=== PATIENT | female | born 1960 | race Caucasian/White ===

== ENCOUNTER → 2019-02-14 17:22 | Outpatient (CLI) | payer BC, SELFPAY ==
[2019-02-20 10:00] LABS: HPV Reflexed? NOT INDICATED
== END ==
PROVIDERS: Referring Provider Obstetrics & Gynecology; Visit Provider Obstetrics & Gynecology
DX: Z12.4 Encounter for screening for malignant neoplasm of cervix (principal)
CPT/HCPCS: 88175; G0145

== ENCOUNTER 2021-03-31 11:30 | Outpatient (CLI) | payer BC, SELFPAY ==
[2021-04-06 20:32] LABS: HPV Reflexed? NOT INDICATED
== END 2021-03-31 23:59 | disposition home or self-care (01) ==
LOC: LABSPEC 04-01 09:04
PROVIDERS: Visit Provider Obstetrics & Gynecology
DX: Z12.4 Encounter for screening for malignant neoplasm of cervix (principal)
CPT/HCPCS: 88175; G0145

== ENCOUNTER 2024-02-27 14:28 | Inpatient (IN) | payer BC, SELFPAY ==
[2024-02-27 14:30] VITALS: BP 147/79; PULSE 113; RESP 18; TEMP 37.2; O2SAT 98; BMI 37.2
--- NOTE | 2024-02-27 15:13 | EX.ED.DYSGE1 ---
HPI History of Present Illness Chief Complaint: Flank Pain PFSH PFSH Medical History (Updated 02/27/24 @ 17:29 by Disha Taylor) Hyperthyroidism Kidney stones Kidney disease Non-smoker Acid reflux Hypothyroid Home Medications ?Medication ?Instructions ?Recorded ?Last Taken ?Type cholestyramine (with sugar) 4 gram 4 ea PO 4X/DAY 02/27/24 Unknown History oral powder ciprofloxacin HCl 500 mg tablet 500 mg PO BID #14 tabs 02/27/24 Unknown Rx (Cipro) levothyroxine 100 mcg tablet 100 mcg PO DAILY 02/27/24 Unknown History levothyroxine 25 mcg tablet mcg PO MOWEFR tue and tuesday02/27/24 Unknown History takes 25 mcg omeprazole 20 mg capsule,delayed 20 mg PO DAILY 02/27/24 Unknown History release oxycodone 5 mg tablet 5 mg PO Q6H PRN pain 3 days #14 02/27/24 Unknown Rx tabs sulfamethoxazole 800 1 tab PO BID 02/27/24 Unknown History mg-trimethoprim 160 mg tablet Allergy/AdvReac Type Severity Reaction Status Date / Time iodine Allergy PT UNSURE Verified 02/27/24 14:29 OF REACTION Surgical History (Updated 02/27/24 @ 16:37 by Sonia Cazares) History of cholecystectomy Social History Smoking Status: Never smoker EXAM Physical Exam Const Vital Signs: 02/27/24 14:30 02/27/24 16:29 Temperature 98.9 F Temperature Source Oral Pulse Rate 113 H 88 Respiratory Rate 18 16 Blood Pressure 147/79 H 99/40 L Blood Pressure Mean 101 59 Pulse Ox 98 98 Oxygen Delivery Method Room Air Room Air [facility] MDM Narrative Medical decision making narrative: HISTORY OF PRESENT ILLNESS: 63-year-old female presents concern for increased pain, nausea, vomiting diarrhea. No she was recently seen and diagnosed with a kidney stone./Kidney infection. She notes she was referred to urologist. She further states REVIEW OF SYSTEMS: Pertinent positives: Flank pain, vomiting, nausea, diarrhea Pertinent negatives: hematuria PHYSICAL EXAM: Nursing triage notes reviewed, Vital signs reviewed Constitutional: please see mdm HENT: MMM Eyes: Pupils equal round and reactive to light, Extraocular muscles intact Neck: No stridor, no JVD, full neck ROM Lungs: Clear to auscultation, No wheezing or rales. No increased work of breathing, no conversational dyspnea, no accessory muscle use, no nasal flaring. No respiratory distress noted Heart: Regular rate and rhythm, No murmurs, No rubs and No gallops, 2+ distal pulses (radial, femoral, posterior tibial) in all extremities Abdomen: Soft, there is no tenderness, rigidity, rebound or guarding, no obvious peritoneal signs, no palpable pulsatile abdominal masses, no auscultated abdominal bruit : Left CVA tenderness Extremities: No edema Neuro: No new focal neurological deficits, cranial nerves II through XII intact, 5/5 strength in all present extremities. Intact sensation to light touch in all present extremities, 2+ reflexes bilateral patella tendons. Skin: No rash or lesions noted MEDICAL DECISION MAKING: Chief Complaint: Flank pain External records reviewed: Reviewed Clinisync: Reviewed results from [facility]. Reviewed CT scan of the abdomen pelvis no contrast from February 21, 2024 which showed nonobstructing kidney stones Factors affecting care: Nephrolithiasis Social determinants of health: none History obtained from others: none Consults: Urology (Dr. Peñaloza) -recommended admission for definitive urologic intervention. MDM Narrative: Patient was initially tachycardic (rate of 113) otherwise afebrile and nontoxic-appearing. Exam left CVA tenderness I considered the following differential diagnosis: Nephrolithiasis, pyelonephritis ALL IMAGES (IF OBTAINED) HAVE BEEN PERSONALLY REVIEWED AND INTERPRETED BY MYSELF. CT scan of the abdomen pelvis reviewed by myself showed evidence of left nephrolithiasis. Awaiting radiology's interpretation CBC without leukocytosis, severe anemia, no thrombocytopenia. BMP with signs of dehydration with hyponatremia and hypokalemia, no significant electrolyte abnormalities otherwise, no signs of metabolic acidosis or endorgan hypoperfusion LFTs show no evidence of hepatobiliary pathology. Urinalysis without evidence of urinary inflammation, some bacteria but negative nitrite. Given patient is already on oral antibiotics will cover with IV ceftriaxone. On reevaluation patient's vital signs improved with heart rate of 94. Discussed case with urologist on-call recommends admission for definitive urologic intervention. Patient medicine condition. The patient and/or family, caregivers express understanding. The patient and/or family, caregivers agrees with the plan. Shared decision making: I will have a discussion with the patient and or visitors regarding risk/benefits of further testing or admission. They will be made aware of of the risk/benefits inherent in this decision they will be given the opportunity to voice understanding. Total critical care time today provided was at least 0 minutes. This excludes separately billable procedures. Critical care time (if documented) is secondary to the patient having high probability of clinically significant/life threatening deterioration in the patient's condition which required my urgent intervention. Impression: 1. Flank pain 2. Nephrolithiasis 3. UTI Dispo: Admit This note was generated with UserTesting dictation software. It may contain incorrect words, spelling, and punctuation that were not noted in review of the chart prior to signing. Lab Data Labs: Laboratory Results - last 24 hr 02/27/24 15:04 WBC 6.8 RBC 4.56 Hgb 12.9 Hct 39.3 MCV 86.2 MCH 28.3 MCHC 32.8 RDW Std Deviation 42.9 RDW Coeff of Naty 13.7 Plt Count 191 MPV 10.5 Immature Gran % (Auto) 0.400 Neut % (Auto) 84.7 H Lymph % (Auto) 6.7 [place] % (Auto) 7.8 Eos % (Auto) 0.3 Baso % (Auto) 0.1 Absolute Neuts (auto) 5.7 Absolute Lymphs (auto) 0.45 L Nucleated RBC % 0 Sodium 130 L Potassium 3.3 L Chloride 102 Carbon Dioxide 21.0 Anion Gap 7 BUN 11 Creatinine 1.24 H Estim Creat Clear Calc 50.32 Est GFR (MDRD) Af Amer 56 L Est GFR (MDRD) Non-Af 46 L BUN/Creatinine Ratio 8.9 L Glucose 133 H Calcium 8.6 Total Bilirubin 0.50 AST 39 H ALT 39 Alkaline Phosphatase 89 Total Protein 7.3 Albumin 3.4 Globulin 3.9 Albumin/Globulin Ratio 0.9 Urine Color Yellow Urine Clarity Sl. Cloudy Urine pH 6.0 Ur Specific [place] 1.015 Urine Protein 30 H Urine Glucose (UA) Normal Urine Ketones Negative Urine Occult Blood 250 H Urine Nitrite Negative Urine Bilirubin 1 H Urine Urobilinogen 1 H Ur Leukocyte Esterase 100 H Urine RBC 0-5 SEEN Urine WBC 0-5 SEEN Ur Squamous Epith Cells 0-5 SEEN Ur Transition Epith Cell 0-5 SEEN Urine Bacteria 1+ Urine Mucus 1+ Urine Yeast 1+ Radiography Diagnostic Testing: Clinical Impression(s) from Imaging Studies Abdomen/Pelvis CT 02/27/24 15:52 IMPRESSION: Left greater than right nonobstructive uroliths as above Electronically Signed: Eze Bryant MD at 16:32 EST , Discharge Plan Disposition Disposition: Acute Care Hospital [facility] Discharge Date/Time: 02/27/24 17:09
[2024-02-27 15:17] LABS: Absolute Lymphocyte Count 0.45 X10^3/uL (0.83-4.51); Absolute Neutrophil Count 5.7 X10^3/uL (2.0-7.7); Basophil# 0.01 X10^3/uL; Basophil% 0.1 % (0-1); Eosinophil# 0.02 X10^3/uL; Eosinophils% 0.3 % (0-5); Hematocrit 39.3 % (37-47); Hemoglobin 12.9 g/dL (12.0-15.0); Lymphocyte # 0.45 X10^3/ul (0.83-4.51); Lymphocyte % 6.7 % (19-41); Mean Corp Hgb Conc 32.8 g/dL (32-36); Mean Corpuscular Hgb 28.3 pg (27.0-32.0); Mean Corpuscular Volume 86.2 fL (81-99); Mean Platelet Vol. 10.5 fl (6.2-12.0); Monocyte# 0.53 X10^3/uL; Monocyte% 7.8 % (0-10); NRBC Flagged by Analyzer 0 % (0-5); Neutrophil # 5.72 X10^3/uL (2.7-7.7); Neutrophil % 84.7 % (47-70); POSITIVE DIFFERENTIAL YES; Platelet Count 191 K/mm3 (150-450); RBC Distribution Width CV 13.7 % (11.6-14.6); RBC Distribution Width SD 42.9 fl (35.1-43.9); Red Blood Count 4.56 M/mm3 (4.2-5.4); White Blood Count 6.8 K/mm3 (4.4-11.0)
[2024-02-27 15:18] LABS: Color, Urine Yellow (Yellow); Glucose, Dipstick Normal (Normal); Ketone-Dipstick Negative (Negative); Leukocyte Esterase-Dipstick 100 /ul (Negative); Nitrite-Dipstick Negative (Negative); Occult Blood-Urine 250 /ul (Negative); Protein-Dipstick 30 mg/dl (Negative); Specific Gravity, Urine 1.015 (1.002-1.030); Urine Clarity Sl. Cloudy (Clear); Urine Urobilinogen 1 mg/dl (Normal)
[2024-02-27 15:25] LABS: Urine Bilirubin Dipstick 1 mg/dL (Negative)
[2024-02-27] MEDS: Ketorolac 15 MG/ML Vial IV (15:27)
[2024-02-27] MEDS: Ondansetron 4 MG/2 ML Vial IV (15:27)
[2024-02-27 15:28] LABS: Red Blood Cells-Urine 0-5 SEEN /hpf (0-5); Squamous Epithelial Cells - UA 0-5 SEEN /hpf (5-10); White Blood Cells 0-5 SEEN /hpf (0-5)
[2024-02-27 15:29] LABS: Mucous, Urine 1+ /hpf (<or=2+); Transitional Epithelial - Ur 0-5 SEEN /hpf (0-5)
[2024-02-27 15:30] LABS: ALB/GLOB Ratio 0.9 RATIO (0.9-2.4); AST(SGOT) 39 U/L (15-37); Alanine Aminotransfer ALT/SGPT 39 U/L (13-56); Albumin, Serum 3.4 g/dL (3.2-5.0); Alkaline Phosphatase 89 U/L (45-117); Anion Gap 7 (5-15); BUN 11 mg/dL (7-18); BUN/Creat Ratio 8.9 RATIO (10-20); Bacteria 1+ /hpf (None Seen); Calcium,Total 8.6 mg/dL (8.5-10.1); Chloride 102 mmol/L (98-107); Creatinine, Serum 1.24 mg/dL (0.55-1.02); EST Glomerular Filtration Rate 46 mL/min (>60); Est Glom Filt Rate - Afr Amer 56 mL/min (>60); Estimated Creatinine Clearance 50.32 ml/min; Globulin 3.9 g/dL (2.2-4.2); Glucose 133 mg/dL (74-106); Potassium 3.3 mmol/L (3.5-5.1); Protein, Total 7.3 g/dL (6.4-8.2); Sodium Level 130 mmol/L (136-145); Yeast-Urine 1+ /hpf (None Seen)
--- NOTE | 2024-02-27 15:52 | CT_ITS ---
STUDY: CT ABDOMEN AND PELVIS WITHOUT CONTRAST REASON FOR EXAM: Female, 63 years old. Kidney Stone RADIATION DOSAGE (If Supplied By Facility): CTDIvol = ( 20.83 ) mGy, DLP = ( 1191.77 ) mGycm TECHNIQUE: Transaxial images were obtained from the dome of the diaphragm to the symphysis pubis without oral contrast, and without intravenous contrast. Sagittal and coronal images were reconstructed. Individualized dose optimization techniques were used for this CT. The protocol utilizes one or more of the following dose reduction techniques: automated exposure control, adjustment of mA and/or kV according to patient size,and/or use of iterative reconstruction technique. COMPARISON: None. FINDINGS: The visualized lung bases are unremarkable. The visualized portions of the heart are within normal limits. Normal liver. Gallbladder is surgically absent. Normal spleen. Normal pancreas. Normal bilateral adrenal glands. Bilateral nonobstructing nephroliths. There is a 1.5 cm urolith within the left renal pelvis with no significant hydronephrosis noted. No distal ureterolithiasis are identified Normal visualized stomach. Normal small intestine. Colonic diverticulosis. The appendix is visualized and appears normal. Normal abdominal aorta. Normal inferior vena cava. Normal retroperitoneum. Normal urinary bladder. Normal abdominal wall. Normal osseous structures. CT/Abdomen/Pelvis without Cont IMPRESSION: Left greater than right nonobstructive uroliths as above Electronically Signed: Eze Bryant MD at 16:32 EST ,
[2024-02-27 16:29] VITALS: BP 99/40; PULSE 88; RESP 16; O2SAT 98
--- NOTE | 2024-02-27 16:29 | HP.PCM_ITS ---
HPI - General General Date of Service: 02/27/24 HPI Narrative MELANIA JIMENEZ, is a 63 F who presents with 17 mm stone in the left renal pelvis severe off and on, comes in for more and subjective fevers, plan to admit, and add for tomorrow for surgery to laser stone and stent left side. [facility] Medical History Acid reflux Hypothyroid Allergy/AdvReac Type Severity Reaction Status Date / Time iodine Allergy PT UNSURE Verified 02/27/24 14:29 OF REACTION Social History Smoking Status: Never smoker ROS Constitutional Constitutional: Denies chills, fever(s) or malaise Eyes Eyes: Denies blurry vision or change in vision ENT HEENT: Reports none Cardiovascular Cardiovascular: Denies chest pain or palpitations Respiratory/Chest Respiratory/Chest: Denies cough or shortness of breath with exertion Gastrointestinal Gastrointestinal: Denies abdominal pain, constipation or diarrhea Musculoskeletal Musculoskeletal: Denies back pain, joint stiffness or joint swelling Integumentary Integumentary: Denies dry skin, jaundice, lesions or rash Neurologic Neurologic: Denies confusion, syncope or weakness Psychiatric Psychiatric: Reports none; Denies anxiety or depression Endocrine Endocrinology: Denies excessive sweating, fatigue or flushing Hematologic/Lymphatic Hematologic/Lymphatic: Denies anemia, easy bleeding or easy bruising Vital Signs Vital Signs Vital Signs: 02/27/24 14:30 Temperature 98.9 F Temperature Source Oral Pulse Rate 113 H Respiratory Rate 18 Blood Pressure 147/79 H Blood Pressure Mean 101 Pulse Ox 98 Oxygen Delivery Method Room Air Weight Weight: 95.254 kg Body Mass Index (BMI) 37.2 Physical Exam Const alert and oriented x3 General Appearance: cooperative HEENT normocephalic, head/scalp atraumatic, EAC's normal and TM's normal bilaterally Eyes PERRL and EOMs intact bilaterally Pupil: sluggish Neck no lymphadenopathy, supple and no JVD General: trachea midline Lymph Lymphatic: no lymphadenopathy noted, lymphedema and lymphadenopathy Resp normal respiratory effort, normal air movement and clear to auscultation bilaterally Cardio regular rate, regular rhythm and peripheral pulses 2+ throughout GI soft to palpation, non-tender and non-distended Extremity normal capillary refill and no clubbing, cyanosis or edema General Extremity: no tenderness to palpation of joints or extremities Skin no rashes or lesions noted General Skin Exam: turgor normal Lesions: no lesions Rashes: no rashes Neuro CN's II-XII intact bilaterally Speech: speech normal Motor Exam: strength 5/5 throughout; Negative for general weakness Psych thought process normal, cooperative and affect normal Appearance: appropriate Results Medical Records Data Attestation: I reviewed the patient's medical records Lab / Micro Data 02/27/24 15:04 02/27/24 15:04 Labs: Laboratory Results - last 24 hr 02/27/24 15:04: WBC 6.8, RBC 4.56, Hgb 12.9, Hct 39.3, MCV 86.2, MCH 28.3, MCHC 32.8, RDW Std Deviation 42.9, RDW Coeff of Naty 13.7, Plt Count 191, MPV 10.5, Immature Gran % (Auto) 0.400, Neut % (Auto) 84.7 H, Lymph % (Auto) 6.7 L, [place] % (Auto) 7.8, Eos % (Auto) 0.3, Baso % (Auto) 0.1, Absolute Neuts (auto) 5.7, A bsolute Lymphs (auto) 0.45 L, Nucleated RBC % 0, Sodium 130 L, Potassium 3.3 L, Chloride 102, Carbon Dioxide 21.0, Anion Gap 7, BUN 11, Creatinine 1.24 H, Estim Creat Clear Calc 50.32, Est GFR (MDRD) Af Amer 56 L, Est GFR (MDRD) Non-Af 46 L, BUN/Creatinine Ratio 8.9 L, Glucose 133 H, Calcium 8.6, Total Bilirubin 0.50, A ST 39 H, ALT 39, Alkaline Phosphatase 89, Total Protein 7.3, Albumin 3.4, Globulin 3.9, Albumin/Globulin Ratio 0.9, Urine Color Yellow, Urine Clarity Sl. Cloudy, Urine pH 6.0, Ur Specific [place] 1.015, Urine Protein 30 H, Urine Glucose (UA) Normal, Urine Ketones Negative, Urine Occult Blood 250 H, Urine Nitrite Negative, Urine Bilirubin 1 H, Urine Urobilinogen 1 H, Ur Leukocyte Esterase 100 H, Urine RBC 0-5 SEEN, Urine WBC 0-5 SEEN, Ur Squamous Epith Cells 0-5 SEEN, Ur Transition Epith Cell 0-5 SEEN, Urine Bacteria 1+, Urine Mucus 1+, Urine Yeast 1+ Imaging stone in left UPJ 15mm with obstruction
--- NOTE | 2024-02-27 16:41 | DCINST_ITS ---
Discharge Instructions Diet Discharge Diet: No restrictions DC O2, CPAP, BIPAP needs Home O2 Discharge instructions: No Dressing / Incision Discharge Activity: Return to Normal Activity and May Not Drive (while taking narcotic pain medications.) Dressing / Incision Call your doctor if you observe: Fever of 101 or Higher Follow Up Care Please Follow Up With: Domenico Peñaloza MD When: Call [phone] for an appointment Test Results: Test results from this visit will be discussed in further detail at your follow- up appointment, if applicable. Discharge Plan Triage Chief Complaint: Flank Pain ED Provider: Isaiah Monroy Dx/Rx/DC Orders Instructions: ED Kidney Stone with Pain Prescriptions: New ciprofloxacin HCl [Cipro] 500 mg tablet 500 mg PO BID Qty: 14 0RF oxycodone 5 mg tablet 5 mg PO Q6H PRN (Reason: pain) 3 Days Qty: 14 0RF No Action levothyroxine 25 mcg tablet PO Patient Comments: TAKE 1 TABLET BY MOUTH ON TUESDAY, TUESDAY AND TUESDAY , TAKE WITH 100 MCG levothyroxine 100 mcg tablet 100 mcg PO DAILY omeprazole 20 mg capsule,delayed release(DR/EC) 20 mg PO DAILY sulfamethoxazole-trimethoprim 800-160 mg tablet 1 tab PO BID Primary Care Provider: Melva Han Referrals: Domenico Peñaloza MD [Med Staff - Active Staff] - Melva Han MD [Primary Care Provider] - Print Language: [place] Disposition Disposition: Home, Self Care
[2024-02-27] MEDS: 0.9% Normal Saline (1000mL) 1,000 ML 999 ML IV (16:43)
[2024-02-27] MEDS: Ceftriaxone 2 GM in 0.9% Normal Saline (50mL MB+) 50 ML IV (17:04)
[2024-02-27 17:08] VITALS: BP 109/74; PULSE 89; RESP 16; TEMP 36.9; O2SAT 97
[2024-02-27 17:22] VITALS: BMI 40.0
[2024-02-27] MEDS: Acetaminophen 325 MG Tablet 650 MG PO (17:38)
[2024-02-27] MEDS: oxyCODONE 5 MG Tablet PO (17:39)
[2024-02-27 17:59] VITALS: BP 125/56; PULSE 94; RESP 20; TEMP 36.3; O2SAT 98
[2024-02-27] MEDS: Metoclopramide 10 MG/2 ML Vial IV (19:42)
[2024-02-27 19:46] VITALS: BP 92/37; PULSE 78; RESP 18; TEMP 37.2; O2SAT 97
[2024-02-27 20:31] VITALS: BP 107/52
[2024-02-27] MEDS: Mag Hydrox/Al Hydrox/Simeth 30 ML UDC PO (20:31)
[2024-02-27] MEDS: Ciprofloxacin 400 MG/200 ML BAG 200 MG IV (22:07)
[2024-02-27] MEDS: Docusate Sodium 100 MG Capsule 200 MG PO (22:07)
[2024-02-27] MEDS: 0.9% Normal Saline (1000mL) 1,000 ML 50 ML IV (22:07)
[2024-02-28] VITALS (53 sets, daily range): BP systolic 69–167; BP diastolic 39–97; PULSE 84–115; RESP 12–26; TEMP 36.5–39.4; O2SAT 85–99; BMI 40.0
[2024-02-28] MEDS: Ondansetron 4 MG/2 ML Vial IV ×3 (00:10→22:52)
[2024-02-28] MEDS: Mag Hydrox/Al Hydrox/Simeth 30 ML UDC PO ×2 (00:46→20:12)
--- NOTE | 2024-02-28 00:57 | EKG12_ITS ---
Test Reason : CP Blood Pressure : */* mmHG Vent. Rate : 78 BPM Atrial Rate : 78 BPM P-R Int : 156 ms QRS Dur : 90 ms QT Int : 392 ms P-R-T Axes : 37 22 34 degrees QTcB Int : 446 ms Normal sinus rhythm Normal ECG No previous ECGs available Confirmed by GREG RICKETTS, KE ([id number]), digital editor BÁRBARA GUTIERREZ ([id number]) on 03/06/2024 7:46:53 AM Referred By: SUSANA Confirmed By: KE GARZA MD
--- NOTE | 2024-02-28 01:01 | EKG12_ITS ---
Test Reason : P Blood Pressure : */* mmHG Vent. Rate : 90 BPM Atrial Rate : 90 BPM P-R Int : 140 ms QRS Dur : 84 ms QT Int : 376 ms P-R-T Axes : 64 22 40 degrees QTcB Int : 459 ms Normal sinus rhythm with sinus arrhythmia Low voltage QRS Nonspecific ST abnormality Abnormal ECG When compared with ECG of 28-Feb-2024 00:57, MANUAL COMPARISON REQUIRED DATA IS UNCONFIRMED Confirmed by GREG RICKETTS, KE ([id number]), fan mail editor DENISHA SELLERS ([id number]) on 03/05/2024 2:05:47 PM Referred By: Confirmed By: KE GARZA MD
[2024-02-28] MEDS: 0.9% Normal Saline (1000mL) 1,000 ML 15 ML IV (07:00)
--- NOTE | 2024-02-28 07:20 | PCM.PN.GU ---
Subjective Subjective Plan to proceed with laser lithotripsy of the left kidney stone today patient is n.p.o. and ready for surgery Objective Data Objective Data Vital Signs: Vital Signs Temp Pulse Resp BP Pulse Ox O2 Del Method 99.7 F H 98 18 108/65 96 Room Air 02/28/24 06:19 02/28/24 06:19 02/28/24 06:19 02/28/24 06:19 02/28/24 06:19 02/28/24 06:19 Oxygen Delivery Method Room Air Weight: 102.5 kg Body Mass Index (BMI) 40.0 Intake & Output: Intake and Output for Last 24 Hours 02/26/24 02/27/24 02/28/24 23:59 23:59 23:59 Intake Total 1250 / 1250 300 / 300 Balance 1250 / 1250 300 / 300 Lab / Micro Data 02/27/24 15:04 02/27/24 15:04 Labs: Laboratory Results - last 24 hr 02/27/24 15:04: WBC 6.8, RBC 4.56, Hgb 12.9, Hct 39.3, MCV 86.2, MCH 28.3, MCHC 32.8, RDW Std Deviation 42.9, RDW Coeff of Naty 13.7, Plt Count 191, MPV 10.5, Immature Gran % (Auto) 0.400, Neut % (Auto) 84.7 H, Lymph % (Auto) 6.7 L, [place] % (Auto) 7.8, Eos % (Auto) 0.3, Baso % (Auto) 0.1, Absolute Neuts (auto) 5.7, Absolute Lymphs (auto) 0.45 L, Nucleated RBC % 0, Sodium 130 L, Potassium 3.3 L, Chloride 102, Carbon Dioxide 21.0, Anion Gap 7, BUN 11, Creatinine 1.24 H, Estim Creat Clear Calc 50.32, Est GFR (MDRD) Af Amer 56 L, Est GFR (MDRD) Non-Af 46 L, BUN/Creatinine Ratio 8.9 L, Glucose 133 H, Calcium 8.6, Total Bilirubin 0.50, AST 39 H, ALT 39, Alkaline Phosphatase 89, Total Protein 7.3, Albumin 3.4, Globulin 3.9, Albumin/Globulin Ratio 0.9, TSH 1.020, Urine Color Yellow, Urine Clarity Sl. Cloudy, Urine pH 6.0, Ur Specific [place] 1.015, Urine Protein 30 H, Urine Glucose (UA) Normal, Urine Ketones Negative, Urine Occult Blood 250 H, Urine Nitrite Negative, Urine Bilirubin 1 H, Urine Urobilinogen 1 H, Ur Leukocyte Esterase 100 H, Urine RBC 0-5 SEEN, Urine WBC 0-5 SEEN, Ur Squamous Epith Cells 0-5 SEEN, Ur Transition Epith Cell 0-5 SEEN, Urine Bacteria 1+, Urine Mucus 1+, Urine Yeast 1+ Radiography Diagnostic Testing: Radiology Impression Abdomen/Pelvis CT 02/27/24 15:52 IMPRESSION: Left greater than right nonobstructive uroliths as above Electronically Signed: Eze Bryant MD at 16:32 EST , Assessment & Plan Assessment/Plan (1) Left renal stone:
--- NOTE | 2024-02-28 07:26 | PRE.ANES_ITS ---
ASA Classification* ASA Classification ASA Classification: 3 (BMI) Assessment & Plan Anesthesia* Anesthesia Assessment Anesthesia Assessment: Discussed sedation and/or anesthesia options, risks, benefits, and alternatives with patient/parents/legal guardian/POA. Questions invited. The patient/parents/legal guardian/POA seems to understand and agrees to proceed with anesthesia plan. Reviewed the physical assessment, medical history, allergy history and patient home medications list prior to surgery/procedure/anesthetic and documented any changes. Performed airway and anesthesia risk assessments. Anesthesia Type Anesthesia Type: General History Source History Obtained from:: Patient and Chart Anesthesia Focused Assessment* Temperature: 99.7 F Pulse Rate: 98 Blood Pressure: 108/65 Respiratory Rate: 18 Pulse Ox: 96 Oxygen Delivery Method: Room Air Airway Assessment Mouth opens: >3 cm Mallampati Score: II Teeth Condition: Chipped/Broken (Patient has a silver filling which is partially following up per patient) Neck Range of motion (ROM): Limited ROM Focused Labs Anesthesia Preop lab: CBC WBC 6.8 K/mm3 (4.4-11.0) 02/27/24 15:04 RBC 4.56 M/mm3 (4.2-5.4) 02/27/24 15:04 Hgb 12.9 g/dL (12.0-15.0) 02/27/24 15:04 Hct 39.3 % (37-47) 02/27/24 15:04 Plt Count 191 K/mm3 (150-450) 02/27/24 15:04 CHEMISTRY Potassium 3.3 mmol/L (3.5-5.1) L 02/27/24 15:04 Sodium 130 mmol/L (136-145) L 02/27/24 15:04 BUN 11 mg/dL (7-18) 02/27/24 15:04 Creatinine 1.24 mg/dL (0.55-1.02) H 02/27/24 15:04 Glucose 133 mg/dL (74-106) H 02/27/24 15:04 TSH 1.020 uIU/mL (0.358-3.740) 02/27/24 15:04 COAG Pre-Assessment Diagnosis/Proposed Procedure Planned Operative Procedure(s): Cystoscopy. Left urethroscopy. Laser of stone and stent placement Anesthesia History Anesthesia History - health and wellness director: Anesthesia History - health and wellness director Hx Hospitalization Any Problems With Anesthesia No 02/27/24 18:06 Cholinesterase deficiency No 02/27/24 18:06 You/Your Family Experience No 02/27/24 18:06 fever (hyperthermia) with Relationship Recent Exposure to Contagious No 02/27/24 18:06 Disease Does patient have nerve No 02/27/24 18:06 stimulator Patient instructed to have No 02/27/24 18:06 device shut off --Does patient have Pacemaker No 02/28/24 06:19 or ICD? When Was Last Pacemaker Check QUESTION #4 FULL TEXT: You/Your Family Experience fever (hyperthermia) with Anesthesia Last Oral Intake Last Oral intake: Last Oral Intake NPO since 00:30 02/28/24 06:19 Meds taken in AM with sips of No 02/28/24 06:19 water? Meds patient instructed to take am of surgery PONV PONV - health and wellness director: PONV - health and wellness director Female HX of Motion Sickness HX of N/V After Surgery Non-Smoker Duration of Surgery greater than 60 minutes Number of Risk Factors PONV Score Height & Weight Height & Weight: Anesthesia: Height & Weight Height 5 ft 2.99 in 02/28/24 06:19 Weight: 102.5 kg 02/28/24 06:19 Body Mass Index (BMI) 40.0 02/28/24 06:19 Respiratory Assessment Respiratory Assessment - health and wellness director: Respiratory Tract Infection Hx - health and wellness director Hx Respiratory Tract Infection No 02/27/24 18:06 Any additional information?: Yes Hx Respiratory Tract Infection: Yes (Patient has a slight allergy cough.) STOP Sleep Apnea STOP Sleep Apnea - health and wellness director: STOP Sleep Apnea - health and wellness director Hx Hypertension No 02/27/24 17:22 Hx Sleep Apnea No 02/27/24 17:22 CPAP BIPAP Do you snore loudly (louder Yes 02/27/24 17:22 than talking or can be heard Do you often feel tired/ No 02/27/24 17:22 fatigued/ sleepy during daytime? Has anyone observed you stop No 02/27/24 17:22 breathing during sleep? STOP Results Negative 02/27/24 17:22 QUESTION #5 FULL TEXT : Do you snore loudly (louder than talking or can be heard through closed doors)? Tobacco Use History Tobacco Use History - health and wellness director: Tobacco Use History - health and wellness director Tobacco Use Smoking Status Never smoker 02/27/24 17:22 Hx Tobacco Use No 02/27/24 17:22 Years Smoking Packs Smoked per Day Smoking Cessation Date was within the last 15 years Hx Smoking Cessation Date Hx Smoking Cessation Counseling Hematologic Medial History Hematologic Hx - health and wellness director: Hematologic Medical Hx - payroll benefits administrator Hx of Blood Transfusion No 02/27/24 17:22 Hx of Transfusion in last 3 No 02/27/24 17:22 Months Date of Last Transfusion (if within last 3 months) Ever experience any problems No 02/27/24 17:22 with transfusion(s)? Specify any problems Hx of Preganancy in last 3 N/A 02/27/24 17:22 Months Nurse Filling Out Transfusion TWOLF 02/27/24 17:22 & Questions: Date: 02/27/24 02/27/24 17:22 Time: 17:26 02/27/24 17:22 Patient unable to answer at this time (ie. confused, unrespo /Reproduction History /Reproductive History - health and wellness director: /Reproductive Hx- health and wellness director Hx Now No 02/27/24 18:06 Gestational Age (in weeks): EDC: Hx Hx Para Hx Section SAB No 02/27/24 18:06 Active Medications Active Medications: Current Medications Generic Name Dose Route Start Last Admin Trade Name Freq PRN Reason Stop Dose Admin Acetaminophen 650 mg 02/27/24 16:36 02/27/24 17:38 Acetaminophen 325 Mg Tablet PO 650 mg Q6H PRN PRN Administration Pain Score 1-10 Al Hydroxide/Mg Hydroxide 30 ml 02/27/24 16:36 02/28/24 00:46 Mag Hydrox/Al Hydrox/Simeth 30 Ml Udc PO 30 ml Q4H PRN PRN Administration HEARTBURN Docusate Sodium 200 mg 02/27/24 22:00 02/27/24 22:07 Docusate Sodium 100 Mg Capsule PO 200 mg BID SAUNDRA Administration Sodium Chloride 1,000 mls @ 50 mls/hr 02/27/24 16:40 02/27/24 22:07 IV 03/01/24 07:59 50 mls/hr .Q20H SAUNDRA Administration Ciprofloxacin 400 mg in 200 mls @ 200 mls/hr 02/27/24 22:00 02/27/24 23:12 Cipro IV Infused Q12 SAUNDRA Infusion Sodium Chloride 100 mls @ 15 mls/hr 02/27/24 17:29 IV .Q6H40M PRN Saline Flush Sodium Chloride 100 mls @ 15 mls/hr 02/27/24 17:29 IV .Q6H40M PRN Additional IVPB Infusion Sodium Chloride 1,000 mls @ 15 mls/hr 02/28/24 06:55 02/28/24 07:00 IV 03/04/24 20:14 15 mls/hr .Q48H SAUNDRA Administration Protocol Metoclopramide HCl 10 mg 02/27/24 16:36 02/27/24 19:42 Metoclopramide 10 Mg/2 Ml Vial IV 10 mg Q8H PRN PRN Administration Nausea/vomiting Morphine Sulfate 2 mg 02/27/24 16:36 Morphine 2 Mg/Ml Syringe IV Q2H PRN Pain Score 6-10 Nutritional Formula (Lactose Free) 120 ml 02/28/24 08:00 Ensure Plus High Protein 120 Ml Liquid PO TIDCM SAUNDRA Ondansetron HCl 4 mg 02/27/24 16:36 02/28/24 00:10 Ondansetron 4 Mg/2 Ml Vial IV 4 mg Q8H PRN Administration NAUSEA/VOMITING Oxycodone HCl 5 - 10 mg 02/27/24 16:36 02/27/24 17:39 Oxycodone 5 Mg Tablet PO 5 mg Q6H PRN PRN Administration Pain Score 4-10 Sodium Chloride 10 - 40 ml 02/27/24 17:29 0.9% Saline Lock 10 Ml Syringe IV UD PRN SALINE FLUSH PFSH Medical History Hyperthyroidism Kidney stones Kidney disease Non-smoker Acid reflux Hypothyroid Home Medications ?Medication ?Instructions ?Recorded ?Last Taken ?Type cholestyramine (with sugar) 4 gram 4 ea PO 4X/DAY 02/27/24 Unknown History oral powder ciprofloxacin HCl 500 mg tablet 500 mg PO BID #14 tabs 02/27/24 Unknown Rx (Cipro) levothyroxine 100 mcg tablet 100 mcg PO DAILY 02/27/24 Unknown History levothyroxine 25 mcg tablet mcg PO FR tue and tuesday02/27/24 Unknown History takes 25 mcg omeprazole 20 mg capsule,delayed 20 mg PO DAILY 02/27/24 Unknown History release oxycodone 5 mg tablet 5 mg PO Q6H PRN pain 3 days #14 02/27/24 Unknown Rx tabs Allergy/AdvReac Type Severity Reaction Status Date / Time iodine Allergy PT UNSURE Verified 02/27/24 14:29 OF REACTION Surgical History History of cholecystectomy Social History Smoking Status: Never smoker Review of Systems (Anesthesia) ROS Narrative System reviewed and no additional complaints, except as documented.
--- NOTE | 2024-02-28 08:41 | PCM.OPRPT ---
Operative Report (Standard) Operative Information Date of Procedure: 02/28/24 Pre-Operative Diagnosis: Large left renal calculi Post-Operative Diagnosis: The same Surgery/Procedure Performed: Cystoscopy, balloon dilation of left ureter, left ureteroscopy laser lithotripsy of stone and left stent placement food and beverage assistant: No Type of Anesthesia: General RN Documented Start/Stop Times: Operation Date: 02/28/24 07:30 Case Time Into Pre-Op 02/28/24 06:50 Out of Pre-Op 02/28/24 07:33 Anesthesia Start 02/28/24 07:37 Into Room 02/28/24 07:37 Procedure Start 02/28/24 07:52 Procedure Start Time: 07:52 Procedure Stop Time: 08:41 Select all DRAINS/GRAFTS/IMPLANTS that apply: Drains Drain details: 6 x 26 stent Estimated Blood Loss: None Specimen collected: No Description of surgery: Patient was taken back to the operating room after smooth induction of anesthesia she was placed in dorsolithotomy position. Went into the bladder with a 21 [place] rigid cystourethroscope, cannulated the left ureteral orifice with a wire and a balloon dilator balloon dilated the distal left ureter I then went up the left ureter with the flexible ureteroscope was able to get into the renal pelvis and identified a very large 15 mm stone in her left renal pelvis we then used a 200 ?m laser fiber and we used a thulium laser energy settings were 1.5 J at 10 Hz and 0.4 J at 200 Hz we then performed laser lithotripsy and lasered the stone completely into small little pieces it took about 45 minutes to laser the stone completely. After the stone was lasered completely into smaller pieces that should all pass on their own I then put a wire through the ureteroscope backed out the ureteroscope and over the wire placed a stent up in the left kidney the stent coiled in the kidney and bladder in good position patient's bladder was drained left the string of the stent but cut it short to prevent early extraction and then patient anesthetic was reversed taken back to PACU in good condition she will go home today and she has a follow-up in the office in about a week for cystoscopy stent removal. Surgical Findings: Large 15 mm stone lasered completely into small little pieces Complications Complications: No Admit VTE Documentation VTE Present on Admission: No VTE Mechan Device Prophylaxis: SCD's VTE Pharm Prophylaxis ordered?: No
--- NOTE | 2024-02-28 09:25 | PCM.POSTANE2 ---
Anesthesia Postop Eval I Sum Anesthesia Postop Eval I Summary Anesthesia Postop Eval I Summary: Anesthesia Postop Eval I: Assessment Summary Airway patent Spontaneous unlabored respirations Mental status nausea Vomiting Anesthesia Postop Eval I: Fluid Summary Crystalloid volume administer (ml) Colloids volume administered ( ml) Blood Product volume administered (ml) Total IV fluid infused Anesthesia Postop Eval I: Summary Notes Anesthesia Complication Anesthesia Complication Comment: Post-operative progress note Anesthesia: Postop Eval II Evaluation Mental status: Awake and Calm Pain Level: 1 nausea: No Vomiting: No Complications Anesthesia Complication: No
--- NOTE | 2024-02-28 09:27 | PCM.POST.ANE ---
Anesthesia: Postop Eval I Current Vital Signs Temperature: 97.9 F Pulse Rate: 102 Blood Pressure: 131/69 Respiratory Rate: 18 Pulse Ox: 93 Oxygen Delivery Method: Simple Mask Oxygen Flow Rate (L/min): 8 Assessment Airway patent: Yes Spontaneous unlabored respirations: Yes Mental status: Awake and Calm nausea: No Vomiting: No Anesthesia Complication: No Fluid Hydration Crystalloid volume administer (ml): 1,000 Total IV fluid infused: 1,000 Progress Note Anesthesia document: Postop Eval 1 completed: Yes
[2024-02-28] MEDS: Ciprofloxacin 400 MG/200 ML BAG 200 MG IV (10:12)
[2024-02-28] MEDS: Morphine 2 MG/ML Syringe IV (10:32)
--- NOTE | 2024-02-28 11:29 | NURSING ---
warehouse helper notified Dr. Barreto called and requesting patient to be moved to ICU for sepsis. Primary RN also updated.
[2024-02-28] MEDS: 0.9% Normal Saline (1000mL) 1,000 ML 999 ML IV ×3 (11:30→13:51)
--- NOTE | 2024-02-28 11:35 | RAD_ITS ---
STUDY: X-RAY CHEST REASON FOR EXAM: Female, 63 years old. Fever TECHNIQUE: Single AP portable view of the chest. COMPARISON: None. FINDINGS: The lungs are clear and expanded. There is no demonstrated pleural abnormality. There is moderate cardiac enlargement. Normal mediastinum and lino. Normal visualized pulmonary arteries. Normal visualized aortic arch and descending thoracic aorta. There are degenerative changes of the visualized thoracic spine. Normal visualized ribs, clavicles, and shoulders. There is no demonstrated abnormality of the visualized soft tissue structures of the upper abdomen. RAD/Chest 1 View (Portable) IMPRESSION: Cardiomegaly. The lungs are clear. Electronically Signed: Erick Ferreira MD at 12:19 [facility] ,
--- NOTE | 2024-02-28 11:37 | CON.PCM.HO_ITS ---
Assessment & Plan Assessment/Plan (1) Sepsis: (2) Left renal stone: (3) UTI (urinary tract infection): PLAN: Plan This 63-year-old female was transferred from [facility] to ICU for sepsis due to UTI 1. Sepsis secondary to UTI/genitourinary source from large left renal pelvis stone: Patient is being admitted in ICU from [facility] with sepsis with clinical indicators of tachycardia, hypotension, leukopenia due to large left renal pelvis stone after procedure with acute sepsis-related organ dysfunction as evidenced by hypotension, lactic acidosis, thrombocytopenia, hyperbilirubinemia and ORIANA. Sepsis protocol with 30 mL/kg isotonic fluid bolus, broad-spectrum antibiotic IV Zosyn with labs and cultures ordered. Dope Worker consulted as per protocol. 2. Bilateral large left greater than right nonobstructing stone, 1.5 cm in left renal pelvis with no significant hydronephrosis: Patient had cystoscopy, balloon dilatation of left ureter, laser lithotripsy of stone and left stent placement today on 02/28/2024. Blood culture and urine culture pending. IV ceftriaxone changed to Zosyn 3. ORIANA most likely due to obstructive stone and sepsis: Patient admitting creatinine 1.24 jumped to 1.61. BUN/creatinine ratio 8.1 suggestive of high risk going to [facility]. 4. Hypothyroidism: Patient on levothyroxine regimen. 5. Other comorbidities include GERD, history of kidney stone in the past: On PPI. 6. DVT prophylaxis, high risk: Lovenox 40 mg subcu daily. Clinical Impression(s) from Imaging Studies Abdomen/Pelvis CT 02/27/24 15:52 IMPRESSION: Left greater than right nonobstructive uroliths as above Electronically Signed: Eze Bryant MD at 16:32 EST , Chest X-Ray 02/28/24 11:35 IMPRESSION: Cardiomegaly. The lungs are clear. Electronically Signed: Erick Ferreira MD at 12:19 EST , Laboratory Results 02/27/24 15:04: WBC 6.8, RBC 4.56, Hgb 12.9, Hct 39.3, MCV 86.2, MCH 28.3, MCHC 32.8, RDW Std Deviation 42.9, RDW Coeff of Naty 13.7, Plt Count 191, MPV 10.5, Immature Gran % (Auto) 0.400, Neut % (Auto) 84.7 H, Lymph % (Auto) 6.7 L, [place] % (Auto) 7.8, Eos % (Auto) 0.3, Baso % (Auto) 0.1, Absolute Neuts (auto) 5.7, A bsolute Lymphs (auto) 0.45 L, Nucleated RBC % 0, Sodium 130 L, Potassium 3.3 L, Chloride 102, Carbon Dioxide 21.0, Anion Gap 7, BUN 11, Creatinine 1.24 H, Estim Creat Clear Calc 50.32, Est GFR (MDRD) Af Amer 56 L, Est GFR (MDRD) Non-Af 46 L, BUN/Creatinine Ratio 8.9 L, Glucose 133 H, Calcium 8.6, Total Bilirubin 0.50, AST 39 H, ALT 39, Alkaline Phosphatase 89, Total Protein 7.3, Albumin 3.4, Globulin 3.9, Albumin/Globulin Ratio 0.9, TSH 1.020, Urine Color Yellow, Urine Clarity Sl. Cloudy, Urine pH 6.0, Ur Specific [place] 1.015, Urine Protein 30 H, Urine Glucose (UA) Normal, Urine Ketones Negative, Urine Occult Blood 250 H, Urine Nitrite Negative, Urine Bilirubin 1 H, Urine Urobilinogen 1 H, Ur Leukocyte Esterase 100 H, Urine RBC 0-5 SEEN, Urine WBC 0-5 SEEN, Ur Squamous Epith Cells 0-5 SEEN, Ur Transition Epith Cell 0-5 SEEN, Urine Bacteria 1+, Urine Mucus 1+, Urine Yeast 1+ 02/28/24 11:27: WBC 3.5 L, RBC 3.90 L, Hgb 11.5 L, Hct 35.5 L, MCV 91.0 D, MCH 29.5, MCHC 32.4, RDW Std Deviation 48.3 H, RDW Coeff of Naty 14.4, Plt Count 89 L , MPV 11.3, Immature Gran % (Auto) 1.400 H, Neut % (Auto) 91.4 H, Lymph % (Auto) 4.8 L, [place] % (Auto) 0.8, Eos % (Auto) 0.8, Baso % (Auto) 0.8, Absolute Neuts (auto) 3.2, Absolute Lymphs (auto) 0.17 L, Nucleated RBC % 0, Differential Comment COMMENT, Platelet Estimate MOD DEC, Sodium Cancelled 02/28/24 11:27: Sodium 133 L, Potassium Cancelled 02/28/24 11:27: Potassium 3.2 L, Chloride Cancelled 02/28/24 11:27: Chloride 105, Carbon Dioxide Cancelled 02/28/24 11:27: Carbon Dioxide 17.0 L, Anion Gap Cancelled 02/28/24 11:27: Anion Gap 11, BUN Cancelled 02/28/24 11:27: BUN 13, Creatinine Cancelled 02/28/24 11:27: Creatinine 1.61 H, Estim Creat Clear Calc Cancelled 02/28/24 11:27: Estim Creat Clear Calc 39.60, Est GFR (MDRD) Af Amer Cancelled 02/28/24 11:27: Est GFR (MDRD) Af Amer 41 L, Est GFR (MDRD) Non-Af Cancelled 02/28/24 11:27: Est GFR (MDRD) Non-Af 34 L, BUN/Creatinine Ratio Cancelled 02/28/24 11:27: BUN/Creatinine Ratio 8.1 L, Glucose Cancelled 02/28/24 11:27: Glucose 140 H, Calcium Cancelled 02/28/24 11:27: Calcium 7.3 L, Magnesium 1.7, Total Bilirubin 2.80 H, AST 74 H, ALT 40, Alkaline Phosphatase 115, Total Creatine Kinase 205 H, Total Protein 5.0 L, Albumin 2.4 L, Globulin 2.6, Albumin/Globulin Ratio 0.9 02/28/24 11:56: PT 18.0 H, INR 1.5, APTT 33.3, Lactic Acid 5.0 H* 02/28/24 13:10: POC Glucose 115 H HPI Consult Data Date of Consult: 02/28/24 HPI Narrative Reason for Consultation: Sepsis management HPI Narrative: MELANIA JIMENEZ, is a 63 F who was admitted under Dr. Jh service for increased left-sided abdominal pain, vomiting and diarrhea on [facility] third floor. She was diagnosed with kidney stone and infection/UTI. Imaging shows 17 mm stone in the left lower pelvis and was taken to the OR today. She had cystoscopy, balloon dilatation of left ureter, laser lithotripsy of the stone and left sided stent placement. She started having fever 102.1 Fahrenheit, tachycardia 110/min, hypotension, 78/41 x 2. Then hospitalist service was consulted for management of sepsis. Patient was ordered IV ceftriaxone and 1 L bolus normal saline. I ordered total fluid 30 mill per KG body weight, IV Zosyn and sepsis workup ordered stat and transferred to ICU [facility] Medical History Hyperthyroidism Kidney stones Kidney disease Non-smoker Acid reflux Hypothyroid Home Medications ?Medication ?Instructions ?Recorded ?Last Taken ?Type cholestyramine (with sugar) 4 gram 4 ea PO 4X/DAY 02/27/24 Unknown History oral powder ciprofloxacin HCl 500 mg tablet 500 mg PO BID #14 tabs 02/27/24 Unknown Rx (Cipro) levothyroxine 100 mcg tablet 100 mcg PO DAILY 02/27/24 Unknown History levothyroxine 25 mcg tablet mcg PO MOWEFR tue and tuesday02/27/24 Unknown History takes 25 mcg omeprazole 20 mg capsule,delayed 20 mg PO DAILY 02/27/24 Unknown History release oxycodone 5 mg tablet 5 mg PO Q6H PRN pain 3 days #14 02/27/24 Unknown Rx tabs Allergy/AdvReac Type Severity Reaction Status Date / Time iodine Allergy PT UNSURE Verified 02/27/24 14:29 OF REACTION Surgical History History of cholecystectomy Social History Smoking Status: Never smoker ROS ROS Narrative Constitutional: Reports fatigue and weakness. Fever, sweating, chills HEENT: Reports systems reviewed and no addt'l complaints, except as documented Respiratory/Chest: No acute shortness of breath or respiratory distress or wheezing. CVS: Denies chest pressure or pain. Hypotension. Gastrointestinal: Was admitted with nausea vomiting. Left-sided abdominal pain/left lumbar area with radiation to left anterior abdominal wall Genitourinary: Burning pain/dysuria, increased frequency and urgency. Musculoskeletal: Denies acute joint pain or limited range of motion. No acute injury. Chronic degenerative arthritis Neurologic: Denies seizure-like symptoms. skin: No ulcer. No rash Endocrinology: Reports systems reviewed and no addt'l complaints, except as documented Hematologic/Lymphatic: Reports systems reviewed and no addt'l complaints, except as documented Rest 14 ROS are negative except as mentioned in HPI Physical Exam Narrative General: Oriented x3, Cooperative. Mild lethargy and sick HEENT: Atraumatic, PERRLA, EOMI, Normocephalic Oral: Oral mucosa dry. No Gingival or Mucosal Lesions/ Ulcerations Neck: Supple, No JVD, Negative Carotid Bruits Chest wall/Lungs: Air entry diminished in bilateral lung bases. No crepitation/rhonchi Cardiovascular: Sinus tachycardia normal S1, Normal S2, No M/G/R Abdomen: Mild tenderness present over left lumbar area. Bowel Sounds Present, Soft, : Left renal angle tenderness. Urinary retention. Dysuria/UTI Extremities: No edema, Capillary Refill Less than 3 Seconds Skin: No rashes, No breakdown Musculoskeletal: Degenerative arthritis but no Tenderness to Palpation of Joints or Extremities Neurological: Cranial nerves II-XII grossly intact, DTR 2+/4. No acute focal neurological deficit. Psych/Mental Status: Flat affect. Lab / Micro Data 02/28/24 11:27 02/28/24 11:27 Labs: Laboratory Results - last 24 hr 02/27/24 15:04: WBC 6.8, RBC 4.56, Hgb 12.9, Hct 39.3, MCV 86.2, MCH 28.3, MCHC 32.8, RDW Std Deviation 42.9, RDW Coeff of Naty 13.7, Plt Count 191, MPV 10.5, Immature Gran % (Auto) 0.400, Neut % (Auto) 84.7 H, Lymph % (Auto) 6.7 L, [place] % (Auto) 7.8, Eos % (Auto) 0.3, Baso % (Auto) 0.1, Absolute Neuts (auto) 5.7, A bsolute Lymphs (auto) 0.45 L, Nucleated RBC % 0, Sodium 130 L, Potassium 3.3 L, Chloride 102, Carbon Dioxide 21.0, Anion Gap 7, BUN 11, Creatinine 1.24 H, Estim Creat Clear Calc 50.32, Est GFR (MDRD) Af Amer 56 L, Est GFR (MDRD) Non-Af 46 L, BUN/Creatinine Ratio 8.9 L, Glucose 133 H, Calcium 8.6, Total Bilirubin 0.50, A ST 39 H, ALT 39, Alkaline Phosphatase 89, Total Protein 7.3, Albumin 3.4, Globulin 3.9, Albumin/Globulin Ratio 0.9, TSH 1.020, Urine Color Yellow, Urine Clarity Sl. Cloudy, Urine pH 6.0, Ur Specific [place] 1.015, Urine Protein 30 H, Urine Glucose (UA) Normal, Urine Ketones Negative, Urine Occult Blood 250 H, Urine Nitrite Negative, Urine Bilirubin 1 H, Urine Urobilinogen 1 H, Ur Leukocyte Esterase 100 H, Urine RBC 0-5 SEEN, Urine WBC 0-5 SEEN, Ur Squamous Epith Cells 0-5 SEEN, Ur Transition Epith Cell 0-5 SEEN, Urine Bacteria 1+, Urine Mucus 1+, Urine Yeast 1+ Imaging Radiology Impression Abdomen/Pelvis CT 02/27/24 15:52 IMPRESSION: Left greater than right nonobstructive uroliths as above Electronically Signed: Eze Bryant MD at 16:32 EST Reading Location ID and State: [facility] [place] Tel , Service support , Charges/Coding Visit Charges Office Visits / Consults: [id number] L5 Est 40min
[2024-02-28 11:39] LABS: Absolute Lymphocyte Count 0.17 X10^3/uL (0.83-4.51); Absolute Neutrophil Count 3.2 X10^3/uL (2.0-7.7); Basophil# 0.03 X10^3/uL; Basophil% 0.8 % (0-1); Eosinophil# 0.03 X10^3/uL; Eosinophils% 0.8 % (0-5); Hematocrit 35.5 % (37-47); Hemoglobin 11.5 g/dL (12.0-15.0); Lymphocyte # 0.17 X10^3/ul (0.83-4.51); Lymphocyte % 4.8 % (19-41); Mean Corp Hgb Conc 32.4 g/dL (32-36); Mean Corpuscular Hgb 29.5 pg (27.0-32.0); Mean Platelet Vol. 11.3 fl (6.2-12.0); Monocyte# 0.03 X10^3/uL; Monocyte% 0.8 % (0-10); NRBC Flagged by Analyzer 0 % (0-5); Neutrophil # 3.23 X10^3/uL (2.7-7.7); Neutrophil % 91.4 % (47-70); POSITIVE COUNT YES; POSITIVE DIFFERENTIAL YES; POSITIVE MORPHOLOGY YES; Platelet Count 89 K/mm3 (150-450); RBC Distribution Width CV 14.4 % (11.6-14.6); RBC Distribution Width SD 48.3 fl (35.1-43.9); White Blood Count 3.5 K/mm3 (4.4-11.0)
[2024-02-28 11:40] LABS: Differential Indicated SCAN CRITERIA MET
[2024-02-28] MEDS: Acetaminophen 325 MG Tablet 650 MG PO ×2 (11:40→20:14)
[2024-02-28 11:56] LABS: ALB/GLOB Ratio 0.9 RATIO (0.9-2.4); AST(SGOT) 74 U/L (15-37); Alanine Aminotransfer ALT/SGPT 40 U/L (13-56); Albumin, Serum 2.4 g/dL (3.2-5.0); Alkaline Phosphatase 115 U/L (45-117); Anion Gap 11 (5-15); BUN 13 mg/dL (7-18); BUN/Creat Ratio 8.1 RATIO (10-20); CPK Total, Creatine Kinase 205 U/L (26-192); Calcium,Total 7.3 mg/dL (8.5-10.1); Chloride 105 mmol/L (98-107); Creatinine, Serum 1.61 mg/dL (0.55-1.02); EST Glomerular Filtration Rate 34 mL/min (>60); Est Glom Filt Rate - Afr Amer 41 mL/min (>60); Globulin 2.6 g/dL (2.2-4.2); Glucose 140 mg/dL (74-106); Magnesium 1.7 mg/dL (1.6-2.6); Potassium 3.2 mmol/L (3.5-5.1); Sodium Level 133 mmol/L (136-145)
[2024-02-28 12:00] LABS: Platelet Estimate MOD DEC (ADEQ)
[2024-02-28 12:31] LABS: International Normalized Ratio 1.5
[2024-02-28 12:33] LABS: Partial Thromboplast Time 33.3 Seconds (24.1-36.2)
--- NOTE | 2024-02-28 12:52 | CON.PCM.CC_ITS ---
Assessment & Plan Assessment/Plan (1) Sepsis: PLAN: Plan RECOMMENDATIONS: 1. Sepsis fluids per protocol 2. Continue empiric broad-spectrum antimicrobials. 3. Lactate with reflex. 4. Initiate vasopressor support for fluid refractory hypotension. 5. Send blood and urine cultures. 6. Continue appropriate DVT prophylaxis. IMPRESSIONS: 1. Sepsis The patient developed sepsis due to genitourinary source of infection with acute sepsis related organ dysfunction as evidenced by lactic acidemia, hyperbilirubinemia, thrombocytopenia and hypotension. She has been ordered to receive supplemental IV fluid hydration per protocol. The patient will be maintained on appropriate broad-spectrum antimicrobial therapy. The patient was noted to have a large left renal calculi on CT imaging, for which she is status post cystoscopy with laser lithotripsy and stent placement. Will plan to initiate vasopressor support, if the patient develops fluid refractory hypotension. Otherwise, continue current supportive care. 2. Acute kidney injury Most likely prerenal in etiology in the setting of #1. The patient is currently receiving IV fluid resuscitation. Continue to monitor urine output for now. No current indication for renal replacement therapy. 3. Morbid obesity/hypothyroidism/GERD Complicates care, management, recovery and prognosis. Continue home medications as indicated. TIME: 34 minutes of critical care time, independent of procedures, was spent addressing the patient's sepsis, acute kidney injury, review of all data and collaboration with care team. HPI Consult Data Date of Consult: 02/28/24 HPI Narrative Reason for Consultation: Sepsis HPI Narrative: The patient is a 63-year-old female, with a history as outlined below, who presented to the emergency department on February 26 with flank pain, nausea and vomiting. The patient did report some associated increasing urinary frequency and dysuria. CT imaging of the abdomen completed at [facility] in mid February 2024 demonstrated nonobstructing kidney stones. The patient denied any pre-existing lung conditions. He is not currently a smoker. She has never been diagnosed with sleep apnea. She does not utilize supplemental oxygen at her baseline. On presentation, the patient was noted to be afebrile and hemodynamically stable. She was initially saturating 98% on room air. Laboratory evaluation initially demonstrated a normal white blood cell count. Chemistry profile was notable for a potassium of 3.3 and creatinine of 1.24. Total bilirubin was normal at 0.50. TSH was normal at 1.020. Urine analysis was positive for leukocyte esterase and 1+ urine bacteria. CT abdomen/pelvis demonstrated a 1.5 cm urolith within the left renal pelvis without any evidence of hydronephrosis. Nonobstructing stones were noted on the right as well. The patient was placed on antimicrobials and was seen in consultation by urology. She was ultimately taken to the OR on the morning of February 27 where she underwent cystoscopy with balloon dilation of the left ureter along with left ureteroscopy laser lithotripsy and left stent placement. The patient did receive 1 L of crystalloid volume intraoperatively. Postprocedure, the patient returned to the medical surgical floor. During the hours following the completion of her urologic procedure, the patient developed fevers, tachycardia and hypotension. In light of her hypotension, she was transferred to the medical intensive care unit, where sepsis fluids were ordered. Follow-up laboratory evaluation revealed evidence of pancytopenia with a platelet count of 89,000. Serum bicarbonate was low at 17 with a creatinine of 1.6. Total bilirubin had increased to 2.8. [facility] Medical History Hyperthyroidism Kidney stones Kidney disease Non-smoker Acid reflux Hypothyroid Home Medications ?Medication ?Instructions ?Recorded ?Last Taken ?Type cholestyramine (with sugar) 4 gram 4 ea PO 4X/DAY 02/27/24 Unknown History oral powder ciprofloxacin HCl 500 mg tablet 500 mg PO BID #14 tabs 02/27/24 Unknown Rx (Cipro) levothyroxine 100 mcg tablet 100 mcg PO DAILY 02/27/24 Unknown History levothyroxine 25 mcg tablet mcg PO MOWEFR tue and tuesday02/27/24 Unknown History takes 25 mcg omeprazole 20 mg capsule,delayed 20 mg PO DAILY 02/27/24 Unknown History release oxycodone 5 mg tablet 5 mg PO Q6H PRN pain 3 days #14 02/27/24 Unknown Rx tabs Allergy/AdvReac Type Severity Reaction Status Date / Time iodine Allergy PT UNSURE Verified 02/27/24 14:29 OF REACTION Surgical History History of cholecystectomy Social History Smoking Status: Never smoker ROS ROS Narrative 10 systems were reviewed with pertinent positives as noted in the HPI above. Physical Exam Const alert and no apparent distress General Appearance: cooperative and ill appearing HEENT normocephalic and head/scalp atraumatic Eyes PERRL, EOMs intact bilaterally and conjunctivae normal Neck supple General: trachea midline Chest inspection of chest normal Resp normal respiratory effort Effort and Inspection: tachypneic Auscultation: Negative for rales, rhonchi or wheezes Cardio S1 normal heart sound and S2 normal heart sound Rate: tachycardic GI normal to inspection, nondistended, normoactive bowel sounds Extremity no clubbing, cyanosis or edema Skin no rashes or lesions noted Neuro CN's II-XII intact bilaterally, moves all extremities and no focal motor deficits Psych Mood & Affect: flat affect Lab / Micro Data 02/28/24 11:27 02/28/24 11:27 Labs: Laboratory Results - last 24 hr 02/27/24 15:04: WBC 6.8, RBC 4.56, Hgb 12.9, Hct 39.3, MCV 86.2, MCH 28.3, MCHC 32.8, RDW Std Deviation 42.9, RDW Coeff of Naty 13.7, Plt Count 191, MPV 10.5, Immature Gran % (Auto) 0.400, Neut % (Auto) 84.7 H, Lymph % (Auto) 6.7 L, [place] % (Auto) 7.8, Eos % (Auto) 0.3, Baso % (Auto) 0.1, Absolute Neuts (auto) 5.7, A bsolute Lymphs (auto) 0.45 L, Nucleated RBC % 0, Sodium 130 L, Potassium 3.3 L, Chloride 102, Carbon Dioxide 21.0, Anion Gap 7, BUN 11, Creatinine 1.24 H, Estim Creat Clear Calc 50.32, Est GFR (MDRD) Af Amer 56 L, Est GFR (MDRD) Non-Af 46 L, BUN/Creatinine Ratio 8.9 L, Glucose 133 H, Calcium 8.6, Total Bilirubin 0.50, A ST 39 H, ALT 39, Alkaline Phosphatase 89, Total Protein 7.3, Albumin 3.4, Globulin 3.9, Albumin/Globulin Ratio 0.9, TSH 1.020, Urine Color Yellow, Urine Clarity Sl. Cloudy, Urine pH 6.0, Ur Specific [place] 1.015, Urine Protein 30 H, Urine Glucose (UA) Normal, Urine Ketones Negative, Urine Occult Blood 250 H, Urine Nitrite Negative, Urine Bilirubin 1 H, Urine Urobilinogen 1 H, Ur Leukocyte Esterase 100 H, Urine RBC 0-5 SEEN, Urine WBC 0-5 SEEN, Ur Squamous Epith Cells 0-5 SEEN, Ur Transition Epith Cell 0-5 SEEN, Urine Bacteria 1+, Urine Mucus 1+, Urine Yeast 1+ 02/28/24 11:27: WBC 3.5 L, RBC 3.90 L, Hgb 11.5 L, Hct 35.5 L, MCV 91.0 D, MCH 29.5, MCHC 32.4, RDW Std Deviation 48.3 H, RDW Coeff of Naty 14.4, Plt Count 89 L , MPV 11.3, Immature Gran % (Auto) 1.400 H, Neut % (Auto) 91.4 H, Lymph % (Auto) 4.8 L, [place] % (Auto) 0.8, Eos % (Auto) 0.8, Baso % (Auto) 0.8, Absolute Neuts (auto) 3.2, Absolute Lymphs (auto) 0.17 L, Nucleated RBC % 0, Differential Comment COMMENT, Platelet Estimate MOD DEC, Sodium Cancelled 02/28/24 11:27: Sodium 133 L, Potassium Cancelled 02/28/24 11:27: Potassium 3.2 L, Chloride Cancelled 02/28/24 11:27: Chloride 105, Carbon Dioxide Cancelled 02/28/24 11:27: Carbon Dioxide 17.0 L, Anion Gap Cancelled 02/28/24 11:27: Anion Gap 11, BUN Cancelled 02/28/24 11:27: BUN 13, Creatinine Cancelled 02/28/24 11:27: Creatinine 1.61 H, Estim Creat Clear Calc Cancelled 02/28/24 11:27: Estim Creat Clear Calc 39.60, Est GFR (MDRD) Af Amer Cancelled 02/28/24 11:27: Est GFR (MDRD) Af Amer 41 L, Est GFR (MDRD) Non-Af Cancelled 02/28/24 11:27: Est GFR (MDRD) Non-Af 34 L, BUN/Creatinine Ratio Cancelled 02/28/24 11:27: BUN/Creatinine Ratio 8.1 L, Glucose Cancelled 02/28/24 11:27: Glucose 140 H, Calcium Cancelled 02/28/24 11:27: Calcium 7.3 L, Magnesium 1.7, Total Bilirubin 2.80 H, AST 74 H, ALT 40, Alkaline Phosphatase 115, Total Creatine Kinase 205 H, Total Protein 5.0 L, Albumin 2.4 L, Globulin 2.6, Albumin/Globulin Ratio 0.9 02/28/24 11:56: PT 18.0 H, INR 1.5, APTT 33.3, Lactic Acid 5.0 H* Imaging Radiology Impression Abdomen/Pelvis CT 02/27/24 15:52 IMPRESSION: Left greater than right nonobstructive uroliths as above Electronically Signed: Eze Bryant MD at 16:32 EST , Chest X-Ray 02/28/24 11:35 IMPRESSION: Cardiomegaly. The lungs are clear. Electronically Signed: Erick Ferreira MD at 12:19 EST , Sepsis Attestation Sepsis Alert: Yes Sepsis Attestation: Agree w/Sepsis Date exam was performed: 02/28/24 Time exam was performed: 13:02 Possible Source of Sepsis: Genitourinary Sepsis Organ Dysfunction Criteria Present: SBP < 90 mmHg or MAP < 65 mmHg, Total Bilirubin > 2 mg/dl, Platelets <100,000 / uL and Lactic Acid > 2 mmol/L Fluid Resuscitation Fluid resuscitation indicated?: Yes Fluid Resuscitation ordered: 30 ml/kg fluid bolus ordered Amount of fluid ordered: 3,000 Sepsis Note Date exam was performed: 02/28/24 Time exam was performed: 14:02 Sepsis Attestation: Sepsis re-evaluation was performed Response to fluids: Non Fluid responsive hypotension and Vasopressors started Charges/Coding Procedures Hospitalists Procedures: 88033 Critical Care 1st Hr
[2024-02-28] MEDS: Potassium Chloride 10mEq/100mL 10 MEQ/100 ML IV.SOLN. 100 MEQ IV BOLUS ×4 (13:26→16:24)
[2024-02-28 13:29] LABS: Bedside Glucose 115 mg/dL (74-106)
--- NOTE | 2024-02-28 13:50 | RAD_ITS ---
STUDY: X-RAY CHEST REASON FOR EXAM: Female, 63 years old. Central line placement TECHNIQUE: Single AP portable view of the chest. COMPARISON: Comparison is made with prior study done earlier today. FINDINGS: A right-sided central venous catheter has been placed with the tip at the junction of the superior vena cava and right atrium. There now is evidence of a vascular congestion and mild degree of CHF. There is no demonstrated pleural abnormality. There is mild cardiac enlargement. Normal mediastinum and lino. Normal visualized pulmonary arteries. Normal visualized aortic arch and descending thoracic aorta. Normal visualized thoracic spine. Normal visualized ribs, clavicles, and shoulders. There is no demonstrated abnormality of the visualized soft tissue structures of the upper abdomen. RAD/CXR for Line Placement IMPRESSION: Mild cardiomegaly. Vascular congestion and mild degree of CHF. Electronically Signed: Erick Ferreira MD at 14:22 EST ,
[2024-02-28] MEDS: Piperacil/Tazobactam 3.375 GM in 0.9% Normal Saline (50mL MB+) 50 ML IV ×2 (13:51→20:12)
--- NOTE | 2024-02-28 14:06 | PCM.OP.PRO2 ---
Procedures Hospitalists Procedures: 68071 Insert Non-tunnel CV Cath Non-invasive Procedural Procedure Information Description of procedure: Central Venous Catheter Indication: Septic shock Consent was obtained from: Patient A time-out was completed verifying correct patient, procedure, site, positioning, and special equipment if applicable. The patient was placed in a dependent position appropriate for central line placement based on the vein to be cannulated. The patient's right neck was prepped and draped in a sterile fashion. 1% lidocaine was used to anesthetize the surrounding skin area. A triple-lumen catheter was introduced into the right internal jugular vein using the Seldinger technique and under ultrasound guidance. The catheter was threaded smoothly over the guidewire and appropriate blood return was obtained. Each lumen of the catheter was evacuated of air and flushed with sterile saline. The catheter was then sutured in place to the skin and a sterile dressing applied. Chest x-ray to confirm appropriate positioning is pending. ULTRASOUND GUIDANCE STATEMENT (Vascular Access): I performed ultrasound image acquisition and interpretation for needle placement during the procedure. The vessel was identified and found to be free of thrombosis by compression technique. A safe point of entry was marked at the skin in an angle for axis was determined. The needle was guided by obtaining free-flowing fluid and by real-time visualization.
[2024-02-28] MEDS: Norepinephrine 8 MG in 0.9% Normal Saline (250mL Bag) 242 ML 9.4 MG CONT INF (14:15)
[2024-02-28 14:22] LABS: Bacteria 0 SEEN /hpf (None Seen); Mucous, Urine 0 SEEN /hpf (<or=2+); Squamous Epithelial Cells - UA 0 SEEN /hpf (5-10)
[2024-02-28 14:38] LABS: Absolute Lymphocyte Count 0.25 X10^3/uL (0.83-4.51); Absolute Neutrophil Count 8.2 X10^3/uL (2.0-7.7); Basophil# 0.03 X10^3/uL; Basophil% 0.3 % (0-1); Eosinophil# 0.01 X10^3/uL; Eosinophils% 0.1 % (0-5); Hematocrit 29.2 % (37-47); Hemoglobin 9.5 g/dL (12.0-15.0); Lymphocyte # 0.25 X10^3/ul (0.83-4.51); Lymphocyte % 2.9 % (19-41); Mean Corp Hgb Conc 32.5 g/dL (32-36); Mean Corpuscular Hgb 29.3 pg (27.0-32.0); Mean Corpuscular Volume 90.1 fL (81-99); Mean Platelet Vol. 11.6 fl (6.2-12.0); Monocyte# 0.15 X10^3/uL; Monocyte% 1.7 % (0-10); NRBC Flagged by Analyzer 0 % (0-5); Neutrophil # 8.17 X10^3/uL (2.7-7.7); Neutrophil % 93.6 % (47-70); POSITIVE COUNT YES; POSITIVE DIFFERENTIAL YES; POSITIVE MORPHOLOGY YES; Platelet Count 61 K/mm3 (150-450); RBC Distribution Width CV 14.6 % (11.6-14.6); Red Blood Count 3.24 M/mm3 (4.2-5.4); White Blood Count 8.7 K/mm3 (4.4-11.0)
[2024-02-28 14:47] LABS: Color, Urine Red (Yellow); Glucose, Dipstick Normal (Normal); Ketone-Dipstick Negative (Negative); Leukocyte Esterase-Dipstick Negative /ul (Negative); Nitrite-Dipstick Negative (Negative); Occult Blood-Urine 50 /ul (Negative); Protein-Dipstick 500 mg/dl (Negative); Urine Bilirubin Dipstick Negative (Negative); Urine Clarity Turbid (Clear); Urine Urobilinogen Normal (Normal)
[2024-02-28 14:47] LABS: Differential Indicated SCAN CRITERIA MET
[2024-02-28 14:55] LABS: Red Blood Cells-Urine > 100 SEEN /hpf (0-5)
[2024-02-28 14:56] LABS: White Blood Cells 0-5 SEEN /hpf (0-5)
[2024-02-28 15:10] LABS: Platelet Estimate MOD DEC (ADEQ)
--- NOTE | 2024-02-28 16:04 | PCM.PN.GU ---
Subjective Subjective 63-year-old female who presented to the hospital with severe pain with a large stone in the left UPJ area. Prior to surgery she had a normal white blood count she did not look infected she did get preop antibiotics and loaded with antibiotics 24 hours before the surgery she underwent ureteroscopy and laser lithotripsy for this large stone fragmented the stone into tiny tiny pieces she was planning to going home after the surgery but she developed high fevers and chills and then sudden drop in blood pressure and developed sepsis. So at this point she has urosepsis after laser lithotripsy for large stone she is in intensive care unit he is on Levophed her blood pressure is much better but she is on pressure support urine output is marginal but stable. Continue with supportive measures. Clinically at this point she is stable. Objective Data Objective Data Vital Signs: Vital Signs Temp Pulse Resp BP Pulse Ox O2 Del Method O2 Flow Rate 99.7 F H 93 18 79/52 L 92 Nasal Cannula 6 02/28/24 15:00 02/28/24 15:27 02/28/24 15:00 02/28/24 15:00 02/28/24 15:00 02/28/24 15:34 02/28/24 15:34 Oxygen Flow Rate (L/min) 6 Oxygen Delivery Method Nasal Cannula Weight: 102.5 kg Body Mass Index (BMI) 40.0 Intake & Output: Intake and Output for Last 24 Hours 02/26/24 02/27/24 02/28/24 23:59 23:59 23:59 Intake Total 1250 / 1250 4613.49 / 4613.49 Output Total 170 / 170 Balance 1250 / 1250 4443.49 / 4443.49 Lab / Micro Data 02/28/24 14:25 02/28/24 11:27 Labs: Laboratory Results - last 24 hr 02/27/24 15:04: TSH 1.020 02/28/24 11:27: WBC 3.5 L, RBC 3.90 L, Hgb 11.5 L, Hct 35.5 L, MCV 91.0 D, MCH 29.5, MCHC 32.4, RDW Std Deviation 48.3 H, RDW Coeff of Naty 14.4, Plt Count 89 L, MPV 11.3, Immature Gran % (Auto) 1.400 H, Neut % (Auto) 91.4 H, Lymph % (Auto) 4.8 L, [place] % (Auto) 0.8, Eos % (Auto) 0.8, Baso % (Auto) 0.8, Absolute Neuts (auto) 3.2, Absolute Lymphs (auto) 0.17 L, Nucleated RBC % 0, Differential Comment COMMENT, Platelet Estimate MOD DEC, Sodium Cancelled 02/28/24 11:27: Sodium 133 L, Potassium Cancelled 02/28/24 11:27: Potassium 3.2 L, Chloride Cancelled 02/28/24 11:27: Chloride 105, Carbon Dioxide Cancelled 02/28/24 11:27: Carbon Dioxide 17.0 L, Anion Gap Cancelled 02/28/24 11:27: Anion Gap 11, BUN Cancelled 02/28/24 11:27: BUN 13, Creatinine Cancelled 02/28/24 11:27: Creatinine 1.61 H, Estim Creat Clear Calc Cancelled 02/28/24 11:27: Estim Creat Clear Calc 39.60, Est GFR (MDRD) Af Amer Cancelled 02/28/24 11:27: Est GFR (MDRD) Af Amer 41 L, Est GFR (MDRD) Non-Af Cancelled 02/28/24 11:27: Est GFR (MDRD) Non-Af 34 L, BUN/Creatinine Ratio Cancelled 02/28/24 11:27: BUN/Creatinine Ratio 8.1 L, Glucose Cancelled 02/28/24 11:27: Glucose 140 H, Calcium Cancelled 02/28/24 11:27: Calcium 7.3 L, Magnesium 1.7, Total Bilirubin 2.80 H, AST 74 H, ALT 40, Alkaline Phosphatase 115, Total Creatine Kinase 205 H, Total Protein 5.0 L, Albumin 2.4 L, Globulin 2.6, Albumin/Globulin Ratio 0.9 02/28/24 11:56: PT 18.0 H, INR 1.5, APTT 33.3, Lactic Acid 5.0 H* 02/28/24 13:10: POC Glucose 115 H 02/28/24 14:15: Urine Color Red, Urine Clarity Turbid, Urine pH 7.0, Ur Specific [place] 1.010, Urine Protein 500 H, Urine Glucose (UA) Normal, Urine Ketones Negative, Urine Occult Blood 50 H, Urine Nitrite Negative, Urine Bilirubin Negative, Urine Urobilinogen Normal, Ur Leukocyte Esterase Negative, Urine RBC > 100 SEEN, Urine WBC 0-5 SEEN, Ur Squamous Epith Cells 0 SEEN, Urine Bacteria 0 SEEN, Urine Mucus 0 SEEN 02/28/24 14:25: WBC 8.7, RBC 3.24 L, Hgb 9.5 L, Hct 29.2 L, MCV 90.1, MCH 29.3, MCHC 32.5, RDW Std Deviation 48.0 H, RDW Coeff of Naty 14.6, Plt Count 61 L, MPV 11.6, Immature Gran % (Auto) 1.400 H, Neut % (Auto) 93.6 H, Lymph % (Auto) 2.9 L, [place] % (Auto) 1.7, Eos % (Auto) 0.1, Baso % (Auto) 0.3, Absolute Neuts (auto) 8.2 H, Absolute Lymphs (auto) 0.25 L, Nucleated RBC % 0, Differential Comment COMMENT, Platelet Estimate MOD 02/28/24 14:30: Blood Type A POSITIVE, Antibody Screen NEGATIVE Micro: Microbiology 02/28/24 12:55 Nasal Secretion MRSA (PCR) - Final 02/28/24 12:55 Mucosa - Nasopharyngeal SARS-CoV-2, Influenza & RSV (PCR) - Final Radiography Diagnostic Testing: Radiology Impression Abdomen/Pelvis CT 02/27/24 15:52 IMPRESSION: Left greater than right nonobstructive uroliths as above Electronically Signed: Eze Bryant MD at 16:32 EST , Chest X-Ray 02/28/24 11:35 IMPRESSION: Cardiomegaly. The lungs are clear. Electronically Signed: Erick Ferreira MD at 12:19 EST , Chest X-Ray 02/28/24 13:50 IMPRESSION: Mild cardiomegaly. Vascular congestion and mild degree of CHF. Electronically Signed: Erick Ferreira MD at 14:22 EST , Physical Exam Const alert and oriented x3 General Appearance: cooperative HEENT normocephalic, head/scalp atraumatic, EAC's normal and TM's normal bilaterally Eyes PERRL and EOMs intact bilaterally Pupil: sluggish Neck no lymphadenopathy, supple and no JVD General: trachea midline Lymph Lymphatic: no lymphadenopathy noted, lymphedema and lymphadenopathy Resp normal respiratory effort, normal air movement and clear to auscultation bilaterally Cardio regular rate, regular rhythm and peripheral pulses 2+ throughout GI soft to palpation, non-tender and non-distended Extremity normal capillary refill and no clubbing, cyanosis or edema General Extremity: no tenderness to palpation of joints or extremities Skin no rashes or lesions noted General Skin Exam: turgor normal Lesions: no lesions Rashes: no rashes Neuro CN's II-XII intact bilaterally Speech: speech normal Motor Exam: strength 5/5 throughout; Negative for general weakness Psych thought process normal, cooperative and affect normal Appearance: appropriate Assessment & Plan Assessment/Plan (1) UTI (urinary tract infection): (2) Sepsis: (3) Left renal stone: PLAN: Status post laser of a large stone in the left kidney after surgery ended up developing sepsis at the time of the surgery the stone did not look infected I do not have any obvious purulent discharge or any signs of there was an infected stone. Continue with broad-spectrum antibiotics await cultures continue with supportive measures for the ICU her blood pressure is stabilizing hopefully she will respond and she is currently clinically stable but still in critical condition.
[2024-02-28 16:09] LABS: Reflex Lactate? Y
--- NOTE | 2024-02-28 16:14 | SEPSISATNOTE ---
Sepsis Attestation Sepsis Alert: Yes Sepsis Attestation: Agree w/Sepsis Date exam was performed: 02/28/24 Time exam was performed: 11:35 Possible Source of Sepsis: Genitourinary Sepsis Organ Dysfunction Criteria Present: SBP < 90 mmHg or MAP < 65 mmHg, SBP decrease of more than 40 mmHg, Creatinine > 2.0 mg/dL, Total Bilirubin > 2 mg/dl, Platelets <100,000 / uL and Lactic Acid > 2 mmol/L Supportive Findings: High-grade fever. Patient had urology procedure Fluid Resuscitation Fluid resuscitation indicated?: Yes Fluid Resuscitation ordered: 30 ml/kg fluid bolus ordered Amount of fluid ordered: 3,100 Sepsis Note Date exam was performed: 02/28/24 Time exam was performed: 15:30 Sepsis Attestation: Sepsis re-evaluation was performed Response to fluids: Fluid responsive hypotension
[2024-02-28] MEDS: Norepinephrine 8 MG in 0.9% Normal Saline (250mL Bag) 242 ML 56.3 MG CONT INF (19:42)
[2024-02-28] MEDS: Senna/Docusate Sodium 1 Tablet 2 TABLET PO (20:12)
[2024-02-28] MEDS: oxyCODONE 5 MG Tablet PO (22:48)
[2024-02-28] MEDS: 0.9% Saline Lock 10 ML Syringe IV (22:53)
[2024-02-29] VITALS (36 sets, daily range): BP systolic 91–151; BP diastolic 41–135; PULSE 84–100; RESP 15–23; TEMP 36.8–38.1; O2SAT 91–95; BMI 42.3
[2024-02-29] MEDS: Norepinephrine 8 MG in 0.9% Normal Saline (250mL Bag) 242 ML 37.5 MG CONT INF ×2 (01:53→13:49)
[2024-02-29] MEDS: 0.9% Saline Lock 10 ML Syringe IV (02:25)
[2024-02-29] MEDS: fentaNYL 100 MCG/2 ML Ampul 25 MCG IV (02:25)
[2024-02-29] MEDS: 0.9% Normal Saline (1000mL) 1,000 ML 15 ML IV (02:27)
[2024-02-29 03:30] LABS: Hemoglobin 11.5 g/dL (12.0-15.0); Mean Corp Hgb Conc 32.9 g/dL (32-36); Mean Corpuscular Hgb 29.4 pg (27.0-32.0); Mean Corpuscular Volume 89.5 fL (81-99); Mean Platelet Vol. 11.4 fl (6.2-12.0); POSITIVE COUNT YES; POSITIVE DIFFERENTIAL YES; POSITIVE MORPHOLOGY YES; Platelet Count 91 K/mm3 (150-450); RBC Distribution Width CV 14.9 % (11.6-14.6); RBC Distribution Width SD 48.6 fl (35.1-43.9); Red Blood Count 3.91 M/mm3 (4.2-5.4); White Blood Count 41.8 K/mm3 (4.4-11.0)
[2024-02-29 03:46] LABS: Anion Gap 9 (5-15); BUN 19 mg/dL (7-18); BUN/Creat Ratio 8.8 RATIO (10-20); Calcium,Total 7.5 mg/dL (8.5-10.1); Chloride 108 mmol/L (98-107); Creatinine, Serum 2.16 mg/dL (0.55-1.02); EST Glomerular Filtration Rate 24 mL/min (>60); Est Glom Filt Rate - Afr Amer 29 mL/min (>60); Estimated Creatinine Clearance 29.52 ml/min; Glucose 222 mg/dL (74-106); Magnesium 1.9 mg/dL (1.6-2.6); Potassium 4.6 mmol/L (3.5-5.1); Sodium Level 133 mmol/L (136-145)
[2024-02-29 03:49] LABS: Phosphorus 1.5 mg/dL (2.5-4.9)
[2024-02-29 04:05] LABS: Differential Indicated MANUAL DIFF
[2024-02-29 04:37] LABS: Eosinophil 1 % (0-5); Lymphocyte 6 % (19-41); Metamyelocyte 12 % (0-1); Monocyte 4 % (0-10); Neutrophil-Band 1 % (0-5); Neutrophil-Segmented 76 % (47-70); Total Cells Counted 100 (MANUAL DIFF)
[2024-02-29 04:39] LABS: Absolute Neutrophil Count 31.8 X10^3/uL (2.0-7.7)
[2024-02-29 04:41] LABS: Red Cell Morphology NORM C+C NORMAL (NORM C&C)
[2024-02-29 04:42] LABS: Platelet Estimate SLT DEC (ADEQ)
[2024-02-29] MEDS: Piperacil/Tazobactam 3.375 GM in 0.9% Normal Saline (50mL MB+) 50 ML IV ×3 (04:52→20:26)
[2024-02-29] MEDS: Sodium Phosphate/Na Biphos 21 MMOL in 0.9% Normal Saline (250mL Bag) 250 ML 84 MMOL IV (04:52)
--- NOTE | 2024-02-29 07:05 | PCM.PN.GU ---
Subjective Subjective 63-year-old female status post laser of a very large stone in the left renal pelvis she developed sepsis afterwards she is currently in the ICU she is getting better blood pressures better. She does complain of some abdominal pain coming from the left side down to her bladder this is fairly normal with procedure she does have a stent on that left side. Will continue to monitor that she also complains of a sore throat this could be from the anesthetic intubation etc. we can give her some lozenges for this. If she is stable she can get out of bed she still looks like she is in critical condition but improving and still in the ICU. Objective Data Objective Data Vital Signs: Vital Signs Temp Pulse Resp BP Pulse Ox O2 Del Method O2 Flow Rate 98.3 F 92 17 122/49 H 94 Room Air 3 02/29/24 07:00 02/29/24 07:00 02/29/24 07:00 02/29/24 07:00 02/29/24 07:00 02/29/24 07:00 02/29/24 00:00 Oxygen Flow Rate (L/min) 3 Oxygen Delivery Method Room Air Weight: 108.4 kg Body Mass Index (BMI) 42.3 Intake & Output: Intake and Output for Last 24 Hours 02/27/24 02/28/24 02/29/24 23:59 23:59 23:59 Intake Total 1250 / 1250 5645.90 / 5683.40 823.87 / 823.87 Output Total 775 / 775 1200 / 1200 Balance 1250 / 1250 4870.90 / 4908.40 -376.13 / -376.13 Lab / Micro Data 02/28/24 14:25 02/28/24 11:27 Labs: Laboratory Results - last 24 hr 02/28/24 11:27: WBC 3.5 L, RBC 3.90 L, Hgb 11.5 L, Hct 35.5 L, MCV 91.0 D, MCH 29.5, MCHC 32.4, RDW Std Deviation 48.3 H, RDW Coeff of Naty 14.4, Plt Count 89 L, MPV 11.3, Immature Gran % (Auto) 1.400 H, Neut % (Auto) 91.4 H, Lymph % (Auto) 4.8 L, [place] % (Auto) 0.8, Eos % (Auto) 0.8, Baso % (Auto) 0.8, Absolute Neuts (auto) 3.2, Absolute Lymphs (auto) 0.17 L, Nucleated RBC % 0, Differential Comment COMMENT, Platelet Estimate MOD DEC, Sodium Cancelled 02/28/24 11:27: Sodium 133 L, Potassium Cancelled 02/28/24 11:27: Potassium 3.2 L, Chloride Cancelled 02/28/24 11:27: Chloride 105, Carbon Dioxide Cancelled 02/28/24 11:27: Carbon Dioxide 17.0 L, Anion Gap Cancelled 02/28/24 11:27: Anion Gap 11, BUN Cancelled 02/28/24 11:27: BUN 13, Creatinine Cancelled 02/28/24 11:27: Creatinine 1.61 H, Estim Creat Clear Calc Cancelled 02/28/24 11:27: Estim Creat Clear Calc 39.60, Est GFR (MDRD) Af Amer Cancelled 02/28/24 11:27: Est GFR (MDRD) Af Amer 41 L, Est GFR (MDRD) Non-Af Cancelled 02/28/24 11:27: Est GFR (MDRD) Non-Af 34 L, BUN/Creatinine Ratio Cancelled 02/28/24 11:27: BUN/Creatinine Ratio 8.1 L, Glucose Cancelled 02/28/24 11:27: Glucose 140 H, Calcium Cancelled 02/28/24 11:27: Calcium 7.3 L, Magnesium 1.7, Total Bilirubin 2.80 H, AST 74 H, ALT 40, Alkaline Phosphatase 115, Total Creatine Kinase 205 H, Total Protein 5.0 L, Albumin 2.4 L, Globulin 2.6, Albumin/Globulin Ratio 0.9 02/28/24 11:56: PT 18.0 H, INR 1.5, APTT 33.3, Lactic Acid 5.0 H* 02/28/24 13:10: POC Glucose 115 H 02/28/24 14:15: Urine Color Red, Urine Clarity Turbid, Urine pH 7.0, Ur Specific [place] 1.010, Urine Protein 500 H, Urine Glucose (UA) Normal, Urine Ketones Negative, Urine Occult Blood 50 H, Urine Nitrite Negative, Urine Bilirubin Negative, Urine Urobilinogen Normal, Ur Leukocyte Esterase Negative, Urine RBC > 100 SEEN, Urine WBC 0-5 SEEN, Ur Squamous Epith Cells 0 SEEN, Urine Bacteria 0 SEEN, Urine Mucus 0 SEEN 02/28/24 14:25: WBC 8.7, RBC 3.24 L, Hgb 9.5 L, Hct 29.2 L, MCV 90.1, MCH 29.3, MCHC 32.5, RDW Std Deviation 48.0 H, RDW Coeff of Naty 14.6, Plt Count 61 L, MPV 11.6, Immature Gran % (Auto) 1.400 H, Neut % (Auto) 93.6 H, Lymph % (Auto) 2.9 L, [place] % (Auto) 1.7, Eos % (Auto) 0.1, Baso % (Auto) 0.3, Absolute Neuts (auto) 8.2 H, Absolute Lymphs (auto) 0.25 L, Nucleated RBC % 0, Differential Comment COMMENT, Platelet Estimate MOD 02/28/24 14:30: Blood Type A POSITIVE, Antibody Screen NEGATIVE 02/28/24 16:15: Lactic Acid 4.0 H* Micro: Microbiology 02/28/24 12:55 Nasal Secretion MRSA (PCR) - Final 02/28/24 12:55 Mucosa - Nasopharyngeal SARS-CoV-2, Influenza & RSV (PCR) - Final Radiography Diagnostic Testing: Radiology Impression Chest X-Ray 02/28/24 11:35 IMPRESSION: Cardiomegaly. The lungs are clear. Electronically Signed: Erick Ferreira MD at 12:19 EST Reading Location ID and State: [facility] / [place] , Service support , Chest X-Ray 02/28/24 13:50 IMPRESSION: Mild cardiomegaly. Vascular congestion and mild degree of CHF. Electronically Signed: Erick Ferreira MD at 14:22 EST ,
--- NOTE | 2024-02-29 07:25 | PCM.PN.INT ---
Assessment & Plan Assessment/Plan (1) Sepsis: PLAN: Plan RECOMMENDATIONS: 1. Continue empiric antimicrobials, pending finalized culture results. 2. Follow-up CT imaging of the abdomen, given ongoing pain complaints. 3. Continue Levophed to maintain mean arterial pressure at or above 65 mmHg. 4. Continue PPI therapy. 5. Continue to hold on pharmacologic DVT prophylaxis, given thrombocytopenia. IMPRESSIONS: 1. Septic shock The patient developed sepsis due to genitourinary source of infection with acute sepsis related organ dysfunction as evidenced by lactic acidemia, hyperbilirubinemia, thrombocytopenia and hypotension. The patient ultimately developed fluid refractory hypotension, consistent with septic shock and was initiated on vasopressor support to maintain hemodynamic stability. The patient was noted to have a large left renal calculi on CT imaging of the abdomen, for which she is status post cystoscopy with laser lithotripsy and stent placement. She will be maintained on empiric antimicrobials, pending culture results. In the interim, plan to continue Levophed to maintain a mean arterial pressure at or above 65 mmHg. Given the patient's ongoing abdominal pain complaints, will obtain follow-up CT. 2. Acute kidney injury Most likely prerenal in etiology in the setting of #1. The patient was aggressively volume resuscitated and ultimately placed on vasopressor support to maintain hemodynamic stability. Creatinine has increased over the last 24 hours, which I suspect is secondary to hypotension with possible ischemic ATN. However, she is currently making urine and has no active indication for renal replacement therapy. Therefore, we will continue to monitor clinically. 3. Morbid obesity/hypothyroidism/GERD Complicates care, management, recovery and prognosis. Continue home medications as indicated. TIME: 33 minutes of critical care time, independent of procedures, was spent addressing the patient's septic shock, acute kidney injury, review of all data and collaboration with care team. Subjective Subjective The patient was seen and examined at the bedside this morning. Events from the last 24 hours have been reviewed. The patient is currently afebrile and maintaining appropriate oxygen saturations on room air. She remains on Levophed at 25 mcg/min to maintain hemodynamic stability. The patient is currently documented to be overall net +5.7 L for the hospitalization. The bloody output from her Montes catheter is clearing. She does continue to report the ongoing presence of abdominal pain, which is most pronounced in the left lower quadrant. White blood cell count has increased to 42,000. Hemoglobin was noted to be 11.5 g/dL with a platelet count of 91,000. Creatinine has increased to 2.16 with a serum bicarbonate of 16 and phosphorus of 1.5. Objective Data Objective Data The patient's most recent lab work, culture data and imaging studies have all been personally reviewed. Blood and urine cultures are pending. Vital Signs: Vital Signs Temp Pulse Resp BP Pulse Ox O2 Del Method O2 Flow Rate 98.3 F 92 17 122/49 H 94 Room Air 3 02/29/24 07:00 02/29/24 07:00 02/29/24 07:00 02/29/24 07:00 02/29/24 07:00 02/29/24 07:00 02/29/24 00:00 Oxygen Flow Rate (L/min) 3 Oxygen Delivery Method Room Air Weight: 238 lb 15.697 oz Body Mass Index (BMI) 42.3 Intake & Output: Intake and Output for Last 24 Hours 02/27/24 02/28/24 02/29/24 23:59 23:59 23:59 Intake Total 1250 / 1250 5645.90 / 5683.40 823.87 / 823.87 Output Total 775 / 775 1200 / 1200 Balance 1250 / 1250 4870.90 / 4908.40 -376.13 / -376.13 Lab / Micro Data Attestation: I reviewed the patient's lab results. 02/29/24 03:10 02/29/24 03:10 Labs: Laboratory Results - last 24 hr 02/28/24 11:27: WBC 3.5 L, RBC 3.90 L, Hgb 11.5 L, Hct 35.5 L, MCV 91.0 D, MCH 29.5, MCHC 32.4, RDW Std Deviation 48.3 H, RDW Coeff of Naty 14.4, Plt Count 89 L, MPV 11.3, Immature Gran % (Auto) 1.400 H, Neut % (Auto) 91.4 H, Lymph % (Auto) 4.8 L, [place] % (Auto) 0.8, Eos % (Auto) 0.8, Baso % (Auto) 0.8, Absolute Neuts (auto) 3.2, Absolute Lymphs (auto) 0.17 L, Nucleated RBC % 0, Differential Comment COMMENT, Platelet Estimate MOD DEC, Sodium Cancelled 02/28/24 11:27: Sodium 133 L, Potassium Cancelled 02/28/24 11:27: Potassium 3.2 L, Chloride Cancelled 02/28/24 11:27: Chloride 105, Carbon Dioxide Cancelled 02/28/24 11:27: Carbon Dioxide 17.0 L, Anion Gap Cancelled 02/28/24 11:27: Anion Gap 11, BUN Cancelled 02/28/24 11:27: BUN 13, Creatinine Cancelled 02/28/24 11:27: Creatinine 1.61 H, Estim Creat Clear Calc Cancelled 02/28/24 11:27: Estim Creat Clear Calc 39.60, Est GFR (MDRD) Af Amer Cancelled 02/28/24 11:27: Est GFR (MDRD) Af Amer 41 L, Est GFR (MDRD) Non-Af Cancelled 02/28/24 11:27: Est GFR (MDRD) Non-Af 34 L, BUN/Creatinine Ratio Cancelled 02/28/24 11:27: BUN/Creatinine Ratio 8.1 L, Glucose Cancelled 02/28/24 11:27: Glucose 140 H, Calcium Cancelled 02/28/24 11:27: Calcium 7.3 L, Magnesium 1.7, Total Bilirubin 2.80 H, AST 74 H, ALT 40, Alkaline Phosphatase 115, Total Creatine Kinase 205 H, Total Protein 5.0 L, Albumin 2.4 L, Globulin 2.6, Albumin/Globulin Ratio 0.9 02/28/24 11:56: PT 18.0 H, INR 1.5, APTT 33.3, Lactic Acid 5.0 H* 02/28/24 13:10: POC Glucose 115 H 02/28/24 14:15: Urine Color Red, Urine Clarity Turbid, Urine pH 7.0, Ur Specific [place] 1.010, Urine Protein 500 H, Urine Glucose (UA) Normal, Urine Ketones Negative, Urine Occult Blood 50 H, Urine Nitrite Negative, Urine Bilirubin Negative, Urine Urobilinogen Normal, Ur Leukocyte Esterase Negative, Urine RBC > 100 SEEN, Urine WBC 0-5 SEEN, Ur Squamous Epith Cells 0 SEEN, Urine Bacteria 0 SEEN, Urine Mucus 0 SEEN 02/28/24 14:25: WBC 8.7, RBC 3.24 L, Hgb 9.5 L, Hct 29.2 L, MCV 90.1, MCH 29.3, MCHC 32.5, RDW Std Deviation 48.0 H, RDW Coeff of Naty 14.6, Plt Count 61 L, MPV 11.6, Immature Gran % (Auto) 1.400 H, Neut % (Auto) 93.6 H, Lymph % (Auto) 2.9 L, [place] % (Auto) 1.7, Eos % (Auto) 0.1, Baso % (Auto) 0.3, Absolute Neuts (auto) 8.2 H, Absolute Lymphs (auto) 0.25 L, Nucleated RBC % 0, Differential Comment COMMENT, Platelet Estimate MOD 02/28/24 14:30: Blood Type A POSITIVE, Antibody Screen NEGATIVE 02/28/24 16:15: Lactic Acid 4.0 H* Micro: Microbiology 02/28/24 12:55 Nasal Secretion MRSA (PCR) - Final 02/28/24 12:55 Mucosa - Nasopharyngeal SARS-CoV-2, Influenza & RSV (PCR) - Final Radiography Diagnostic Testing: Radiology Impression Chest X-Ray 02/28/24 11:35 IMPRESSION: Cardiomegaly. The lungs are clear. Electronically Signed: Erick Ferreira MD at 12:19 EST , Chest X-Ray 02/28/24 13:50 IMPRESSION: Mild cardiomegaly. Vascular congestion and mild degree of CHF. Electronically Signed: Erick Ferreira MD at 14:22 EST , Physical Exam Const alert, oriented x3 and no apparent distress General Appearance: cooperative and ill appearing HEENT normocephalic, head/scalp atraumatic and moist oral mucous membranes Eyes PERRL, EOMs intact bilaterally and conjunctivae normal Neck supple General: trachea midline and CVC in place Chest inspection of chest normal Resp normal respiratory effort Auscultation: Negative for rales, rhonchi or wheezes Cardio regular rate, regular rhythm, S1 normal heart sound and S2 normal heart sound GI soft to palpation GI Narrative: Tenderness to palpation elicited over left lower quadrant. No rebound, guarding or rigidity. Extremity no clubbing, cyanosis or edema Skin no rashes or lesions noted Neuro CN's II-XII intact bilaterally, moves all extremities and no focal motor deficits Psych cooperative and affect normal Charges/Coding Procedures Hospitalists Procedures: [id number] Critical Care 1st Hr
--- NOTE | 2024-02-29 07:28 | CT_ITS ---
STUDY: CT ABDOMEN AND PELVIS WITHOUT CONTRAST REASON FOR EXAM: Female, 63 years old. LEFT FLANK PAIN-LITHOTRIPSY AND STENT PLACEMENT YESTERDAY RADIATION DOSAGE (If Supplied By Facility): CTDIvol = ( 23.01 ) mGy, DLP = ( 1270.71 ) mGycm TECHNIQUE: Transaxial images were obtained from the dome of the diaphragm to the symphysis pubis without oral contrast, and without intravenous contrast. Sagittal and coronal images were reconstructed. Individualized dose optimization techniques were used for this CT. COMPARISON: Comparison is made with prior examination dated February 27, 2024. FINDINGS: New increased markings with areas of confluence at the lung bases bilaterally with minimal bilateral pleural effusion. This most likely represents atelectatic changes. The visualized portions of the heart are within normal limits. Normal liver. There are surgical clips in the gallbladder fossa consistent with a prior cholecystectomy. Normal spleen. Normal pancreas. Normal bilateral adrenal glands. Normal right kidney. Stable tiny nonobstructive calculus in the right kidney.left renal pelvis is fragmented. Residual calculus seen in the left renal pelvis as well as in the calyces. Mild degree of left hydronephrosis. A left-sided double-J stent catheter seen with the proximal tip in the left renal pelvis. There is evidence of left perinephric stranding most likely secondary to the lithotripsy. Normal visualized stomach. Normal small intestine. There are scattered colonic diverticula consistent with diverticulosis. The appendix is visualized and appears normal. Normal abdominal aorta. Normal inferior vena cava. Normal retroperitoneum. Normal urinary bladder. Normal abdominal wall. There are degenerative changes of the visualized lumbar spine. CT/Abdomen/Pelvis without Cont IMPRESSION: New atelectatic changes and small bilateral pleural effusions seen at the lung bases. Status post left lithotripsy with fragmentation of the previously seen calculus in the left renal pelvis with fragment seen in the pelvis as well as in the left calyces. Left perinephric stranding. Electronically Signed: Erick Ferreira MD at 9:24 EST ,
--- NOTE | 2024-02-29 07:29 | PCM.PN.HOSP ---
Reason for Visit Reason for Visit: Diagnoses Sepsis, unspecified organism (02/28/24) Calculus of kidney (02/28/24) Urinary tract infection, site not specified (02/28/24) Objective Data Objective Data Vital Signs: Vital Signs Temp Pulse Resp BP Pulse Ox O2 Del Method O2 Flow Rate 98.3 F 92 17 122/49 H 94 Room Air 3 02/29/24 07:00 02/29/24 07:00 02/29/24 07:00 02/29/24 07:00 02/29/24 07:00 02/29/24 07:00 02/29/24 00:00 Oxygen Flow Rate (L/min) 3 Oxygen Delivery Method Room Air Weight: 238 lb 15.697 oz Body Mass Index (BMI) 42.3 Intake & Output: Intake and Output for Last 24 Hours 02/27/24 02/28/24 02/29/24 23:59 23:59 23:59 Intake Total 1250 / 1250 5645.90 / 5683.40 823.87 / 823.87 Output Total 775 / 775 1200 / 1200 Balance 1250 / 1250 4870.90 / 4908.40 -376.13 / -376.13 Lab / Micro Data 02/29/24 03:10 02/29/24 03:10 Labs: Laboratory Results - last 24 hr 02/28/24 11:27: WBC 3.5 L, RBC 3.90 L, Hgb 11.5 L, Hct 35.5 L, MCV 91.0 D, MCH 29.5, MCHC 32.4, RDW Std Deviation 48.3 H, RDW Coeff of Naty 14.4, Plt Count 89 L, MPV 11.3, Immature Gran % (Auto) 1.400 H, Neut % (Auto) 91.4 H, Lymph % (Auto) 4.8 L, [place] % (Auto) 0.8, Eos % (Auto) 0.8, Baso % (Auto) 0.8, Absolute Neuts (auto) 3.2, Absolute Lymphs (auto) 0.17 L, Nucleated RBC % 0, Differential Comment COMMENT, Platelet Estimate MOD DEC, Sodium Cancelled 02/28/24 11:27: Sodium 133 L, Potassium Cancelled 02/28/24 11:27: Potassium 3.2 L, Chloride Cancelled 02/28/24 11:27: Chloride 105, Carbon Dioxide Cancelled 02/28/24 11:27: Carbon Dioxide 17.0 L, Anion Gap Cancelled 02/28/24 11:27: Anion Gap 11, BUN Cancelled 02/28/24 11:27: BUN 13, Creatinine Cancelled 02/28/24 11:27: Creatinine 1.61 H, Estim Creat Clear Calc Cancelled 02/28/24 11:27: Estim Creat Clear Calc 39.60, Est GFR (MDRD) Af Amer Cancelled 02/28/24 11:27: Est GFR (MDRD) Af Amer 41 L, Est GFR (MDRD) Non-Af Cancelled 02/28/24 11:27: Est GFR (MDRD) Non-Af 34 L, BUN/Creatinine Ratio Cancelled 02/28/24 11:27: BUN/Creatinine Ratio 8.1 L, Glucose Cancelled 02/28/24 11:27: Glucose 140 H, Calcium Cancelled 02/28/24 11:27: Calcium 7.3 L, Magnesium 1.7, Total Bilirubin 2.80 H, AST 74 H, ALT 40, Alkaline Phosphatase 115, Total Creatine Kinase 205 H, Total Protein 5.0 L, Albumin 2.4 L, Globulin 2.6, Albumin/Globulin Ratio 0.9 02/28/24 11:56: PT 18.0 H, INR 1.5, APTT 33.3, Lactic Acid 5.0 H* 02/28/24 13:10: POC Glucose 115 H 02/28/24 14:15: Urine Color Red, Urine Clarity Turbid, Urine pH 7.0, Ur Specific [place] 1.010, Urine Protein 500 H, Urine Glucose (UA) Normal, Urine Ketones Negative, Urine Occult Blood 50 H, Urine Nitrite Negative, Urine Bilirubin Negative, Urine Urobilinogen Normal, Ur Leukocyte Esterase Negative, Urine RBC > 100 SEEN, Urine WBC 0-5 SEEN, Ur Squamous Epith Cells 0 SEEN, Urine Bacteria 0 SEEN, Urine Mucus 0 SEEN 02/28/24 14:25: WBC 8.7, RBC 3.24 L, Hgb 9.5 L, Hct 29.2 L, MCV 90.1, MCH 29.3, MCHC 32.5, RDW Std Deviation 48.0 H, RDW Coeff of Naty 14.6, Plt Count 61 L, MPV 11.6, Immature Gran % (Auto) 1.400 H, Neut % (Auto) 93.6 H, Lymph % (Auto) 2.9 L, [place] % (Auto) 1.7, Eos % (Auto) 0.1, Baso % (Auto) 0.3, Absolute Neuts (auto) 8.2 H, Absolute Lymphs (auto) 0.25 L, Nucleated RBC % 0, Differential Comment COMMENT, Platelet Estimate MOD 02/28/24 14:30: Blood Type A POSITIVE, Antibody Screen NEGATIVE 02/28/24 16:15: Lactic Acid 4.0 H* Micro: Microbiology 02/28/24 12:55 Nasal Secretion MRSA (PCR) - Final 02/28/24 12:55 Mucosa - Nasopharyngeal SARS-CoV-2, Influenza & RSV (PCR) - Final Radiography Diagnostic Testing: Radiology Impression Chest X-Ray 02/28/24 11:35 IMPRESSION: Cardiomegaly. The lungs are clear. Electronically Signed: Erick Ferreira MD at 12:19 EST , Chest X-Ray 02/28/24 13:50 IMPRESSION: Mild cardiomegaly. Vascular congestion and mild degree of CHF. Electronically Signed: Erick Ferreira MD at 14:22 EST , Physical Exam Narrative Seen and examined Overnight events noted. Patient required IV central line yesterday and started on Levophed drip to maintain MAP. Urine was also reddish and bloody which is cleared in the morning today. Patient felt chills/fever is last evening. Tmax 100.[address] abdomen ordered for abdominal pain, still has a left lateral/lumbar area pain Physical exam: General: Oriented x3, Cooperative. Awake feels better than yesterday HEENT: Atraumatic, PERRLA, EOMI, Normocephalic Oral: Oral mucosa dry. No Gingival or Mucosal Lesions/ Ulcerations Neck: Supple, No JVD, Negative Carotid Bruits Chest wall/Lungs: Air entry diminished in bilateral lung bases. No crepitation/rhonchi Cardiovascular: Sinus rhythm normal S1, Normal S2, No M/G/R. On IV vasopressor. Abdomen: Mild tenderness present over left lumbar area. Bowel Sounds Present, Soft, : Left renal angle tenderness. Urinary retention. Dysuria/UTI Extremities: No edema, Capillary Refill Less than 3 Seconds Skin: No rashes, No breakdown Musculoskeletal: Degenerative arthritis but no Tenderness to Palpation of Joints or Extremities Neurological: Cranial nerves II-XII grossly intact, DTR 2+/4. No acute focal neurological deficit. Psych/Mental Status: Flat affect. Assessment & Plan Assessment/Plan (1) Sepsis: (2) Left renal stone: (3) UTI (urinary tract infection): PLAN: Plan This 63-year-old female was transferred from [facility] to ICU for sepsis due to UTI 1. Sepsis shock secondary to UTI/genitourinary source from large left renal pelvis stone: Patient is being admitted in ICU from [facility] with sepsis with clinical indicators of tachycardia, hypotension, leukopenia due to large left renal pelvis stone after procedure with acute sepsis-related organ dysfunction as evidenced by hypotension, lactic acidosis, thrombocytopenia, hyperbilirubinemia and ORIANA. Sepsis protocol with 30 mL/kg isotonic fluid bolus, broad-spectrum antibiotic IV Zosyn with labs and cultures ordered. [employer] consulted as per protocol. 02/28: Patient on IV norepinephrine is started yesterday afternoon for fluid nonresponsive hypotension. CT abdomen pelvis ordered for left flank pain. Hematuria, urine is clearing up. Acute anemia due to blood loss/hematuria, leukocytosis, 41.8K, thrombocytopenia due to septic shock: Thrombocytopenia improving: Baseline hemoglobin 12.9 K which dropped to 9.5 g%. Repeat hemoglobin 9.5Gram percent. Did not require PRBC transfusion 2. Bilateral large left greater than right nonobstructing stone, 1.5 cm in left renal pelvis with no significant hydronephrosis: Patient had cystoscopy, balloon dilatation of left ureter, laser lithotripsy of stone and left stent placement today on 02/28/2024. Blood culture and urine culture pending. IV ceftriaxone changed to Zosyn 02/28 cultures are pending 3. ORIANA most likely due to obstructive stone and sepsis: Patient admitting creatinine 1.24 jumped to 1.61. BUN/creatinine ratio 8.1 suggestive of high risk going to ATN. 02/28: Mild hyponatremia, sodium 133K, BUN/creatinine 19/2.16, hypophosphatemia, phosphorus 1.5: Creatinine went from 1.24-2.46. Electrolytes on replacement 4. Hypothyroidism: Patient on levothyroxine regimen. 5. Other comorbidities include GERD, history of kidney stone in the past: On PPI. 6. DVT prophylaxis, high risk: Lovenox 40 mg subcu daily. Microbiology Past 72 Hours 02/28/24 12:55 Nasal Secretion MRSA (PCR) - Final 02/28/24 12:55 Mucosa - Nasopharyngeal SARS-CoV-2, Influenza & RSV (PCR) - Final Laboratory Results 02/28/24 11:27: Calcium 7.3 L, Magnesium 1.7, Total Bilirubin 2.80 H, AST 74 H, ALT 40, Alkaline Phosphatase 115, Total Creatine Kinase 205 H, Total Protein 5.0 L, Albumin 2.4 L, Globulin 2.6, Albumin/Globulin Ratio 0.9 02/28/24 11:56: PT 18.0 H, INR 1.5, APTT 33.3, Lactic Acid 5.0 H* 02/28/24 13:10: POC Glucose 115 H 02/28/24 14:15: Urine Color Red, Urine Clarity Turbid, Urine pH 7.0, Ur Specific [place] 1.010, Urine Protein 500 H, Urine Glucose (UA) Normal, Urine Ketones Negative, Urine Occult Blood 50 H, Urine Nitrite Negative, Urine Bilirubin Negative, Urine Urobilinogen Normal, Ur Leukocyte Esterase Negative, Urine RBC > 100 SEEN, Urine WBC 0-5 SEEN, Ur Squamous Epith Cells 0 SEEN, Urine Bacteria 0 SEEN, Urine Mucus 0 SEEN 02/28/24 14:25: WBC 8.7, RBC 3.24 L, Hgb 9.5 L, Hct 29.2 L, MCV 90.1, MCH 29.3, MCHC 32.5, RDW Std Deviation 48.0 H, RDW Coeff of Naty 14.6, Plt Count 61 L, MPV 11.6, Immature Gran % (Auto) 1.400 H, Neut % (Auto) 93.6 H, Lymph % (Auto) 2.9 L, [place] % (Auto) 1.7, Eos % (Auto) 0.1, Baso % (Auto) 0.3, Absolute Neuts (auto) 8.2 H, Absolute Lymphs (auto) 0.25 L, Nucleated RBC % 0, Differential Comment COMMENT, Platelet Estimate MOD DEC 02/28/24 14:30: Blood Type A POSITIVE, Antibody Screen NEGATIVE 02/28/24 16:15: Lactic Acid 4.0 H* 02/29/24 03:10: WBC 41.8 H*, RBC 3.91 L, Hgb 11.5 L, Hct 35.0 L, MCV 89.5, MCH 29.4, MCHC 32.9, RDW Std Deviation 48.6 H, RDW Coeff of Naty 14.9 H, Plt Count 91 L, MPV 11.4, Neut % (Auto) Not Reportable, Absolute Neuts (auto) 31.8 H, Absolute Lymphs (auto) 2.50, Total Counted 100, Neutrophils % (Manual) 76 H, Band Neutrophils % 1, Lymphocytes % (Manual) 6 L, Monocytes % (Manual) 4, Eosinophils % (Manual) 1, Metamyelocytes % 12 H, Diff Path Review June, Platelet Estimate SLT JAN, RBC Morphology NORM C+C, Sodium 133 L, Potassium 4.6, Chloride 108 H, Carbon Dioxide 16.0 L, Anion Gap 9, BUN 19 H, Creatinine 2.16 H, Estim Creat Clear Calc 29.52, Est GFR (MDRD) Af Amer 29 L, Est GFR (MDRD) Non-Af 24 L, BUN/Creatinine Ratio 8.8 L, Glucose 222 H, Calcium 7.5 L, Phosphorus 1.5 L, Magnesium 1.9, Total Bilirubin Pending, Direct Bilirubin Pending, AST Pending, ALT Pending, Alkaline Phosphatase Pending, Total Protein Pending, Albumin Pending Clinical Impression(s) from Imaging Studies Abdomen/Pelvis CT 02/27/24 15:52 IMPRESSION: Left greater than right nonobstructive uroliths as above Electronically Signed: Eze Bryant MD at 16:32 EST , Chest X-Ray 02/28/24 11:35 IMPRESSION: Cardiomegaly. The lungs are clear. Electronically Signed: Erick Ferreira MD at 12:19 EST , Laboratory Results 02/27/24 15:04: WBC 6.8, RBC 4.56, Hgb 12.9, Hct 39.3, MCV 86.2, MCH 28.3, MCHC 32.8, RDW Std Deviation 42.9, RDW Coeff of Naty 13.7, Plt Count 191, MPV 10.5, Immature Gran % (Auto) 0.400, Neut % (Auto) 84.7 H, Lymph % (Auto) 6.7 L, [place] % (Auto) 7.8, Eos % (Auto) 0.3, Baso % (Auto) 0.1, Absolute Neuts (auto) 5.7, Absolute Lymphs (auto) 0.45 L, Nucleated RBC % 0, Sodium 130 L, Potassium 3.3 L, Chloride 102, Carbon Dioxide 21.0, Anion Gap 7, BUN 11, Creatinine 1.24 H, Estim Creat Clear Calc 50.32, Est GFR (MDRD) Af Amer 56 L, Est GFR (MDRD) Non-Af 46 L, BUN/Creatinine Ratio 8.9 L, Glucose 133 H, Calcium 8.6, Total Bilirubin 0.50, AST 39 H, ALT 39, Alkaline Phosphatase 89, Total Protein 7.3, Albumin 3.4, Globulin 3.9, Albumin/Globulin Ratio 0.9, TSH 1.020, Urine Color Yellow, Urine Clarity Sl. Cloudy, Urine pH 6.0, Ur Specific [place] 1.015, Urine Protein 30 H, Urine Glucose (UA) Normal, Urine Ketones Negative, Urine Occult Blood 250 H, Urine Nitrite Negative, Urine Bilirubin 1 H, Urine Urobilinogen 1 H, Ur Leukocyte Esterase 100 H, Urine RBC 0-5 SEEN, Urine WBC 0-5 SEEN, Ur Squamous Epith Cells 0-5 SEEN, Ur Transition Epith Cell 0-5 SEEN, Urine Bacteria 1+, Urine Mucus 1+, Urine Yeast 1+ 02/28/24 11:27: WBC 3.5 L, RBC 3.90 L, Hgb 11.5 L, Hct 35.5 L, MCV 91.0 D, MCH 29.5, MCHC 32.4, RDW Std Deviation 48.3 H, RDW Coeff of Naty 14.4, Plt Count 89 L, MPV 11.3, Immature Gran % (Auto) 1.400 H, Neut % (Auto) 91.4 H, Lymph % (Auto) 4.8 L, [place] % (Auto) 0.8, Eos % (Auto) 0.8, Baso % (Auto) 0.8, Absolute Neuts (auto) 3.2, Absolute Lymphs (auto) 0.17 L, Nucleated RBC % 0, Differential Comment COMMENT, Platelet Estimate MOD DEC, Sodium Cancelled 02/28/24 11:27: Sodium 133 L, Potassium Cancelled 02/28/24 11:27: Potassium 3.2 L, Chloride Cancelled 02/28/24 11:27: Chloride 105, Carbon Dioxide Cancelled 02/28/24 11:27: Carbon Dioxide 17.0 L, Anion Gap Cancelled 02/28/24 11:27: Anion Gap 11, BUN Cancelled 02/28/24 11:27: BUN 13, Creatinine Cancelled 02/28/24 11:27: Creatinine 1.61 H, Estim Creat Clear Calc Cancelled 02/28/24 11:27: Estim Creat Clear Calc 39.60, Est GFR (MDRD) Af Amer Cancelled 02/28/24 11:27: Est GFR (MDRD) Af Amer 41 L, Est GFR (MDRD) Non-Af Cancelled 02/28/24 11:27: Est GFR (MDRD) Non-Af 34 L, BUN/Creatinine Ratio Cancelled 02/28/24 11:27: BUN/Creatinine Ratio 8.1 L, Glucose Cancelled 02/28/24 11:27: Glucose 140 H, Calcium Cancelled 02/28/24 11:27: Calcium 7.3 L, Magnesium 1.7, Total Bilirubin 2.80 H, AST 74 H, ALT 40, Alkaline Phosphatase 115, Total Creatine Kinase 205 H, Total Protein 5.0 L, Albumin 2.4 L, Globulin 2.6, Albumin/Globulin Ratio 0.9 02/28/24 11:56: PT 18.0 H, INR 1.5, APTT 33.3, Lactic Acid 5.0 H* 02/28/24 13:10: POC Glucose 115 H Charges/Coding Visit Charges Inpatient E&M: 20990 Subs Hosp L3
[2024-02-29] MEDS: Norepinephrine 8 MG in 0.9% Normal Saline (250mL Bag) 242 ML 46.9 MG CONT INF (07:45)
[2024-02-29 09:04] LABS: AST(SGOT) 85 U/L (15-37); Alanine Aminotransfer ALT/SGPT 58 U/L (13-56); Albumin, Serum 2.4 g/dL (3.2-5.0); Alkaline Phosphatase 100 U/L (45-117); Bilirubin, Direct 1.92 mg/dL (0.00-0.30); Protein, Total 5.4 g/dL (6.4-8.2)
[2024-02-29] MEDS: Pantoprazole Sodium 40 MG Tablet PO (09:27)
[2024-02-29] MEDS: Senna/Docusate Sodium 1 Tablet 2 TABLET PO ×2 (09:27→20:26)
[2024-02-29] MEDS: Ensure Plus High Protein 120 ML LIQUID PO ×2 (09:27→17:57)
[2024-02-29] MEDS: Acetaminophen 325 MG Tablet 650 MG PO ×2 (10:21→20:26)
--- NOTE | 2024-02-29 11:20 | CASEMGMT ---
RN CM [employer] AR[employer] REPAIRER VISHAL?to room to meet with patient for initial transition planning/care coordination assessment. RN VISHAL?introduced self and role at [facility]. Pt voices understanding and consents to assessment?at this time. Pt resting in bed in no distress at this time. Pt is A/O at this time and answers all questions appropriately. Care providers, pharmacy, and demographics verified/updated at this time. Strata:?1 PCP: Dr Melva Han in [place] Specialists: none per pt. Preferred Pharmacy: [facility] [employer]. Otherwise, goes to [facility] in [place] Insurance: [employer] Prescription Benefit: Pt states, I think so. LNOK: , Marcus Living Arrangements: Lives w/Marcus in mobile home w/1 step to enter. Independent w/ADL's. does most of the home mgt tasks and pt states she tries to help him some. Transportation:?Pt does not drive. provides transportation. DME: Denies using any DME and denies needs. HHC/SNF: No hx of either. Pt wishes to return home and states has no concerns with going home at time of discharge. PT/OT evals pending. CM?to follow for any discharge planning/needs. When asked pt if she has any further concerns/needs, she became tearful, stating she has concerns about finances and the hospital bill. She states her works, but just as of today, is off of work d/t there are issues @ his job freezing up and she is not sure how long he will be off of work. JUAN, Nancy, made aware. Advised pt to ask for CM?if any further questions/concerns/needs arise. Voices understanding. PLAN: Home w/spousal support and discharge plans in place. PT/OT evals pending. Follow. Yasemin EARLY RN, CM
[2024-02-29 11:51] LABS: Pathologist Review Reviewed
[2024-02-29] MEDS: TITRATION PARAMETER CHANGE 1 EACH IV (17:58)
[2024-02-29] MEDS: Norepinephrine 8 MG in 0.9% Normal Saline (250mL Bag) 242 ML 33.8 MG CONT INF (20:26)
[2024-03-01] VITALS (49 sets, daily range): BP systolic 93–131; BP diastolic 42–91; PULSE 67–99; RESP 14–77; TEMP 37.7–38.2; O2SAT 90–98; BMI 42.5
[2024-03-01] MEDS: oxyCODONE 5 MG Tablet PO ×2 (00:51→20:04)
[2024-03-01] MEDS: Ondansetron 4 MG/2 ML Vial IV ×3 (00:55→20:04)
[2024-03-01] MEDS: Norepinephrine 8 MG in 0.9% Normal Saline (250mL Bag) 242 ML 33.8 MG CONT INF ×2 (03:50→11:17)
[2024-03-01] MEDS: 0.9% Saline Lock 10 ML Syringe IV (04:35)
[2024-03-01] MEDS: Piperacil/Tazobactam 3.375 GM in 0.9% Normal Saline (50mL MB+) 50 ML IV ×3 (04:36→20:52)
[2024-03-01 04:51] LABS: Hematocrit 33.1 % (37-47); Hemoglobin 10.8 g/dL (12.0-15.0); Mean Corp Hgb Conc 32.6 g/dL (32-36); Mean Corpuscular Hgb 29.1 pg (27.0-32.0); Mean Corpuscular Volume 89.2 fL (81-99); Mean Platelet Vol. 12.7 fl (6.2-12.0); POSITIVE COUNT YES; POSITIVE DIFFERENTIAL YES; POSITIVE MORPHOLOGY YES; Platelet Count 71 K/mm3 (150-450); RBC Distribution Width CV 15.6 % (11.6-14.6); RBC Distribution Width SD 51.7 fl (35.1-43.9); Red Blood Count 3.71 M/mm3 (4.2-5.4); White Blood Count 24.9 K/mm3 (4.4-11.0)
[2024-03-01 05:02] LABS: Anion Gap 8 (5-15); BUN 22 mg/dL (7-18); BUN/Creat Ratio 11.3 RATIO (10-20); Calcium,Total 8.1 mg/dL (8.5-10.1); Chloride 110 mmol/L (98-107); Creatinine, Serum 1.94 mg/dL (0.55-1.02); Differential Indicated MANUAL DIFF; EST Glomerular Filtration Rate 28 mL/min (>60); Est Glom Filt Rate - Afr Amer 33 mL/min (>60); Estimated Creatinine Clearance 34.07 ml/min; Glucose 124 mg/dL (74-106); Potassium 3.9 mmol/L (3.5-5.1); Sodium Level 138 mmol/L (136-145)
--- NOTE | 2024-03-01 06:53 | PN.URO_ITS ---
Subjective Subjective 63-year-old female she continues to be in the ICU but she is stabilized at this point, blood pressure is stable, she had a CAT scan done yesterday because she was complaining a lot of abdominal pain which is fine it demonstrated that there was a lot of fragments from the lithotripsy in the renal pelvis but this is normal stent is in place in good position there is no hydronephrosis or obstruction. No intervention is necessary from my part. May discontinue give her antibiotics surprisingly urine culture looks like it came back negative. White blood count is coming down creatinine is stable. Objective Data Objective Data Vital Signs: Vital Signs Temp Pulse Resp BP Pulse Ox O2 Del Method O2 Flow Rate 99.8 F H 83 15 107/53 L 96 Nasal Cannula 2 03/01/24 04:00 03/01/24 06:00 03/01/24 06:00 03/01/24 06:00 03/01/24 06:00 03/01/24 06:00 03/01/24 06:00 Oxygen Flow Rate (L/min) 2 Oxygen Delivery Method Nasal Cannula Weight: 109 kg Body Mass Index (BMI) 42.5 Intake & Output: Intake and Output for Last 24 Hours 02/28/24 02/29/24 03/01/24 23:59 23:59 23:59 Intake Total 5645.90 / 5683.40 1776.32 / 1810.12 286.48 / 286.48 Output Total 775 / 775 3210 / 3210 250 / 250 Balance 4870.90 / 4908.40 -1433.68 / -1399.88 36.48 / 36.48 Lab / Micro Data 03/01/24 04:30 03/01/24 04:30 Labs: Laboratory Results - last 24 hr 02/29/24 03:10: WBC 41.8 H*, RBC 3.91 L, Hgb 11.5 L, Hct 35.0 L, MCV 89.5, MCH 29.4, MCHC 32.9, RDW Std Deviation 48.6 H, RDW Coeff of Naty 14.9 H, Plt Count 91 L, MPV 11.4, Neut % (Auto) Not Reportable, Absolute Neuts (auto) 31.8 H, Absolute Lymphs (auto) 2.50, Total Counted 100, Neutrophils % (Manual) 76 H, Band Neutrophils % 1, Lymphocytes % (Manual) 6 L, Monocytes % (Manual) 4, Eosinophils % (Manual) 1, Metamyelocytes % 12 H, Diff Path Review Reviewed, Platelet Estimate SLT DEC, RBC Morphology NORM C+C, Sodium 133 L, Potassium 4.6, Chloride 108 H, Carbon Dioxide 16.0 L, Anion Gap 9, BUN 19 H, Creatinine 2.16 H, Estim Creat Clear Calc 29.52, Est GFR (MDRD) Af Amer 29 L, Est GFR (MDRD) Non-Af 24 L, BUN/Creatinine Ratio 8.8 L, Glucose 222 H, Calcium 7.5 L, Phosphorus 1.5 L , Magnesium 1.9, Total Bilirubin 2.40 H, Direct Bilirubin 1.92 H, AST 85 H, ALT 58 H, Alkaline Phosphatase 100, Total Protein 5.4 L, Albumin 2.4 L, Globulin 3.0 03/01/24 04:30: WBC 24.9 H, RBC 3.71 L, Hgb 10.8 L, Hct 33.1 L, MCV 89.2, MCH 29.1, MCHC 32.6, RDW Std Deviation 51.7 H, RDW Coeff of Naty 15.6 H, Plt Count 71 L, MPV 12.7 H, Neut % (Auto) Not Reportable, Sodium 138, Potassium 3.9, Chloride 110 H, Carbon Dioxide 20.0 L, Anion Gap 8, BUN 22 H, Creatinine 1.94 H, Estim Creat Clear Calc 34.07, Est GFR (MDRD) Af Amer 33 L, Est GFR (MDRD) Non-Af 28 L, BUN/Creatinine Ratio 11.3, Glucose 124 H, Calcium 8.1 L Micro: Microbiology 02/28/24 14:15 Urine Catheter - Montes Urine Culture - Preliminary Culture exhibits no growth. 02/28/24 12:55 Nasal Secretion MRSA (PCR) - Final 02/28/24 12:55 Mucosa - Nasopharyngeal SARS-CoV-2, Influenza & RSV (PCR) - Final Radiography Diagnostic Testing: Radiology Impression Abdomen/Pelvis CT 02/29/24 07:28 IMPRESSION: New atelectatic changes and small bilateral pleural effusions seen at the lung bases. Status post left lithotripsy with fragmentation of the previously seen calculus in the left renal pelvis with fragment seen in the pelvis as well as in the left calyces. Left perinephric stranding. Electronically Signed: Erick Ferreira MD at 9:24 EST ,
[2024-03-01 07:39] LABS: Eosinophil 2 % (0-5); Lymphocyte 7 % (19-41); Monocyte 6 % (0-10); Neutrophil-Band 5 % (0-5); Neutrophil-Segmented 80 % (47-70); Total Cells Counted 100 (MANUAL DIFF)
[2024-03-01 07:40] LABS: Platelet Estimate MOD DEC (ADEQ); Red Cell Morphology NORM C+C NORMAL (NORM C&C)
[2024-03-01 07:42] LABS: Absolute Neutrophil Count 19.9 X10^3/uL (2.0-7.7)
--- NOTE | 2024-03-01 08:00 | PN.CC_ITS ---
Assessment & Plan Assessment/Plan (1) Sepsis: PLAN: Plan RECOMMENDATIONS: 1. Continue empiric antimicrobials, pending finalized culture results. 2. Continue Levophed to maintain mean arterial pressure at or above 65 mmHg. 3. Start scheduled midodrine today. 4. Continue PPI therapy. 5. Continue to hold on pharmacologic DVT prophylaxis, given thrombocytopenia. 6. Encourage incentive spirometer use and mobilize patient as tolerated. IMPRESSIONS: 1. Septic shock The patient developed sepsis due to genitourinary source of infection with acute sepsis related organ dysfunction as evidenced by lactic acidemia, hyperbilirubinemia, thrombocytopenia and hypotension. The patient ultimately developed fluid refractory hypotension, consistent with septic shock and was initiated on vasopressor support to maintain hemodynamic stability. The patient was noted to have a large left renal calculi on CT imaging of the abdomen, for which she is status post cystoscopy with laser lithotripsy and stent placement. She will be maintained on empiric antimicrobials, pending culture results. In the interim, plan to continue Levophed to maintain a mean arterial pressure at or above 65 mmHg. Scheduled midodrine will also be initiated today. 2. Acute kidney injury Improving. Most likely prerenal in etiology in the setting of #1. The patient was aggressively volume resuscitated and ultimately placed on vasopressor support to maintain hemodynamic stability. Continue to monitor urine output for now. No current indication for renal replacement therapy. 3. Morbid obesity/hypothyroidism/GERD Complicates care, management, recovery and prognosis. Continue home medications as indicated. TIME: 32 minutes of critical care time, independent of procedures, was spent addressing the patient's septic shock, acute kidney injury, review of all data and collaboration with care team. Subjective Subjective The patient was seen and examined at the bedside this morning. Events from the last 24 hours have been reviewed. The patient currently has a low-grade fever and remains on 2 L/min via nasal cannula. She continues to require Levophed at 18 mcg/min to maintain hemodynamic stability. White blood cell count has improved to 25,000. Hemoglobin is relatively stable at 10.8 g/dL with a platelet count of 71,000. Creatinine is improved at 1.94. Overall, the patient reported interval improvement in her abdominal discomfort since yesterday. Objective Data Objective Data The patient's most recent lab work, culture data and imaging studies have all been personally reviewed. Blood and urine cultures are pending. Vital Signs: Vital Signs Temp Pulse Resp BP Pulse Ox O2 Del Method O2 Flow Rate 99.8 F H 88 15 96/56 L 96 Nasal Cannula 2 03/01/24 04:00 03/01/24 07:00 03/01/24 07:00 03/01/24 07:00 03/01/24 07:00 03/01/24 07:00 03/01/24 07:00 Oxygen Flow Rate (L/min) 2 Oxygen Delivery Method Nasal Cannula Weight: 240 lb 4.862 oz Body Mass Index (BMI) 42.5 Intake & Output: Intake and Output for Last 24 Hours 02/28/24 02/29/24 03/01/24 23:59 23:59 23:59 Intake Total 5645.90 / 5683.40 1776.32 / 1810.12 320.28 / 320.28 Output Total 775 / 775 3210 / 3210 250 / 250 Balance 4870.90 / 4908.40 -1433.68 / -1399.88 70.28 / 70.28 Lab / Micro Data Attestation: I reviewed the patient's lab results. 03/01/24 04:30 03/01/24 04:30 Labs: Laboratory Results - last 24 hr 02/29/24 03:10: Diff Path Review Reviewed, Total Bilirubin 2.40 H, Direct Bilirubin 1.92 H, AST 85 H, ALT 58 H, Alkaline Phosphatase 100, Total Protein 5.4 L, Albumin 2.4 L, Globulin 3.0 03/01/24 04:30: WBC 24.9 H, RBC 3.71 L, Hgb 10.8 L, Hct 33.1 L, MCV 89.2, MCH 29.1, MCHC 32.6, RDW Std Deviation 51.7 H, RDW Coeff of Naty 15.6 H, Plt Count 71 L, MPV 12.7 H, Neut % (Auto) Not Reportable, Absolute Neuts (auto) 19.9 H, Absolute Lymphs (auto) 1.70, Total Counted 100, Neutrophils % (Manual) 80 H, Band Neutrophils % 5, Lymphocytes % (Manual) 7 L, Monocytes % (Manual) 6, Eosinophils % (Manual) 2, Platelet Estimate MOD DEC, RBC Morphology NORM C+C, Sodium 138, Potassium 3.9, Chloride 110 H, Carbon Dioxide 20.0 L, Anion Gap 8, B UN 22 H, Creatinine 1.94 H, Estim Creat Clear Calc 34.07, Est GFR (MDRD) Af Amer 33 L, Est GFR (MDRD) Non-Af 28 L, BUN/Creatinine Ratio 11.3, Glucose 124 H, C alcium 8.1 L Micro: Microbiology 02/28/24 14:15 Urine Catheter - Montes Urine Culture - Preliminary Culture exhibits no growth. 02/28/24 12:55 Nasal Secretion MRSA (PCR) - Final 02/28/24 12:55 Mucosa - Nasopharyngeal SARS-CoV-2, Influenza & RSV (PCR) - Final Radiography Diagnostic Testing: Radiology Impression Abdomen/Pelvis CT 02/29/24 07:28 IMPRESSION: New atelectatic changes and small bilateral pleural effusions seen at the lung bases. Status post left lithotripsy with fragmentation of the previously seen calculus in the left renal pelvis with fragment seen in the pelvis as well as in the left calyces. Left perinephric stranding. Electronically Signed: Erick Ferreira MD at 9:24 EST , Physical Exam Const alert, oriented x3 and no apparent distress Constitutional Narrative: Resting comfortably in bed. General Appearance: cooperative HEENT normocephalic, head/scalp atraumatic and moist oral mucous membranes Eyes PERRL, EOMs intact bilaterally and conjunctivae normal Neck supple General: trachea midline and CVC in place Chest inspection of chest normal Resp normal respiratory effort Auscultation: Negative for rales, rhonchi or wheezes Cardio regular rate, regular rhythm, S1 normal heart sound and S2 normal heart sound GI soft to palpation Auscultation: normoactive bowel sounds Extremity no clubbing, cyanosis or edema Skin no rashes or lesions noted Neuro CN's II-XII intact bilaterally, moves all extremities and no focal motor deficits Psych cooperative and affect normal Charges/Coding Procedures Hospitalists Procedures: 06598 Critical Care 1st Hr
[2024-03-01] MEDS: Ensure Plus High Protein 120 ML LIQUID PO ×3 (08:19→17:26)
[2024-03-01] MEDS: Pantoprazole Sodium 40 MG Tablet PO (08:19)
[2024-03-01] MEDS: Senna/Docusate Sodium 1 Tablet 2 TABLET PO (08:19)
[2024-03-01] MEDS: Midodrine HCl 5 MG Tablet 10 MG PO ×3 (09:50→17:26)
--- NOTE | 2024-03-01 10:21 | CASEMGMT ---
Social Work- SW met with pt to provide Francesca Md resources. SW introduced self and role; pt agreeable to meet until nurse came to put pt back in bed due to pt feeling dizzy. Pt has general/vague financial concerns. Pt spouse is out of work for what sounds like a temporary time. Pt did not cite any specific concerns. Pt quickly looked over information and reports that she will look over materials and seek out SW with any questions. SW remains available to follow for any discharge planning needs. JESSICA Easley
[2024-03-01] MEDS: Acetaminophen 325 MG Tablet 650 MG PO (17:28)
--- NOTE | 2024-03-01 18:24 | NURSING ---
pt placed on BSC at 1645 prior to blood pressure being taken. pt remained on BSC until 1710 blood pressure taken upon pt return to the bed
[2024-03-01] MEDS: Norepinephrine 8 MG in 0.9% Normal Saline (250mL Bag) 242 ML 22.5 MG CONT INF (20:52)
[2024-03-01] MEDS: TITRATION PARAMETER CHANGE 1 EACH IV (23:25)
[2024-03-02] VITALS (29 sets, daily range): BP systolic 95–126; BP diastolic 37–90; PULSE 8–88; RESP 14–20; TEMP 36.6–37.7; O2SAT 91–98; BMI 42.6
[2024-03-02] MEDS: 0.9% Saline Lock 10 ML Syringe IV (05:03)
[2024-03-02] MEDS: Piperacil/Tazobactam 3.375 GM in 0.9% Normal Saline (50mL MB+) 50 ML IV ×3 (05:05→20:39)
[2024-03-02 05:16] LABS: Absolute Lymphocyte Count 1.68 X10^3/uL (0.83-4.51); Absolute Neutrophil Count 11.7 X10^3/uL (2.0-7.7); Basophil# 0.08 X10^3/uL; Basophil% 0.5 % (0-1); Eosinophil# 0.23 X10^3/uL; Eosinophils% 1.6 % (0-5); Hematocrit 30.1 % (37-47); Hemoglobin 9.6 g/dL (12.0-15.0); Lymphocyte # 1.68 X10^3/ul (0.83-4.51); Lymphocyte % 11.4 % (19-41); Mean Corp Hgb Conc 31.9 g/dL (32-36); Mean Corpuscular Hgb 28.7 pg (27.0-32.0); Mean Corpuscular Volume 90.1 fL (81-99); Monocyte# 0.89 X10^3/uL; Monocyte% 6.1 % (0-10); NRBC Flagged by Analyzer 0.1 % (0-5); Neutrophil # 11.71 X10^3/uL (2.7-7.7); Neutrophil % 79.6 % (47-70); POSITIVE COUNT YES; Platelet Count 81 K/mm3 (150-450); RBC Distribution Width CV 16.2 % (11.6-14.6); RBC Distribution Width SD 53.4 fl (35.1-43.9); Red Blood Count 3.34 M/mm3 (4.2-5.4); White Blood Count 14.7 K/mm3 (4.4-11.0)
[2024-03-02 05:40] LABS: Anion Gap 5 (5-15); BUN 24 mg/dL (7-18); Calcium,Total 8.1 mg/dL (8.5-10.1); Chloride 111 mmol/L (98-107); Creatinine, Serum 1.72 mg/dL (0.55-1.02); EST Glomerular Filtration Rate 32 mL/min (>60); Est Glom Filt Rate - Afr Amer 38 mL/min (>60); Estimated Creatinine Clearance 38.42 ml/min; Glucose 95 mg/dL (74-106); Potassium 4.2 mmol/L (3.5-5.1); Sodium Level 139 mmol/L (136-145)
--- NOTE | 2024-03-02 08:00 | PCM.PN.INT ---
Assessment & Plan Assessment/Plan (1) Sepsis: PLAN: Plan RECOMMENDATIONS: 1. Continue antibiotics to complete 7 days of therapy. 2. Continue PPI therapy. 3. Continue to hold on pharmacologic DVT prophylaxis, given thrombocytopenia. 4. Encourage incentive spirometer use and mobilize patient as tolerated. 5. If the patient remains hemodynamically stable off of vasopressors this afternoon, she can be transferred out of the intensive care unit. IMPRESSIONS: 1. Septic shock The patient developed sepsis due to genitourinary source of infection with acute sepsis related organ dysfunction as evidenced by lactic acidemia, hyperbilirubinemia, thrombocytopenia and hypotension. The patient ultimately developed fluid refractory hypotension, consistent with septic shock and was initiated on vasopressor support to maintain hemodynamic stability. The patient was noted to have a large left renal calculi on CT imaging of the abdomen, for which she is status post cystoscopy with laser lithotripsy and stent placement. The patient has been maintained on antimicrobial therapy. Ultimately, she was able to be weaned from vasopressor support. Although her cultures have been negative, I would recommend that we continue antibiotics to complete 7 days of therapy. 2. Acute kidney injury Improving. Most likely prerenal in etiology in the setting of #1. The patient was aggressively volume resuscitated and ultimately placed on vasopressor support to maintain hemodynamic stability. Continue to monitor urine output for now. No current indication for renal replacement therapy. 3. Morbid obesity/hypothyroidism/GERD Complicates care, management, recovery and prognosis. Continue home medications as indicated. This note was generated with [employer] dictation software. It may contain incorrect words, spelling, and punctuation that were not noted in checking the note before signing. Subjective Subjective The patient was seen and examined at the bedside this morning. Events from the last 24 hours have been reviewed. The patient continues to have a low-grade fever, but was able to be weaned off of Levophed early this morning. She is currently documented to be overall net +5 L for the hospitalization. White blood cell count has improved to 15,000. Hemoglobin was noted to be 9.6 g/dL with a platelet count of 81,000. Creatinine continues to improve at 1.72. Objective Data Objective Data The patient's most recent lab work, culture data and imaging studies have all been personally reviewed. Blood and urine cultures have not demonstrated any growth to date. Vital Signs: Vital Signs Temp Pulse Resp BP Pulse Ox O2 Del Method O2 Flow Rate 99.2 F H 85 18 101/90 H 97 Nasal Cannula 2 03/02/24 04:00 03/02/24 06:00 03/02/24 06:00 03/02/24 06:00 03/02/24 06:00 03/02/24 06:00 03/02/24 06:00 Oxygen Flow Rate (L/min) 2 Oxygen Delivery Method Nasal Cannula Weight: 240 lb 8.389 oz Body Mass Index (BMI) 42.6 Intake & Output: Intake and Output for Last 24 Hours 02/29/24 03/01/24 03/02/24 23:59 23:59 23:59 Intake Total 1776.32 / 1810.12 1582.92 / 1586.67 73.95 / 73.95 Output Total 3210 / 3210 1000 / 1000 200 / 200 Balance -1433.68 / -1399.88 582.92 / 586.67 -126.05 / -126.05 Lab / Micro Data Attestation: I reviewed the patient's lab results. 03/02/24 05:00 03/02/24 05:00 Labs: Laboratory Results - last 24 hr 03/01/24 04:30: Diff Path Review June03/02/24 05:00: WBC 14.7 H, RBC 3.34 L, Hgb 9.6 L, Hct 30.1 L, MCV 90.1, MCH 28.7, MCHC 31.9 L, RDW Std Deviation 53.4 H, RDW Coeff of Naty 16.2 H, Plt Count 81 L, MPV 12.0, Immature Gran % (Auto) 0.800, Neut % (Auto) 79.6 H, Lymph % (Auto) 11.4 L, [place] % (Auto) 6.1, Eos % (Auto) 1.6, Baso % (Auto) 0.5, Absolute Neuts (auto) 11.7 H, Absolute Lymphs (auto) 1.68, Nucleated RBC % 0.1, Sodium 139, Potassium 4.2, Chloride 111 H, Carbon Dioxide 23.0, Anion Gap 5, BUN 24 H, Creatinine 1.72 H, Estim Creat Clear Calc 38.42, Est GFR (MDRD) Af Amer 38 L, Est GFR (MDRD) Non-Af 32 L, BUN/Creatinine Ratio 14.0, Glucose 95, Calcium 8.1 L Micro: Microbiology 02/28/24 12:09 Blood Culture (Wb) - Left Hand Blood Culture - Preliminary No growth in 48 hours. 02/28/24 11:56 Blood Culture (Wb) - Anticubital Right Blood Culture - Preliminary No growth in 48 hours. 02/28/24 14:15 Urine Catheter - Montes Urine Culture - Final Culture exhibits no growth. 02/28/24 12:55 Nasal Secretion MRSA (PCR) - Final 02/28/24 12:55 Mucosa - Nasopharyngeal SARS-CoV-2, Influenza & RSV (PCR) - Final Radiography Diagnostic Testing: Radiology Impression Abdomen/Pelvis CT 02/29/24 07:28 IMPRESSION: New atelectatic changes and small bilateral pleural effusions seen at the lung bases. Status post left lithotripsy with fragmentation of the previously seen calculus in the left renal pelvis with fragment seen in the pelvis as well as in the left calyces. Left perinephric stranding. Electronically Signed: Erick Ferreira MD at 9:24 EST , Physical Exam Const alert, oriented x3 and no apparent distress Constitutional Narrative: Resting comfortably in bed. General Appearance: cooperative HEENT normocephalic, head/scalp atraumatic and moist oral mucous membranes Eyes PERRL, EOMs intact bilaterally and conjunctivae normal Neck supple General: trachea midline and CVC in place Chest inspection of chest normal Resp normal respiratory effort Auscultation: Negative for rales, rhonchi or wheezes Cardio regular rate, regular rhythm, S1 normal heart sound and S2 normal heart sound GI soft to palpation Auscultation: normoactive bowel sounds Extremity no clubbing, cyanosis or edema Skin no rashes or lesions noted Neuro CN's II-XII intact bilaterally, moves all extremities and no focal motor deficits Psych cooperative and affect normal Charges/Coding Visit Charges Inpatient E&M: 21766 Subs Hosp L3
[2024-03-02] MEDS: Midodrine HCl 5 MG Tablet 10 MG PO ×3 (08:38→17:02)
--- NOTE | 2024-03-02 09:16 | CPS ---
placed on RA at this time. sat is 95%
--- NOTE | 2024-03-02 10:10 | PCM.PN.HOSP ---
Reason for Visit Reason for Visit: Diagnoses Sepsis, unspecified organism (02/28/24) Calculus of kidney (02/28/24) Urinary tract infection, site not specified (02/28/24) Subjective Subjective LATE ENTRY NOTE FOR 03/01/2023 Patient is a 63-year-old lady with history of kidney stones admitted with sepsis secondary to acute complicated UTI. Treatment initiated per protocol, patient admitted to the intensive care unit for further management Objective Data Objective Data Vital Signs: Vital Signs Temp Pulse Resp BP Pulse Ox O2 Del Method O2 Flow Rate 99.5 F H 77 17 97/50 L 95 Room Air 2 03/02/24 08:00 03/02/24 09:00 03/02/24 09:00 03/02/24 09:00 03/02/24 09:16 03/02/24 09:16 03/02/24 09:00 Oxygen Flow Rate (L/min) 2 Oxygen Delivery Method Room Air Weight: 109.1 kg Body Mass Index (BMI) 42.6 Intake & Output: Intake and Output for Last 24 Hours 02/29/24 03/01/24 03/02/24 23:59 23:59 23:59 Intake Total 1776.32 / 1810.12 1582.92 / 1586.67 123.95 / 123.95 Output Total 3210 / 3210 1000 / 1000 200 / 200 Balance -1433.68 / -1399.88 582.92 / 586.67 -76.05 / -76.05 Lab / Micro Data 03/02/24 05:00 03/02/24 05:00 Labs: Laboratory Results - last 24 hr 03/01/24 04:30: Diff Path Review June03/02/24 05:00: WBC 14.7 H, RBC 3.34 L, Hgb 9.6 L, Hct 30.1 L, MCV 90.1, MCH 28.7, MCHC 31.9 L, RDW Std Deviation 53.4 H, RDW Coeff of Naty 16.2 H, Plt Count 81 L, MPV 12.0, Immature Gran % (Auto) 0.800, Neut % (Auto) 79.6 H, Lymph % (Auto) 11.4 L, [place] % (Auto) 6.1, Eos % (Auto) 1.6, Baso % (Auto) 0.5, Absolute Neuts (auto) 11.7 H, Absolute Lymphs (auto) 1.68, Nucleated RBC % 0.1, Sodium 139, Potassium 4.2, Chloride 111 H, Carbon Dioxide 23.0, Anion Gap 5, BUN 24 H, Creatinine 1.72 H, Estim Creat Clear Calc 38.42, Est GFR (MDRD) Af Amer 38 L, Est GFR (MDRD) Non-Af 32 L, BUN/Creatinine Ratio 14.0, Glucose 95, Calcium 8.1 L Micro: Microbiology 02/28/24 12:09 Blood Culture (Wb) - Left Hand Blood Culture - Preliminary No growth in 48 hours. 02/28/24 11:56 Blood Culture (Wb) - Anticubital Right Blood Culture - Preliminary No growth in 48 hours. 02/28/24 14:15 Urine Catheter - Montes Urine Culture - Final Culture exhibits no growth. 02/28/24 12:55 Nasal Secretion MRSA (PCR) - Final 02/28/24 12:55 Mucosa - Nasopharyngeal SARS-CoV-2, Influenza & RSV (PCR) - Final Physical Exam Narrative GENERAL: cooperative HEENT: Atraumatic; normocephalic EYES; Anicteric, Normal Conjunctiva NECK; supple, normal thyroid, RESPIRATORY: Diminished to auscultation CARDIOVASCULAR: Regular S1 S2, GI: soft, normoactive bowel sounds, : No Renal angle tenderness; EXTREMITIES: No edema, no clubbing, MUSCULOSKELETAL: no muscle wasting NEURO: Awake; no lateralizing signs. SKIN: No Rash PSYCH; Flat affect Assessment & Plan Assessment/Plan (1) Sepsis: (2) Left renal stone: (3) UTI (urinary tract infection): PLAN: Plan Patient is a 63-year-old lady with history of kidney stones admitted with sepsis secondary to acute complicated UTI. Treatment initiated per protocol, patient admitted to the intensive care unit for further management 1. Sepsis secondary to acute complicated UTI ? Patient treatment initiated per protocol with IV fluid broad-spectrum antibiotic therapy (piperacillin- tazobactam) after cultures have been obtained. Patient was initially nonresponsive to fluids and had to be started on norepinephrine. Patient urine cultures so far negative to date 2. Hematuria ? Secondary to nephrolithiasis exacerbated by patient thrombocytopenia 3. Nephrolithiasis ? Imaging studies demonstrated bilateral large left greater than right nonobstructing stone, 1.5 cm in left renal pelvis with no significant hydronephrosis: Patient had cystoscopy, balloon dilatation of left ureter, laser lithotripsy of stone and left stent placement today on 02/28/[address] Peñaloza 4. Acute blood loss anemia ? Secondary to hematuria. Patient hemoglobin on admission was 12.9 was 9.6 as of 03/02/2019 5 repeat labs ordered; monitoring H&H and transfuse if patient becomes symptomatic or hemoglobin falls below 7 5. Acute kidney injury ? Secondary to combination of obstructive uropathy as well as possibly ATN from sepsis monitoring electrolytes and treatment of the underlying etiology 6. Hypovolemic hyponatremia ? Patient started on IV fluid with subsequent monitoring of electrolytes ordered 7. Thrombocytopenia ? Patient had a precipitous drop in the platelet count from 191 on 02/27/2024 to 61 on 02/28/2024. This was attributed to patient sepsis we will continue with monitoring with CBC with differential 8. Hypophosphatemia ? Corrected per protocol repeat labs ordered for follow-up 9. Hypothyroidism ? Patient is on levothyroxine home dose continued 10. GERD ? Patient on PPI 11. Class III obesity with BMI of 42.6 ? Complicating care weight loss advised Time spent in the patient's overall evaluation,decision-making process, review of diagnostic data, adjustment of management, discussion with other providers, nursing nursing and ancillary staff involved in patient's care documentation,52 Minutes Charges/Coding Visit Charges Inpatient E&M: 82414 Init Hosp L3
[2024-03-02] MEDS: Pantoprazole Sodium 40 MG Tablet PO (10:18)
--- NOTE | 2024-03-02 12:26 | PN.HOSP_ITS ---
Reason for Visit Reason for Visit: Diagnoses Sepsis, unspecified organism (02/28/24) Calculus of kidney (02/28/24) Urinary tract infection, site not specified (02/28/24) Subjective Subjective Patient has been weaned off Levophed WBC count still remains elevated. Plan is for patient to be transferred to the progressive care unit Objective Data Objective Data Vital Signs: Vital Signs Temp Pulse Resp BP Pulse Ox O2 Del Method O2 Flow Rate 99.1 F 76 17 95/47 L 91 Room Air 2 03/02/24 11:00 03/02/24 11:00 03/02/24 11:00 03/02/24 11:00 03/02/24 11:00 03/02/24 11:00 03/02/24 09:00 Oxygen Flow Rate (L/min) 2 Oxygen Delivery Method Room Air Weight: 109.1 kg Body Mass Index (BMI) 42.6 Intake & Output: Intake and Output for Last 24 Hours 02/29/24 03/01/24 03/02/24 23:59 23:59 23:59 Intake Total 1776.32 / 1810.12 1582.92 / 1586.67 123.95 / 123.95 Output Total 3210 / 3210 1000 / 1000 200 / 200 Balance -1433.68 / -1399.88 582.92 / 586.67 -76.05 / -76.05 Lab / Micro Data 03/02/24 05:00 03/02/24 05:00 Labs: Laboratory Results - last 24 hr 03/01/24 04:30: Diff Path Review June03/02/24 05:00: WBC 14.7 H, RBC 3.34 L, Hgb 9.6 L, Hct 30.1 L, MCV 90.1, MCH 28.7, MCHC 31.9 L, RDW Std Deviation 53.4 H, RDW Coeff of Naty 16.2 H, Plt Count 81 L, MPV 12.0, Immature Gran % (Auto) 0.800, Neut % (Auto) 79.6 H, Lymph % (Auto) 11.4 L, [place] % (Auto) 6.1, Eos % (Auto) 1.6, Baso % (Auto) 0.5, Absolute Neuts (auto) 11.7 H, Absolute Lymphs (auto) 1.68, Nucleated RBC % 0.1, Sodium 139, Potassium 4.2, Chloride 111 H, Carbon Dioxide 23.0, Anion Gap 5, BUN 24 H, Creatinine 1.72 H, Estim Creat Clear Calc 38.42, Est GFR (MDRD) Af Amer 38 L, E st GFR (MDRD) Non-Af 32 L, BUN/Creatinine Ratio 14.0, Glucose 95, Calcium 8.1 L Micro: Microbiology 02/28/24 12:09 Blood Culture (Wb) - Left Hand Blood Culture - Preliminary No growth in 48 hours. 02/28/24 11:56 Blood Culture (Wb) - Anticubital Right Blood Culture - Preliminary No growth in 48 hours. 02/28/24 14:15 Urine Catheter - Montes Urine Culture - Final Culture exhibits no growth. 02/28/24 12:55 Nasal Secretion MRSA (PCR) - Final 02/28/24 12:55 Mucosa - Nasopharyngeal SARS-CoV-2, Influenza & RSV (PCR) - Final Physical Exam Narrative GENERAL: cooperative HEENT: Atraumatic; normocephalic EYES; Anicteric, Normal Conjunctiva NECK; supple, normal thyroid, RESPIRATORY: Diminished to auscultation CARDIOVASCULAR: Regular S1 S2, GI: soft, normoactive bowel sounds, : No Renal angle tenderness; EXTREMITIES: No edema, no clubbing, MUSCULOSKELETAL: no muscle wasting NEURO: Awake; no lateralizing signs. SKIN: No Rash PSYCH; Flat affect Assessment & Plan Assessment/Plan (1) Sepsis: (2) Left renal stone: (3) UTI (urinary tract infection): PLAN: Plan Patient is a 63-year-old lady with history of kidney stones admitted with sepsis secondary to acute complicated UTI. Treatment initiated per protocol, patient admitted to the intensive care unit for further management 1. Sepsis secondary to acute complicated UTI ? Patient treatment initiated per protocol with IV fluid broad-spectrum antibiotic therapy (piperacillin- tazobactam) after cultures have been obtained. Patient was initially nonresponsive to fluids and had to be started on norepinephrine. Patient urine cultures so far negative to date ? 03/02/2024Patient has been weaned off Levophed WBC count still remains elevated. Plan is for patient to be transferred to the progressive care unit 2. Hematuria ? Secondary to nephrolithiasis exacerbated by patient thrombocytopenia 3. Nephrolithiasis ? Imaging studies demonstrated bilateral large left greater than right nonobstructing stone, 1.5 cm in left renal pelvis with no significant hydronephrosis: Patient had cystoscopy, balloon dilatation of left ureter, laser lithotripsy of stone and left stent placement today on 02/28/[address] Peñaloza 4. Acute blood loss anemia ? Secondary to hematuria. Patient hemoglobin on admission was 12.9 was 9.6 as of 03/02/2019 5 repeat labs ordered; monitoring H&H and transfuse if patient becomes symptomatic or hemoglobin falls below 7 5. Acute kidney injury ? Secondary to combination of obstructive uropathy as well as possibly ATN from sepsis monitoring electrolytes and treatment of the underlying etiology 6. Hypovolemic hyponatremia ? Patient started on IV fluid with subsequent monitoring of electrolytes ordered 7. Thrombocytopenia ? Patient had a precipitous drop in the platelet count from 191 on 02/27/2024 to 61 on 02/28/2024. This was attributed to patient sepsis we will continue with monitoring with CBC with differential 8. Hypophosphatemia ? Corrected per protocol repeat labs ordered for follow-up 9. Hypothyroidism ? Patient is on levothyroxine home dose continued 10. GERD ? Patient on PPI 11. Class III obesity with BMI of 42.6 ? Complicating care weight loss advised Time spent in the patient's overall evaluation,decision-making process, review of diagnostic data, adjustment of management, discussion with other providers, nursing nursing and ancillary staff involved in patient's care documentation,50 Minutes Charges/Coding Visit Charges Inpatient E&M: 90591 [facility] L3
--- NOTE | 2024-03-02 13:00 | CASEMGMT ---
Addendum entered by Efraín Young 03/02/24 16:40: Pt made aware that, so far, on [facility] agencies have been able to accept her, but there are still a couple pending. Pt states, if unable to find [facility] that can accept her, she still wants to go home & will do her own exercises @ home. Discussed OP therapy, but she declines wanting this. Original Note: BOY RODGERS NOTE: Therapy has worked w/pt today. Pt ambulated 64 ft w/use of WW and CGA, additional therapy recommended. BOY RODGERS to room. Pt resting in bed. Discussed discharge planning and questions answered. Pt wishes to discharge home and declines SNF. She feels she will be safe to be home alone when her is @ work. Discussed HHC. Pt thinks she would like this, but wanted BOY RODGERS to talk w/her 1st. Pt called from her cell phone and had this RN VISHAL talk w/him. He is agreeable to pt returning home and feels she will be safe to do so. He is also agreeable to [facility]. Pt denies having preference of [facility] co and states is okay to send a blanket referral to all agencies in network w/her insurance to see who is available/able to accept her. shani Pimentel certified surgical assistant made aware. Yasemin EARLY RN, CM
[2024-03-02 13:10] LABS: Magnesium 2.2 mg/dL (1.6-2.6); Phosphorus 2.2 mg/dL (2.5-4.9)
[2024-03-02] MEDS: oxyCODONE 5 MG Tablet PO (14:17)
[2024-03-02] MEDS: Ondansetron 4 MG/2 ML Vial IV (14:18)
--- NOTE | 2024-03-02 14:22 | CASEMGMT ---
referral faxed to [facility] (p) [phone] (f) [phone]. Loren Valle DC Planning Asst.
[2024-03-02 14:27] LABS: Pathologist Review Reviewed
--- NOTE | 2024-03-02 15:52 | CASEMGMT ---
Addendum entered by Loren Valle 03/02/24 16:07: Referral sent to [facility]. Loren Valle DC Planning Asst. Original Note: HH referral sent to [facility], [facility], and [facility] were all declined. New referral sent to [facility]. Loren Valle DC Planning Asst.
[2024-03-02] MEDS: Ensure Plus High Protein 120 ML LIQUID PO (17:02)
--- NOTE | 2024-03-02 19:19 | CASEMGMT ---
BOY RODGERS NOTE: Message received via [facility] from [facility], stating they are interested in referral, unable to see the attached documents, and requested they be re-attached. BOY RODGERS edited referral and sent H/P, HHC order, and PN's from today. Yasemin EARLY RN, CM
[2024-03-02] MEDS: Senna/Docusate Sodium 1 Tablet 2 TABLET PO (20:34)
[2024-03-03] VITALS (7 sets, daily range): BP systolic 100–143; BP diastolic 46–70; PULSE 75–83; RESP 16–20; TEMP 36.4–36.9; O2SAT 92–97; BMI 42.3
[2024-03-03] MEDS: Piperacil/Tazobactam 3.375 GM in 0.9% Normal Saline (50mL MB+) 50 ML IV ×3 (04:55→22:40)
[2024-03-03 05:03] LABS: Absolute Lymphocyte Count 1.96 X10^3/uL (0.83-4.51); Basophil# 0.11 X10^3/uL; Basophil% 0.7 % (0-1); Eosinophil# 0.32 X10^3/uL; Eosinophils% 2.1 % (0-5); Hematocrit 30.6 % (37-47); Hemoglobin 9.7 g/dL (12.0-15.0); Lymphocyte # 1.96 X10^3/ul (0.83-4.51); Mean Corp Hgb Conc 31.7 g/dL (32-36); Mean Corpuscular Hgb 28.5 pg (27.0-32.0); Mean Platelet Vol. 12.4 fl (6.2-12.0); Monocyte# 1.24 X10^3/uL; Monocyte% 8.3 % (0-10); NRBC Flagged by Analyzer 0.2 % (0-5); Neutrophil # 10.95 X10^3/uL (2.7-7.7); Platelet Count 110 K/mm3 (150-450); RBC Distribution Width CV 16.2 % (11.6-14.6); RBC Distribution Width SD 53.4 fl (35.1-43.9)
[2024-03-03 05:36] LABS: Anion Gap 6 (5-15); BUN 26 mg/dL (7-18); BUN/Creat Ratio 16.1 RATIO (10-20); Calcium,Total 8.6 mg/dL (8.5-10.1); Chloride 107 mmol/L (98-107); Creatinine, Serum 1.61 mg/dL (0.55-1.02); EST Glomerular Filtration Rate 34 mL/min (>60); Est Glom Filt Rate - Afr Amer 41 mL/min (>60); Estimated Creatinine Clearance 41.07 ml/min; Glucose 87 mg/dL (74-106); Magnesium 1.9 mg/dL (1.6-2.6); Phosphorus 2.4 mg/dL (2.5-4.9); Sodium Level 135 mmol/L (136-145)
--- NOTE | 2024-03-03 08:17 | PCM.PN.HOSP ---
Reason for Visit Reason for Visit: Diagnoses Sepsis, unspecified organism (02/28/24) Calculus of kidney (02/28/24) Urinary tract infection, site not specified (02/28/24) Subjective Subjective Patient seen, per nursing staff patient had to be placed on supplemental oxygen during the night. Consistent use of incentive spirometry and Pep therapy encouraged Objective Data Objective Data Vital Signs: Vital Signs Temp Pulse Resp BP Pulse Ox O2 Del Method O2 Flow Rate 97.5 F L 83 20 H 121/56 H 93 Room Air 2 03/03/24 03:36 03/03/24 03:36 03/03/24 03:36 03/03/24 03:36 03/03/24 03:36 03/03/24 03:36 03/02/24 09:00 Oxygen Flow Rate (L/min) 2 Oxygen Delivery Method Room Air Weight: 109.1 kg Body Mass Index (BMI) 42.6 Intake & Output: Intake and Output for Last 24 Hours 03/01/24 03/02/24 03/03/24 23:59 23:59 23:59 Intake Total 1582.92 / 1586.67 173.95 / 173.95 50 / 50 Output Total 1000 / 1000 600 / 900 650 / 650 Balance 582.92 / 586.67 -426.05 / -726.05 -600 / -600 Lab / Micro Data 03/03/24 04:28 03/03/24 04:28 Labs: Laboratory Results - last 24 hr 03/01/24 04:30: Diff Path Review Reviewed 03/02/24 05:00: Phosphorus 2.2 L, Magnesium 2.2 03/03/24 04:28: WBC 15.0 H, RBC 3.40 L, Hgb 9.7 L, Hct 30.6 L, MCV 90.0, MCH 28.5, MCHC 31.7 L, RDW Std Deviation 53.4 H, RDW Coeff of Naty 16.2 H, Plt Count 110 L, MPV 12.4 H, Immature Gran % (Auto) 2.900 H, Neut % (Auto) 73.0 H, Lymph % (Auto) 13.0 L, [place] % (Auto) 8.3, Eos % (Auto) 2.1, Baso % (Auto) 0.7, Absolute Neuts (auto) 11.0 H, Absolute Lymphs (auto) 1.96, Nucleated RBC % 0.2, Sodium 135 L, Potassium 4.0, Chloride 107, Carbon Dioxide 22.0, Anion Gap 6, BUN 26 H, Creatinine 1.61 H, Estim Creat Clear Calc 41.07, Est GFR (MDRD) Af Amer 41 L, Est GFR (MDRD) Non-Af 34 L, BUN/Creatinine Ratio 16.1, Glucose 87, Calcium 8.6, Phosphorus 2.4 L, Magnesium 1.9 Micro: Microbiology 02/28/24 12:09 Blood Culture (Wb) - Left Hand Blood Culture - Preliminary No growth in 48 hours. 02/28/24 11:56 Blood Culture (Wb) - Anticubital Right Blood Culture - Preliminary No growth in 48 hours. 02/28/24 14:15 Urine Catheter - Montes Urine Culture - Final Culture exhibits no growth. 02/28/24 12:55 Nasal Secretion MRSA (PCR) - Final 02/28/24 12:55 Mucosa - Nasopharyngeal SARS-CoV-2, Influenza & RSV (PCR) - Final Physical Exam Narrative GENERAL: cooperative HEENT: Atraumatic; normocephalic EYES; Anicteric, Normal Conjunctiva NECK; supple, normal thyroid, RESPIRATORY: Diminished to auscultation CARDIOVASCULAR: Regular S1 S2, GI: soft, normoactive bowel sounds, : No Renal angle tenderness; EXTREMITIES: No edema, no clubbing, MUSCULOSKELETAL: no muscle wasting NEURO: Awake; no lateralizing signs. SKIN: No Rash PSYCH; Flat affect Assessment & Plan Assessment/Plan (1) Sepsis: (2) Left renal stone: (3) UTI (urinary tract infection): PLAN: Plan Patient is a 63-year-old lady with history of kidney stones admitted with sepsis secondary to acute complicated UTI. Treatment initiated per protocol, patient admitted to the intensive care unit for further management 1. Sepsis secondary to acute complicated UTI ? Patient treatment initiated per protocol with IV fluid broad-spectrum antibiotic therapy (piperacillin- tazobactam) after cultures have been obtained. Patient was initially nonresponsive to fluids and had to be started on norepinephrine. Patient urine cultures so far negative to date ? 03/02/2024Patient has been weaned off Levophed WBC count still remains elevated. Plan is for patient to be transferred to the progressive care unit 2. Hematuria ? Secondary to nephrolithiasis exacerbated by patient thrombocytopenia 3. Nephrolithiasis ? Imaging studies demonstrated bilateral large left greater than right nonobstructing stone, 1.5 cm in left renal pelvis with no significant hydronephrosis: Patient had cystoscopy, balloon dilatation of left ureter, laser lithotripsy of stone and left stent placement today on 02/28/[address] Peñaloza 4. Acute blood loss anemia ? Secondary to hematuria. Patient hemoglobin on admission was 12.9 was 9.6 as of 03/02/2019 5 repeat labs ordered; monitoring H&H and transfuse if patient becomes symptomatic or hemoglobin falls below 7 5. Acute kidney injury ? Secondary to combination of obstructive uropathy as well as possibly ATN from sepsis monitoring electrolytes and treatment of the underlying etiology ? 03/03/2024 patient kidney function continues to improve 6. Hypovolemic hyponatremia ? Patient started on IV fluid with subsequent monitoring of electrolytes ordered ? 03/03/2024; sodium levels up to 135 7. Thrombocytopenia ? Patient had a precipitous drop in the platelet count from 191 on 02/27/2024 to 61 on 02/28/2024. This was attributed to patient sepsis we will continue with monitoring with CBC with differential ? 03/03/2024; platelet count up to 110 8. Hypophosphatemia ? Corrected per protocol repeat labs ordered for follow-up 9. Hypothyroidism ? Patient is on levothyroxine home dose continued 10. GERD ? Patient on PPI 11. Class III obesity with BMI of 42.6 ? Complicating care weight loss advised 12. Nocturnal hypoxia ? Do suspect underlying obstructive sleep apnea exacerbated by atelectasis following surgery.Patient was placed on supplemental oxygen during the night. Consistent use of incentive spirometry and Pep therapy encouraged Time spent in the patient's overall evaluation,decision-making process, review of diagnostic data, adjustment of management, discussion with other providers, nursing nursing and ancillary staff involved in patient's care documentation,50 Minutes Charges/Coding Visit Charges Inpatient E&M: 13387 [facility] L3
[2024-03-03] MEDS: Pantoprazole Sodium 40 MG Tablet PO (09:28)
[2024-03-03] MEDS: Midodrine HCl 5 MG Tablet 10 MG PO (09:28)
[2024-03-03] MEDS: Ensure Plus High Protein 120 ML LIQUID PO ×2 (09:32→18:05)
[2024-03-03] MEDS: 0.9% Normal Saline (1000mL) 1,000 ML 15 ML IV (09:33)
--- NOTE | 2024-03-03 09:52 | PCM.PN.GU ---
Subjective Subjective 63-year-old female who had a very large stone in the LEFT kidney she underwent laser lithotripsy to laser the stone into a bunch of little pieces postop she developed sepsis unfortunately but she is now fully recovering I think we can DC the Montes, Central line is probably not necessary anymore CAT scan was done postop because she did have a lot of pain on review the CAT scan she just still has a lot of fragments in the kidney so I am going to recommend she have a second stage procedure but this will be done as an outpatient when she is fully recovered sociability go home when she is stable I do not think she is ready go home yet today perhaps tomorrow or Tuesday. Objective Data Objective Data Vital Signs: Vital Signs Temp Pulse Resp BP Pulse Ox O2 Del Method O2 Flow Rate 97.7 F L 75 16 100/46 L 97 Nasal Cannula 2 03/03/24 09:18 03/03/24 09:18 03/03/24 09:18 03/03/24 09:18 03/03/24 09:18 03/03/24 09:18 03/03/24 09:18 Oxygen Flow Rate (L/min) 2 Oxygen Delivery Method Nasal Cannula Weight: 109.1 kg Body Mass Index (BMI) 42.6 Intake & Output: Intake and Output for Last 24 Hours 03/01/24 03/02/24 03/03/24 23:59 23:59 23:59 Intake Total 1582.92 / 1586.67 173.95 / 173.95 100 / 100 Output Total 1000 / 1000 600 / 900 650 / 650 Balance 582.92 / 586.67 -426.05 / -726.05 -550 / -550 Lab / Micro Data 03/03/24 04:28 03/03/24 04:28 Labs: Laboratory Results - last 24 hr 03/01/24 04:30: Diff Path Review Reviewed 03/02/24 05:00: Phosphorus 2.2 L, Magnesium 2.2 03/03/24 04:28: WBC 15.0 H, RBC 3.40 L, Hgb 9.7 L, Hct 30.6 L, MCV 90.0, MCH 28.5, MCHC 31.7 L, RDW Std Deviation 53.4 H, RDW Coeff of Naty 16.2 H, Plt Count 110 L, MPV 12.4 H, Immature Gran % (Auto) 2.900 H, Neut % (Auto) 73.0 H, Lymph % (Auto) 13.0 L, [place] % (Auto) 8.3, Eos % (Auto) 2.1, Baso % (Auto) 0.7, Absolute Neuts (auto) 11.0 H, Absolute Lymphs (auto) 1.96, Nucleated RBC % 0.2, Sodium 135 L, Potassium 4.0, Chloride 107, Carbon Dioxide 22.0, Anion Gap 6, BUN 26 H, Creatinine 1.61 H, Estim Creat Clear Calc 41.07, Est GFR (MDRD) Af Amer 41 L, Est GFR (MDRD) Non-Af 34 L, BUN/Creatinine Ratio 16.1, Glucose 87, Calcium 8.6, Phosphorus 2.4 L, Magnesium 1.9 Micro: Microbiology 02/28/24 12:09 Blood Culture (Wb) - Left Hand Blood Culture - Preliminary No growth in 48 hours. 02/28/24 11:56 Blood Culture (Wb) - Anticubital Right Blood Culture - Preliminary No growth in 48 hours. 02/28/24 14:15 Urine Catheter - Montes Urine Culture - Final Culture exhibits no growth. 02/28/24 12:55 Nasal Secretion MRSA (PCR) - Final 02/28/24 12:55 Mucosa - Nasopharyngeal SARS-CoV-2, Influenza & RSV (PCR) - Final
--- NOTE | 2024-03-03 09:55 | EKG12_ITS ---
Test Reason : P Blood Pressure : */* mmHG Vent. Rate : 77 BPM Atrial Rate : 77 BPM P-R Int : 144 ms QRS Dur : 84 ms QT Int : 382 ms P-R-T Axes : 30 -2 2 degrees QTcB Int : 432 ms Normal sinus rhythm Normal ECG When compared with ECG of 28-Feb-2024 15:42, MANUAL COMPARISON REQUIRED DATA IS UNCONFIRMED Confirmed by GREG RICKETTS, KE ([id number]), business editor DENISHA SELLERS ([id number]) on 03/05/2024 1:57:41 PM Referred By: MACIEJ Confirmed By: KE GARZA MD
[2024-03-03] MEDS: 0.9% Saline Lock 10 ML Syringe IV (13:51)
--- NOTE | 2024-03-03 14:37 | PCM.PN.TICU ---
Objective Data Objective Data Vital Signs: Vital Signs Last response Temperature 36.5 C L 03/03/24 09:18 Temperature Source Oral 03/03/24 09:18 Pulse Rate 77 03/03/24 12:09 Pulse Strength Weak (1+) 03/02/24 10:00 Respiratory Rate 20 H 03/03/24 12:09 Respiratory Effort Normal 03/03/24 09:59 Respiratory Depth Normal 03/02/24 20:00 Respiratory Pattern Normal 03/03/24 09:59 Blood Pressure 126/70 H 03/03/24 12:09 Blood Pressure Mean 88 03/03/24 12:09 Blood Pressure Source Monitor 03/03/24 12:09 Blood Pressure Position Sitting 03/03/24 12:09 Blood Pressure Location Left Forearm 03/03/24 12:09 Baseline BP 108/65 02/28/24 09:30 Pulse Ox 95 03/03/24 12:09 Oxygen Delivery Method Room Air 03/03/24 12:09 Oxygen Flow Rate (L/min) 2 03/03/24 09:18 I&O: I&O Last 24 Hours 03/02/24 03/03/24 03/03/24 23:59 11:59 23:59 Intake Total 50 / 173.95 119 / 119 Output Total 400 / 900 650 / 650 Balance -350 / -726.05 -531 / -531 I&O: Total Stay 02/27/24 14:28 thru 03/03/24 10:49 Intake Total 96046.09 Output Total 6235 Balance 4313.09 Current Meds Ordered / Administered: Current meds ordered / Administered Generic Name Dose Route Start Last Admin Trade Name Taniya PRN Reason Stop Dose Admin Acetaminophen 650 mg 02/27/24 16:36 03/01/24 17:28 Acetaminophen 325 Mg Tablet PO 650 mg Q6H PRN PRN Administration Pain Score 1-10 Al Hydroxide/Mg Hydroxide 30 ml 02/27/24 16:36 02/28/24 20:12 Mag Hydrox/Al Hydrox/Simeth 30 Ml Udc PO 30 ml Q4H PRN PRN Administration HEARTBURN Fentanyl Citrate 25 mcg 02/29/24 01:55 02/29/24 02:25 Fentanyl 100 Mcg/2 Ml Ampul IV 25 mcg Q2H PRN PRN Administration pain 6-10 Sodium Chloride 100 mls @ 15 mls/hr 02/27/24 17:29 IV .Q6H40M PRN Saline Flush Sodium Chloride 100 mls @ 15 mls/hr 02/27/24 17:29 IV .Q6H40M PRN Additional IVPB Infusion Sodium Chloride 1,000 mls @ 15 mls/hr 02/28/24 06:55 03/03/24 10:49 IV 03/04/24 20:14 0 mls/hr .Q48H SAUNDRA Infusion Protocol Piperacillin Sod/Tazobactam 50 mls @ 12.5 mls/hr 02/28/24 12:45 03/03/24 13:51 Sod 3.375 gm/ Sodium Chloride IV 12.5 mls/hr Q8 SAUNDRA Administration Metoclopramide HCl 10 mg 02/27/24 16:36 02/27/24 19:42 Metoclopramide 10 Mg/2 Ml Vial IV 10 mg Q8H PRN PRN Administration Nausea/vomiting Midodrine 10 mg 03/01/24 08:50 03/03/24 12:34 Midodrine Hcl 5 Mg Tablet PO Not Given TID[facility] Nutritional Formula (Lactose Free) 120 ml 02/28/24 08:00 03/03/24 13:41 Ensure Plus High Protein 120 Ml Liquid PO Not Given TIDCM [facility] Ondansetron HCl 4 mg 02/27/24 16:36 03/02/24 14:18 Ondansetron 4 Mg/2 Ml Vial IV 4 mg Q8H PRN Administration NAUSEA/VOMITING Oxycodone HCl 5 - 10 mg 02/27/24 16:36 03/02/24 14:17 Oxycodone 5 Mg Tablet PO 10 mg Q6H PRN PRN Administration Pain Score 4-10 Pantoprazole Sodium 40 mg 02/29/24 10:00 03/03/24 09:28 Pantoprazole Sodium 40 Mg Tablet PO 40 mg DAILY SAUNDRA Administration Senna/Docusate Sodium 2 tablet 02/28/24 22:00 03/03/24 09:29 Senna/Docusate Sodium 1 Tablet PO Not Given BID SAUNDRA Sodium Chloride 10 - 40 ml 02/27/24 17:29 03/03/24 13:51 0.9% Saline Lock 10 Ml Syringe IV 10 ml UD PRN Administration SALINE FLUSH Lab / Micro Data 03/03/24 04:28 03/03/24 04:28 Labs: Laboratory Results - last 24 hr 03/03/24 04:28: WBC 15.0 H, RBC 3.40 L, Hgb 9.7 L, Hct 30.6 L, MCV 90.0, MCH 28.5, MCHC 31.7 L, RDW Std Deviation 53.4 H, RDW Coeff of Naty 16.2 H, Plt Count 110 L, MPV 12.4 H, Immature Gran % (Auto) 2.900 H, Neut % (Auto) 73.0 H, Lymph % (Auto) 13.0 L, [place] % (Auto) 8.3, Eos % (Auto) 2.1, Baso % (Auto) 0.7, Absolute Neuts (auto) 11.0 H, Absolute Lymphs (auto) 1.96, Nucleated RBC % 0.2, Sodium 135 L, Potassium 4.0, Chloride 107, Carbon Dioxide 22.0, Anion Gap 6, BUN 26 H, Creatinine 1.61 H, Estim Creat Clear Calc 41.07, Est GFR (MDRD) Af Amer 41 L, Est GFR (MDRD) Non-Af 34 L, BUN/Creatinine Ratio 16.1, Glucose 87, Calcium 8.6, Phosphorus 2.4 L, Magnesium 1.9 Assessment and Plan . Assessment and plan: UTI Acute kidney injury Morbid obesity Hypothyroidism GERD Patient has improvment of UTI, is no longer septic On RA Will need to finish 7 course antibiotics PT/OT Needs to walk TID to evaluate functional status We will at this time sign off Critical Care Time: The entirety of this encounter was done via Telemedicine Physical Exam Const alert and oriented x3 General Appearance: cooperative and well developed HEENT normocephalic Eyes PERRL Resp normal respiratory effort Effort and Inspection: able to speak in complete sentences Cardio regular rate and regular rhythm GI normal to inspection, nondistended, normoactive bowel sounds Extremity no clubbing, cyanosis or edema Skin General Skin Exam: erythema Psych Appearance: well kempt Subjective Subjective Patient was on 2 L overnight. She is now on room air. Patient is on IS. Patient is moving around.
[2024-03-03] MEDS: Senna/Docusate Sodium 1 Tablet 2 TABLET PO (22:40)
[2024-03-03] MEDS: MELATONIN 3 MG TABLET PO (22:41)
[2024-03-04] VITALS (9 sets, daily range): BP systolic 111–157; BP diastolic 52–90; PULSE 73–84; RESP 18–22; TEMP 36.3–36.8; O2SAT 94–96
--- NOTE | 2024-03-04 02:35 | EKG12_ITS ---
Test Reason : CP Blood Pressure : */* mmHG Vent. Rate : 77 BPM Atrial Rate : 77 BPM P-R Int : 140 ms QRS Dur : 78 ms QT Int : 422 ms P-R-T Axes : 24 10 34 degrees QTcB Int : 477 ms Normal sinus rhythm Normal ECG When compared with ECG of 03-Mar-2024 11:06, MANUAL COMPARISON REQUIRED DATA IS UNCONFIRMED Confirmed by GREG RICKETTS, KE ([id number]), managing editor DENISHA SELLERS ([id number]) on 03/05/2024 1:56:50 PM Referred By: Confirmed By: KE GARZA MD
--- NOTE | 2024-03-04 02:37 | NURSING ---
Patient complaining of chest pain in the middle of chest. Denies it radiating anywhere. Lungs with faint wheezes at this time. Bp 111/52 hr 73. spo2 95%
--- NOTE | 2024-03-04 02:39 | NURSING ---
Respiratory on the floor will have them get a EKG. Patient does not have any breathing treatments on her mar. Will contact Dr. Navas.
[2024-03-04] MEDS: Acetaminophen 325 MG Tablet 650 MG PO ×2 (03:00→21:15)
[2024-03-04 05:13] LABS: Hemoglobin 9.5 g/dL (12.0-15.0); Mean Corp Hgb Conc 31.7 g/dL (32-36); Mean Corpuscular Hgb 28.4 pg (27.0-32.0); Mean Corpuscular Volume 89.8 fL (81-99); Mean Platelet Vol. 11.9 fl (6.2-12.0); POSITIVE COUNT YES; POSITIVE MORPHOLOGY YES; Platelet Count 131 K/mm3 (150-450); RBC Distribution Width CV 15.9 % (11.6-14.6); RBC Distribution Width SD 51.7 fl (35.1-43.9); Red Blood Count 3.34 M/mm3 (4.2-5.4); White Blood Count 9.9 K/mm3 (4.4-11.0)
[2024-03-04 05:14] LABS: Differential Indicated MANUAL DIFF
[2024-03-04 05:32] LABS: Anion Gap 7 (5-15); BUN 25 mg/dL (7-18); BUN/Creat Ratio 15.6 RATIO (10-20); Calcium,Total 8.8 mg/dL (8.5-10.1); Chloride 107 mmol/L (98-107); EST Glomerular Filtration Rate 34 mL/min (>60); Est Glom Filt Rate - Afr Amer 42 mL/min (>60); Estimated Creatinine Clearance 41.17 ml/min; Glucose 93 mg/dL (74-106); Potassium 3.6 mmol/L (3.5-5.1); Sodium Level 139 mmol/L (136-145)
[2024-03-04] MEDS: Piperacil/Tazobactam 3.375 GM in 0.9% Normal Saline (50mL MB+) 50 ML IV ×3 (05:40→20:56)
[2024-03-04 06:33] LABS: Eosinophil 9 % (0-5); Lymphocyte 20 % (19-41); Metamyelocyte 1 % (0-1); Monocyte 9 % (0-10); Myelocyte 2 % (0-0); Neutrophil-Segmented 59 % (47-70); Total Cells Counted 100 (MANUAL DIFF)
[2024-03-04 06:34] LABS: Absolute Lymphocyte Count 1.98 X10^3/uL (0.83-4.51); Absolute Neutrophil Count 5.9 X10^3/uL (2.0-7.7)
[2024-03-04 06:37] LABS: Platelet Estimate SLT DEC (ADEQ); Red Cell Morphology NORM C+C NORMAL (NORM C&C)
--- NOTE | 2024-03-04 07:22 | PN.HOSP_ITS ---
Reason for Visit Reason for Visit: Diagnoses Sepsis, unspecified organism (02/28/24) Calculus of kidney (02/28/24) Urinary tract infection, site not specified (02/28/24) Subjective Subjective Patient seen admit to improving pain control she however did complain of swelling in both hands and feet. An order was given for patient to receive 40 mg of IV Lasix Objective Data Objective Data Vital Signs: Vital Signs Temp Pulse Resp BP Pulse Ox O2 Del Method O2 Flow Rate 98.0 F 73 18 111/52 L 95 Nasal Cannula 2 03/04/24 02:30 03/04/24 02:30 03/04/24 02:30 03/04/24 02:30 03/04/24 02:30 03/04/24 02:30 03/04/24 02:30 Oxygen Flow Rate (L/min) 2 Oxygen Delivery Method Nasal Cannula Weight: 108.4 kg Body Mass Index (BMI) 42.3 Intake & Output: Intake and Output for Last 24 Hours 03/02/24 03/03/24 03/04/24 23:59 23:59 23:59 Intake Total 173.95 / 173.95 619 / 919 600 / 600 Output Total 600 / 900 650 / 650 Balance -426.05 / -726.05 -31 / 269 600 / 600 Lab / Micro Data 03/04/24 04:34 03/04/24 04:34 Labs: Laboratory Results - last 24 hr 03/04/24 04:34: WBC 9.9, RBC 3.34 L, Hgb 9.5 L, Hct 30.0 L, MCV 89.8, MCH 28.4, MCHC 31.7 L, RDW Std Deviation 51.7 H, RDW Coeff of Naty 15.9 H, Plt Count 131 L, MPV 11.9, Neut % (Auto) Not Reportable, Absolute Neuts (auto) 5.9, Absolute Lymphs (auto) 1.98, Total Counted 100, Neutrophils % (Manual) 59, Lymphocytes % (Manual) 20, Monocytes % (Manual) 9, Eosinophils % (Manual) 9 H, Metamyelocytes % 1, Myelocytes % 2 H, Diff Path Review June, Platelet Estimate SLT DEC, RBC Morphology NORM C+C, Sodium 139, Potassium 3.6, Chloride 107, Carbon Dioxide 25.0, Anion Gap 7, BUN 25 H, Creatinine 1.60 H, Estim Creat Clear Calc 41.17, E st GFR (MDRD) Af Amer 42 L, Est GFR (MDRD) Non-Af 34 L, BUN/Creatinine Ratio 15.6, Glucose 93, Calcium 8.8 Micro: Microbiology 02/28/24 12:09 Blood Culture (Wb) - Left Hand Blood Culture - Preliminary No growth in 48 hours. 02/28/24 11:56 Blood Culture (Wb) - Anticubital Right Blood Culture - Preliminary No growth in 48 hours. 02/28/24 14:15 Urine Catheter - Montes Urine Culture - Final Culture exhibits no growth. 02/28/24 12:55 Nasal Secretion MRSA (PCR) - Final 02/28/24 12:55 Mucosa - Nasopharyngeal SARS-CoV-2, Influenza & RSV (PCR) - Final Physical Exam Narrative GENERAL: cooperative HEENT: Atraumatic; normocephalic EYES; Anicteric, Normal Conjunctiva NECK; supple, normal thyroid, RESPIRATORY: Diminished to auscultation CARDIOVASCULAR: Regular S1 S2, GI: soft, normoactive bowel sounds, : No Renal angle tenderness; EXTREMITIES: Bipedal edema, no clubbing, MUSCULOSKELETAL: no muscle wasting NEURO: Awake; no lateralizing signs. SKIN: No Rash PSYCH; Flat affect Assessment & Plan Assessment/Plan (1) Sepsis: (2) Left renal stone: (3) UTI (urinary tract infection): PLAN: Plan Patient is a 63-year-old lady with history of kidney stones admitted with sepsis secondary to acute complicated UTI. Treatment initiated per protocol, patient admitted to the intensive care unit for further management 1. Sepsis secondary to acute complicated UTI ? Patient treatment initiated per protocol with IV fluid broad-spectrum antibiotic therapy (piperacillin- tazobactam) after cultures have been obtained. Patient was initially nonresponsive to fluids and had to be started on norepinephrine. Patient urine cultures so far negative to date ? 03/02/2024Patient has been weaned off Levophed WBC count still remains elevated. Plan is for patient to be transferred to the progressive care unit ? 03/04/2024;WBC count down to normal range of 9.9 2. Hematuria ? Secondary to nephrolithiasis exacerbated by patient thrombocytopenia 3. Nephrolithiasis ? Imaging studies demonstrated bilateral large left greater than right nonobstructing stone, 1.5 cm in left renal pelvis with no significant hydronephrosis: Patient had cystoscopy, balloon dilatation of left ureter, laser lithotripsy of stone and left stent placement today on 02/28/[address] Peñaloza 4. Acute blood loss anemia ? Secondary to hematuria. Patient hemoglobin on admission was 12.9 was 9.6 as of 03/02/2019 5 repeat labs ordered; monitoring H&H and transfuse if patient becomes symptomatic or hemoglobin falls below 7 5. Acute kidney injury ? Secondary to combination of obstructive uropathy as well as possibly ATN from sepsis monitoring electrolytes and treatment of the underlying etiology ? 03/03/2024 patient kidney function continues to improve 6. Hypovolemic hyponatremia ? Patient started on IV fluid with subsequent monitoring of electrolytes ordered ? 03/03/2024; sodium levels up to 135 7. Thrombocytopenia ? Patient had a precipitous drop in the platelet count from 191 on 02/27/2024 to 61 on 02/28/2024. This was attributed to patient sepsis we will continue with monitoring with CBC with differential ? 03/03/2024; platelet count up to 110 8. Hypophosphatemia ? Corrected per protocol repeat labs ordered for follow-up 9. Hypothyroidism ? Patient is on levothyroxine home dose continued 10. GERD ? Patient on PPI 11. Class III obesity with BMI of 42.6 ? Complicating care weight loss advised 12. Nocturnal hypoxia ? Do suspect underlying obstructive sleep apnea exacerbated by atelectasis following surgery.Patient was placed on supplemental oxygen during the night. Consistent use of incentive spirometry and Pep therapy encouraged Time spent in the patient's overall evaluation,decision-making process, review of diagnostic data, adjustment of management, discussion with other providers, nursing nursing and ancillary staff involved in patient's care documentation,35 Minutes Charges/Coding Visit Charges Inpatient E&M: 00284 Subs Hosp L2
[2024-03-04] MEDS: Ensure Plus High Protein 120 ML LIQUID PO ×3 (08:54→17:47)
[2024-03-04] MEDS: Pantoprazole Sodium 40 MG Tablet PO (08:54)
[2024-03-04] MEDS: Furosemide 100 MG/10 ML Vial 60 MG IV (09:23)
[2024-03-04] MEDS: 0.9% Saline Lock 10 ML Syringe IV ×2 (09:23→20:56)
[2024-03-04] MEDS: NYSTATIN 500,000 UNIT/5 ML UDC 500000 UNIT PO ×2 (18:51→21:02)
[2024-03-04] MEDS: Albuterol 2.5 MG/3 ML VIAL.NEB. INHALATION (23:40)
[2024-03-05] VITALS (7 sets, daily range): BP systolic 143–155; BP diastolic 69–82; PULSE 64–72; RESP 18–22; TEMP 36.3–36.9; O2SAT 96–98; BMI 42.7
[2024-03-05] MEDS: Piperacil/Tazobactam 3.375 GM in 0.9% Normal Saline (50mL MB+) 50 ML IV (05:05)
[2024-03-05] MEDS: Levothyroxine 25 MCG TABLET PO (05:14)
[2024-03-05] MEDS: Acetaminophen 325 MG Tablet 650 MG PO (05:14)
[2024-03-05] MEDS: Levothyroxine 100 MCG Tablet PO (05:14)
[2024-03-05 06:03] LABS: Hematocrit 29.7 % (37-47); Hemoglobin 9.8 g/dL (12.0-15.0); Mean Corpuscular Hgb 28.9 pg (27.0-32.0); Mean Corpuscular Volume 87.6 fL (81-99); Mean Platelet Vol. 11.7 fl (6.2-12.0); POSITIVE COUNT YES; POSITIVE MORPHOLOGY YES; Platelet Count 175 K/mm3 (150-450); RBC Distribution Width CV 15.5 % (11.6-14.6); RBC Distribution Width SD 48.6 fl (35.1-43.9); Red Blood Count 3.39 M/mm3 (4.2-5.4); White Blood Count 8.5 K/mm3 (4.4-11.0)
[2024-03-05 06:31] LABS: Anion Gap 10 (5-15); BUN 22 mg/dL (7-18); BUN/Creat Ratio 13.8 RATIO (10-20); Calcium,Total 8.5 mg/dL (8.5-10.1); Chloride 102 mmol/L (98-107); Creatinine, Serum 1.59 mg/dL (0.55-1.02); EST Glomerular Filtration Rate 35 mL/min (>60); Est Glom Filt Rate - Afr Amer 42 mL/min (>60); Estimated Creatinine Clearance 41.66 ml/min; Glucose 97 mg/dL (74-106); Sodium Level 138 mmol/L (136-145)
[2024-03-05 06:35] LABS: Differential Indicated MANUAL DIFF
[2024-03-05 07:05] LABS: Eosinophil 5 % (0-5); Lymphocyte 28 % (19-41); Monocyte 5 % (0-10); Myelocyte 2 % (0-0); Neutrophil-Segmented 60 % (47-70); Total Cells Counted 100 (MANUAL DIFF)
[2024-03-05 07:08] LABS: Macrocytosis RARE; Platelet Estimate ADEQUATE (ADEQ)
[2024-03-05 07:09] LABS: Absolute Neutrophil Count 5.1 X10^3/uL (2.0-7.7); Tear Drop Cell RARE
[2024-03-05 07:10] LABS: Absolute Lymphocyte Count 2.39 X10^3/uL (0.83-4.51)
--- NOTE | 2024-03-05 07:11 | DS.PCM_ITS ---
Providers Date of Admission: 02/28/24 Date of Discharge: 03/05/24 Primary Care Physician: Dr. Melva Han MD Consultations 02/28/24 11:15 Consult: Hospitalist Routine Consulting Provider: Domenico Peñaloza Reason for Consult: Sepsis EMERGENT Consult: No Notified: Yes Date Notified: 02/28/24 Time Notified: 11:17 Method of Notification: Text Comments:: Dr. Peñaloza to call medical about consult 02/28/24 12:31 Consult: Ear [facility] Laboratory Technician / Pulmonary Medicine Routine Consulting Provider: Intensivists/Pulmonary Med Reason for Consult: sepsis after stone lithotripsy EMERGENT Consult: No Notified: Yes Date Notified: 02/28/24 Time Notified: 11:28 Method of Notification: Text Reason For Visit: LEFT KIDNEY STONE Diagnosis Discharge Diagnosis (1) Sepsis: Status: Acute Code(s): A41.9 - Sepsis, unspecified organism (2) Left renal stone: Status: Acute Code(s): N20.0 - Calculus of kidney Plan: Status post laser of a large stone in the left kidney after surgery ended up developing sepsis at the time of the surgery the stone did not look infected I do not have any obvious purulent discharge or any signs of there was an infected stone. Continue with broad-spectrum antibiotics await cultures continue with supportive measures for the ICU her blood pressure is stabilizing hopefully she will respond and she is currently clinically stable but still in critical condition. (3) UTI (urinary tract infection): Status: Acute Code(s): N39.0 - Urinary tract infection, site not specified Medications at Discharge Home Medications cholestyramine (with sugar) 4 gram oral powder 4 ea PO 4X/DAY 02/27/24 ciprofloxacin HCl 500 mg tablet (Cipro) 500 mg PO BID #14 tabs 02/27/24 levothyroxine 100 mcg tablet 100 mcg PO DAILY 02/27/24 levothyroxine 25 mcg tablet mcg PO WEFR tue and tuesday takes 25 mcg 02/27/24 omeprazole 20 mg capsule,delayed release 20 mg PO DAILY 02/27/24 oxycodone 5 mg tablet 5 mg PO Q6H PRN pain 3 days #14 tabs 02/27/24 Hospital Course Operations - (Laser of large kidney stone to left side) Summary of Care Provided Minutes Spent on Discharge: 35 Hospital Course: 63-year-old female presented to the emergency room with severe pain from a large stone in the left kidney she is cardiovascularly stable no fevers or chills or signs of infection. We took her to surgery and we end up doing laser lithotripsy of her left kidney stones after her lithotripsy she became septic blood pressure dropped she was transferred to the ICU was on pressors then fully recovered all the cultures surprisingly came back negative but she has now recovered completely and stable on PCU. Should be discharged home today she resume all her regular medications I will give her a course of antibiotics to go home with she does have some remaining stones in the left kidney with a fairly large so we will bring her back as an outpatient to laser these remaining fragments that she has a stent in place she was comfortable going home with family. Physical Exam Const alert and oriented x3 General Appearance: cooperative HEENT normocephalic and head/scalp atraumatic Eyes PERRL and EOMs intact bilaterally Neck supple, no JVD and no carotid bruits Resp normal respiratory effort, normal air movement and clear to auscultation bilaterally Cardio regular rate and no murmurs GI normal to inspection, nondistended, normoactive bowel sounds and soft to palpation Extremity normal capillary refill General Extremity: no tenderness to palpation of joints or extremities; Negative for edema Skin no rashes or lesions noted and no wounds General Skin Exam: no breakdown Neuro CN's II-XII intact bilaterally Psych affect normal Appearance: appropriate Weight / BMI Weight Weight: 109.4 kg Body Mass Index (BMI) 42.7 ABG / Lab / Microbiology Data 03/05/24 05:14 03/05/24 05:14 Laboratory: Laboratory Results - last 24 hr 03/05/24 05:14: WBC 8.5, RBC 3.39 L, Hgb 9.8 L, Hct 29.7 L, MCV 87.6, MCH 28.9, MCHC 33.0, RDW Std Deviation 48.6 H, RDW Coeff of Naty 15.5 H, Plt Count 175, MPV 11.7, Neut % (Auto) Not Reportable, Absolute Neuts (auto) 5.1, Absolute Lymphs (auto) 2.39, Total Counted 100, Neutrophils % (Manual) 60, Lymphocytes % (Manual) 28, Monocytes % (Manual) 5, Eosinophils % (Manual) 5, Myelocytes % 2 H, Diff Path Review May foll, Platelet Estimate ADEQUATE, Macrocytosis RARE, Tear Drop Cells RARE, Sodium 138, Potassium 3.0 L, Chloride 102, Carbon Dioxide 26.0, Anion Gap 10, BUN 22 H, Creatinine 1.59 H, Estim Creat Clear Calc 41.66, Est GFR (MDRD) Af Amer 42 L, Est GFR (MDRD) Non-Af 35 L, BUN/Creatinine Ratio 13.8, Glucose 97, Calcium 8.5 Microbiology: Microbiology 02/28/24 12:09 Blood Culture (Wb) - Left Hand Blood Culture - Final No growth in 5 days. 02/28/24 11:56 Blood Culture (Wb) - Anticubital Right Blood Culture - Final No growth in 5 days. 02/28/24 14:15 Urine Catheter - Montes Urine Culture - Final Culture exhibits no growth. 02/28/24 12:55 Nasal Secretion MRSA (PCR) - Final 02/28/24 12:55 Mucosa - Nasopharyngeal SARS-CoV-2, Influenza & RSV (PCR) - Final D/C Instructions Discharge Diet: No restrictions Call your doctor if you observe: Fever of 101 or Higher DC O2, CPAP, BIPAP Needs Home O2 Discharge instructions: No Please Follow Up With: Domenico Peñaloza MD When: Call [phone] for an appointment Meaningful Use Info Meaningful Use Meaningful Use Diagnoses (Choose all that apply): None applicable Ischemic Stroke Statin Dosing Therapy Reference: STATIN DOSE THERAPY REFERENCE: * Patients > 75 years receive moderate or high dose statin therapy. * Patients 75 years or YOUNGER should receive HIGH intensity statin dose unless contraindicated. You will be required to document reason for non-treatment if statin daily dose does not meet guidelines. HIGH DOSE STATIN THERAPY DAILY Atorvastatin > than or = to 40 mg Rosuvastatin > than or = to 20 mg Amlodipine + Atorvastatin > than or = to 2.5/40 mg Ezetimibe + Simvastatin 10/80 mg Simvastatin 80mg Discharge Plan Admission Admit Date/Time: 02/28/24 15:44 Primary Reason for Your Visit: laser of stone and stent Attending Provider: Domenico Peñaloza Primary Care Provider: Melva Han Consulting Providers: Vincent Barreto; Byron Orona; Domenico Peñaloza; Elie Moore; Jeff Montesinos; Nate Holliday; Yohannes Berry; Byron Tirado; Keith Velasco; Kennedy Perera; Jyothi Morales; Jaspreet Hou; Dallin Davenport; Ramon Marley; Virgie Barba; Albina Mondragon; Zachariah Freeman; Ryan Salgado; Ang Miller; Weston Anderson; Lashawn Jackman; Delfino Jacques; Suleiman Genao; Sergio Nunez; Ihsan Rodriguez Instructions Patient Instructions: ED Kidney Stone with Pain Discharge Orders/Prescriptions Prescriptions: New ciprofloxacin HCl [Cipro] 500 mg tablet 500 mg PO BID Qty: 14 0RF oxycodone 5 mg tablet 5 mg PO Q6H PRN (Reason: pain) 3 Days Qty: 14 0RF Continued levothyroxine 25 mcg tablet PO MOWE Patient Comments: TAKE 1 TABLET BY MOUTH ON TUESDAY, TUESDAY AND TUESDAY , TAKE WITH 100 MCG levothyroxine 100 mcg tablet 100 mcg PO DAILY omeprazole 20 mg capsule,delayed release(DR/EC) 20 mg PO DAILY cholestyramine (with sugar) 4 gram powder 4 ea PO 4X/DAY Discontinued sulfamethoxazole-trimethoprim 800-160 mg tablet 1 tab PO BID Referrals / Follow Up: Domenico Peñaloza MD [Med Staff - Active Staff] - Melva Han MD [Primary Care Provider] - Disposition Disposition (needs filled in before D/C Order can be placed): Home, Self Care
--- NOTE | 2024-03-05 07:13 | DCINST_ITS ---
Discharge Instructions Diet Discharge Diet: No restrictions DC O2, CPAP, BIPAP needs Home O2 Discharge instructions: No Dressing / Incision Discharge Activity: Return to Normal Activity and May Not Drive (while taking narcotic pain medications.) Dressing / Incision Call your doctor if you observe: Fever of 101 or Higher Follow Up Care Please Follow Up With: Domenico Peñaloza MD When: Call [phone] for an appointment Test Results: Test results from this visit will be discussed in further detail at your follow- up appointment, if applicable. Discharge Plan Admission Admit Date/Time: 02/28/24 15:44 Primary Reason for Your Visit: laser of stone and stent Attending Provider: Domenico Peñaloza Primary Care Provider: Melva Han Consulting Providers: Vincent Barreto; Byron Orona; Domenico Peñaloza; Elie Moore; Jeff Montesinos; Nate Holliday; Yohannes Berry; Byron Tirado; Keith Velasco; Kennedy Perera; Jyothi Morales; Jaspreet Hou; Dallin Davenport; Ramon Marley; Virgie Barba; Albina Mondragon; Zachariah Freeman; Ryan Salgado; Ang Miller; Weston Anderson; Lashawn Jackman; Delfino Jacques; Suleiman Genao; Sergio Nunez; Ihsan Rodriguez Instructions Patient Instructions: ED Kidney Stone with Pain Discharge Orders/Prescriptions Prescriptions: New ciprofloxacin HCl [Cipro] 500 mg tablet 500 mg PO BID Qty: 14 0RF oxycodone 5 mg tablet 5 mg PO Q6H PRN (Reason: pain) 3 Days Qty: 14 0RF Continued levothyroxine 25 mcg tablet PO MOWEFR Patient Comments: TAKE 1 TABLET BY MOUTH ON TUESDAY, TUESDAY AND TUESDAY , TAKE WITH 100 MCG levothyroxine 100 mcg tablet 100 mcg PO DAILY omeprazole 20 mg capsule,delayed release(DR/EC) 20 mg PO DAILY cholestyramine (with sugar) 4 gram powder 4 ea PO 4X/DAY Discontinued sulfamethoxazole-trimethoprim 800-160 mg tablet 1 tab PO BID Referrals / Follow Up: Domenico Peñaloza MD [Med Staff - Active Staff] - Melva Han MD [Primary Care Provider] - Disposition Disposition (needs filled in before D/C Order can be placed): Home, Self Care
--- NOTE | 2024-03-05 07:50 | PCM.PN.HOSP ---
Reason for Visit Reason for Visit: Diagnoses Sepsis, unspecified organism (02/28/24) Calculus of kidney (02/28/24) Urinary tract infection, site not specified (02/28/24) Subjective Subjective Patient seen clinical condition improved. Objective Data Objective Data Vital Signs: Vital Signs Temp Pulse Resp BP Pulse Ox O2 Del Method O2 Flow Rate 97.3 F L 64 22 H 150/82 H 96 Room Air 2 03/05/24 03:48 03/05/24 05:59 03/05/24 03:48 03/05/24 03:48 03/05/24 03:48 03/05/24 03:54 03/04/24 02:30 Oxygen Flow Rate (L/min) 2 Oxygen Delivery Method Room Air Weight: 109.4 kg Body Mass Index (BMI) 42.7 Intake & Output: Intake and Output for Last 24 Hours 03/03/24 03/04/24 03/05/24 23:59 23:59 23:59 Intake Total 619 / 919 1200 / 1200 50 / 50 Output Total 650 / 650 800 / 2500 1700 / 1700 Balance -31 / 269 400 / -1300 -1650 / -1650 Lab / Micro Data 03/05/24 05:14 03/05/24 05:14 Labs: Laboratory Results - last 24 hr 03/05/24 05:14: WBC 8.5, RBC 3.39 L, Hgb 9.8 L, Hct 29.7 L, MCV 87.6, MCH 28.9, MCHC 33.0, RDW Std Deviation 48.6 H, RDW Coeff of Naty 15.5 H, Plt Count 175, MPV 11.7, Neut % (Auto) Not Reportable, Absolute Neuts (auto) 5.1, Absolute Lymphs (auto) 2.39, Total Counted 100, Neutrophils % (Manual) 60, Lymphocytes % (Manual) 28, Monocytes % (Manual) 5, Eosinophils % (Manual) 5, Myelocytes % 2 H, Diff Path Review May foll, Platelet Estimate ADEQUATE, Macrocytosis RARE, Tear Drop Cells RARE, Sodium 138, Potassium 3.0 L, Chloride 102, Carbon Dioxide 26.0, Anion Gap 10, BUN 22 H, Creatinine 1.59 H, Estim Creat Clear Calc 41.66, Est GFR (MDRD) Af Amer 42 L, Est GFR (MDRD) Non-Af 35 L, BUN/Creatinine Ratio 13.8, Glucose 97, Calcium 8.5 Micro: Microbiology 02/28/24 12:09 Blood Culture (Wb) - Left Hand Blood Culture - Final No growth in 5 days. 02/28/24 11:56 Blood Culture (Wb) - Anticubital Right Blood Culture - Final No growth in 5 days. 02/28/24 14:15 Urine Catheter - Montes Urine Culture - Final Culture exhibits no growth. 02/28/24 12:55 Nasal Secretion MRSA (PCR) - Final 02/28/24 12:55 Mucosa - Nasopharyngeal SARS-CoV-2, Influenza & RSV (PCR) - Final Physical Exam Narrative GENERAL: cooperative HEENT: Atraumatic; normocephalic EYES; Anicteric, Normal Conjunctiva NECK; supple, normal thyroid, RESPIRATORY: Diminished to auscultation CARDIOVASCULAR: Regular S1 S2, GI: soft, normoactive bowel sounds, : No Renal angle tenderness; EXTREMITIES: Bipedal edema, no clubbing, MUSCULOSKELETAL: no muscle wasting NEURO: Awake; no lateralizing signs. SKIN: No Rash PSYCH; Flat affect Assessment & Plan Assessment/Plan (1) Sepsis: (2) Left renal stone: (3) UTI (urinary tract infection): PLAN: Plan Patient is a 63-year-old lady with history of kidney stones admitted with sepsis secondary to acute complicated UTI. Treatment initiated per protocol, patient admitted to the intensive care unit for further management 1. Sepsis secondary to acute complicated UTI ? Patient treatment initiated per protocol with IV fluid broad-spectrum antibiotic therapy (piperacillin- tazobactam) after cultures have been obtained. Patient was initially nonresponsive to fluids and had to be started on norepinephrine. Patient urine cultures so far negative to date ? 03/02/2024Patient has been weaned off Levophed WBC count still remains elevated. Plan is for patient to be transferred to the progressive care unit ? 03/04/2024;WBC count down to normal range of 9.9 ? 03/05/2024; plan is for patient to be assessed for discharge 2. Hematuria ? Secondary to nephrolithiasis exacerbated by patient thrombocytopenia 3. Nephrolithiasis ? Imaging studies demonstrated bilateral large left greater than right nonobstructing stone, 1.5 cm in left renal pelvis with no significant hydronephrosis: Patient had cystoscopy, balloon dilatation of left ureter, laser lithotripsy of stone and left stent placement today on 02/28/[address] Peñaloza 4. Acute blood loss anemia ? Secondary to hematuria. Patient hemoglobin on admission was 12.9 was 9.6 as of 03/02/2019 5 repeat labs ordered; monitoring H&H and transfuse if patient becomes symptomatic or hemoglobin falls below 7 5. Acute kidney injury ? Secondary to combination of obstructive uropathy as well as possibly ATN from sepsis monitoring electrolytes and treatment of the underlying etiology ? 03/03/2024 patient kidney function continues to improve 6. Hypovolemic hyponatremia ? Patient started on IV fluid with subsequent monitoring of electrolytes ordered ? 03/03/2024; sodium levels up to 135 7. Thrombocytopenia ? Patient had a precipitous drop in the platelet count from 191 on 02/27/2024 to 61 on 02/28/2024. This was attributed to patient sepsis we will continue with monitoring with CBC with differential ? 03/03/2024; platelet count up to 110 8. Hypophosphatemia ? Corrected per protocol repeat labs ordered for follow-up 9. Hypothyroidism ? Patient is on levothyroxine home dose continued 10. GERD ? Patient on PPI 11. Class III obesity with BMI of 42.6 ? Complicating care weight loss advised 12. Nocturnal hypoxia ? Do suspect underlying obstructive sleep apnea exacerbated by atelectasis following surgery.Patient was placed on supplemental oxygen during the night. Consistent use of incentive spirometry and Pep therapy encouraged Time spent in the patient's overall evaluation,decision-making process, review of diagnostic data, adjustment of management, discussion with other providers, nursing nursing and ancillary staff involved in patient's care documentation,35 Minutes Charges/Coding Visit Charges Inpatient E&M: 53910 Subs Hosp L2
[2024-03-05] MEDS: NYSTATIN 500,000 UNIT/5 ML UDC 500000 UNIT PO (08:27)
[2024-03-05] MEDS: Ensure Plus High Protein 120 ML LIQUID PO ×2 (08:27→12:54)
[2024-03-05] MEDS: Pantoprazole Sodium 40 MG Tablet PO (08:28)
--- NOTE | 2024-03-05 09:04 | CASEMGMT ---
[facility] has accepted but is having difficulty verifying insurance. Copy of insurance card sent along with dc instructions. Loren Valle DC Planning Asst.
--- NOTE | 2024-03-05 10:23 | CASEMGMT ---
[facility] accepted and will start care 03/06. RN CM updated. Loren Valle DC Planning Asst.
--- NOTE | 2024-03-05 10:29 | CASEMGMT ---
Patient has order for discharge. HHC has been setup with [facility]. RN CM in to discuss needs at discharge. Patient updated regarding HHC setup and planned start of care date. Patient denies further needs or concerns at discharge. Patient had no further questions or concerns.
--- NOTE | 2024-03-05 10:33 | PHA.DC.MC.R ---
Pharmacy [facility] has performed discharge medication reconciliation and counseling for this patient. 1. CIPROFLOXACIN 500MG PO BID X 7 DAYS 2. OXYCODONE 5MG PO Q6H PRN PAIN 3. STOP BACTRIM The patient's discharge medication list was reviewed for discrepancies and discrepancies were resolved. The patient was counseled on the following discharge medications and changes in medications for homegoing were reviewed. The Reason for Use, instructions for use, and potential side effects were reviewed for all new medications. The patient's questions regarding all of their medications were answered. The patient was able to verbally demonstrate an understanding of their discharge medications. Medications at Discharge Home Medications cholestyramine (with sugar) 4 gram oral powder 4 ea PO 4X/DAY diarrhea 02/27/24 ciprofloxacin HCl 500 mg tablet (Cipro) 500 mg PO BID #14 tabs 02/27/24 levothyroxine 100 mcg tablet 100 mcg PO DAILY thyroid 02/27/24 levothyroxine 25 mcg tablet mcg PO FR tue and tuesday takes 25 mcg 02/27/24 omeprazole 20 mg capsule,delayed release 20 mg PO DAILY acid reflux 02/27/24 oxycodone 5 mg tablet 5 mg PO Q6H PRN pain 3 days #14 tabs 02/27/24
[2024-03-05 16:16] LABS: Pathologist Review Reviewed
[2024-03-08 09:34] LABS: Pathologist Review Reviewed
== END 2024-03-05 15:00 | disposition home health service (06) | DRG 853 ==
LOC: ED 16:40 → MS3 17:05 → ICU 02-28 15:49 → PCU 03-05 07:11 → ICU 03-05 14:31 → PCU 03-05 14:38
PROVIDERS: Anesthesiology; Family Medicine; Internal Medicine; Internal Medicine Critical Care Medicine; Admitting Provider Urology; Emergency Provider Emergency Medicine; PCP Family Medicine; Visit Provider Urology
PROC: 0TJ98ZZ Inspection of Ureter, Via Natural or Artificial Opening Endoscopic (ICD-10-PCS; CPT 52352; principal; 2024-02-28 07:20)
DX: A41.9 Sepsis, unspecified organism (principal); R65.21 Severe sepsis with septic shock; E87.20 Acidosis, unspecified; D62 Acute posthemorrhagic anemia; Z68.41 Body mass index [BMI] 40.0-44.9, adult; N17.9 Acute kidney failure, unspecified; E87.1 Hypo-osmolality and hyponatremia; N20.2 Calculus of kidney with calculus of ureter; N39.0 Urinary tract infection, site not specified; E03.9 Hypothyroidism, unspecified; D69.6 Thrombocytopenia, unspecified; E66.01 Morbid (severe) obesity due to excess calories; E80.6 Other disorders of bilirubin metabolism; K21.9 Gastro-esophageal reflux disease without esophagitis; D72.819 Decreased white blood cell count, unspecified; G47.33 Obstructive sleep apnea (adult) (pediatric); I95.9 Hypotension, unspecified; Z79.890 Hormone replacement therapy; N20.0 Calculus of kidney; N13.9 Obstructive and reflux uropathy, unspecified
CPT/HCPCS: 36415; 51702; 71045; 74176; 80048; 80053; 80076; 81001; 82550; 82962; 83605; 83735; 84100; 84443; 85025; 85610; 85730; 86850; 86900; 86901; 87040; 87086; 87631; 87641; 93005; 94640; 94668; 94762; 97110; 97116; 97162; 97166; 97530; 97535; 97803; 99284; A4216; C1769; C2617; J0696; J0744; J1940; J2405